=== PATIENT | male | born 1965 | race Caucasian/White ===

== ENCOUNTER 2019-07-24 04:39 | Inpatient (IN) | payer MEDICAID ==
[~2019-07-24] VITALS: Ht 185.4 cm; Wt 71.7 kg
[2019-07-24 04:50] VITALS: BP 165/90
--- NOTE | 2019-07-24 04:50 | NUR ---
ED Nurse Note: Patient walked in to ER due to epigastric pain w/ nausea and vomiting x5 episode since last night after eating dinner. No stated medical history. Alert and oriented, verbally responsive. No SOB. Breathing even and unlabored. Afebrile. VSS.
--- NOTE | 2019-07-24 04:59 | Emergency Room Report ---
History of Present Illness General Chief Complaint: Abdominal Pain Source: Patient (Anisha Narvaez ) Present Illness HPI Patient presents with complaints of midepigastric abdominal pain Reports that he had eaten dinner he was getting ready for sleep The pain came on fairly sharp in nature Patient had some increased nausea denies any vomiting denies any diarrhea Patient reports that his left arm started to feel tingling as well and he presented to [facility] emergency room The is here and reports that after waiting 2 hours they left and came to this emergency room Pain is still persistent 10 out of 10 Cramping and sharp denies any shortness of breath denies any pleurisy (Anisha Narvaez DO) Allergies: Coded Allergies: No Known Allergies (Unverified , 07/24/19) Patient History Past Medical History: see triage record Reviewed Nursing Documentation: PMH: Agreed; PSxH: Agreed (MichaelAnisha solano DO) Review of Systems All Other Systems: negative except mentioned in HPI (Anisha Narvaez DO) Physical Exam Vital Signs Date Time Temp Pulse Resp B/P (MAP) Pulse Ox O2 Delivery O2 Flow Rate FiO2 07/24/19 04:44 98.8 60 20 165/90 (115) 100 Sp02 EP Interpretation: reviewed, normal General Appearance: mild distress - Appears uncomfortable in acute pain Head: normocephalic, atraumatic Eyes: bilateral eye PERRL, bilateral eye EOMI ENT: hearing grossly normal, normal pharynx, TMs + canals normal, uvula midline Neck: full range of motion, supple, no meningismus, no bony tend Respiratory: lungs clear, normal breath sounds, no rhonchi, no respiratory distress, no retraction, no accessory muscle use Cardiovascular #1: normal peripheral pulses, regular rate, rhythm, no edema, no gallop, no JVD, no murmur Gastrointestinal: normal bowel sounds, non tender - On palpation however subjectively points to the epigastric region, soft, no mass, no organomegaly, non-distended, no guarding, no hernia, no pulsatile mass, no rebound Genitourinary: no CVA tenderness Musculoskeletal: normal inspection Neurologic: oriented x3, responsive, activity therapist III-XII nml as tested, motor strength/ tone normal, sensory intact Psychiatric: mood/affect normal Skin: no rash Lymphatic: normal inspection, no adenopathy (Anisha Narvaez DO) Medical Decision Making Diagnostic Impression: Primary Impression: Chest pain Additional Impression: Cholecystitis ER Course Patient is a fairly complex patient with multiple differential to consideration including but not limited to cardiac cardiopulmonary and vascular emergencies Given the epigastric component consideration such as gastritis, cholecystitis, perforation also entertained Patient has initial blood work and imaging initiated X-ray does not show any obvious acute pathology the right hemidiaphragm is mildly elevated nonspecific patient's white blood cell count is elevated at 19, 000 CT imaging is being obtained Patient does feel better after acute intervention Labs Test 07/24/19 04:49 White Blood Count 19.1 K/UL (4.8-10.8) Red Blood Count 5.21 M/UL (4.70-6.10) Hemoglobin 16.7 G/DL (14.2-18.0) Hematocrit 48.0 % (42.0-52.0) Mean Corpuscular Volume 92 FL (80-99) Mean Corpuscular Hemoglobin 32.1 PG (27.0-31.0) Mean Corpuscular Hemoglobin Concent 34.8 G/DL (32.0-36.0) Red Cell Distribution Width 10.9 % (11.6-14.8) Platelet Count 325 K/UL (150-450) Mean Platelet Volume 6.1 FL (6.5-10.1) Neutrophils (%) (Auto) % (45.0-75.0) Lymphocytes (%) (Auto) % (20.0-45.0) Monocytes (%) (Auto) % (1.0-10.0) Eosinophils (%) (Auto) % (0.0-3.0) Basophils (%) (Auto) % (0.0-2.0) Sodium Level 137 MMOL/L (136-145) Potassium Level 4.1 MMOL/L (3.5-5.1) Chloride Level 102 MMOL/L (98-107) Carbon Dioxide Level 22 MMOL/L (21-32) Anion Gap 13 mmol/L (5-15) Blood Urea Nitrogen 22 mg/dL (7-18) Creatinine 1.1 MG/DL (0.55-1.30) Estimat Glomerular Filtration Rate > 60 mL/min (>60) Glucose Level 153 MG/DL (74-106) Calcium Level 9.9 MG/DL (8.5-10.1) (Anisha Narvaez DO) ER Course See above note. CT with possible cholecystitis. Zosyn ordered. Admit Dr. Triplett and consult Dr. Farooq. (Gato Doss MD) EKG Diagnostic Results Rate: normal Rhythm: NSR ST Segments: other - Nonspecific ST changes (Anisha Narvaez DO) Rhythm Strip Diag. Results EP Interpretation: yes Rate: 60 Rhythm: NSR, no PVC's, no ectopy (Anisha Narvaez DO) Chest X-Ray Diagnostic Results Chest X-Ray Diagnostic Results : Chest X-Ray Ordered: Yes # of Views/Limited/Complete: 1 View Indication: Chest Pain EP Interpretation: Yes Interpretation: no consolidation, no effusion, no pneumothorax Impression: No acute disease Electronically Signed by: Anisha Narvaez DO (Anisha Narvaez DO) CT/MRI/US Diagnostic Results CT/MRI/US Diagnostic Results : Imaging Test Ordered: CT abd/pelvis Impression Significantly distended gallbladder with wall thickening and pericholecystic fluid, suspicious for cholecystitis. No definite radiopaque gallstones. No intrahepatic or extrahepatic ductal dilatation. Correlate with clinical findings and sonogram. Diverticulosis. There is stranding noted in the left lower quadrant. If there is left lower quadrant pain, early mild acute diverticulitis suspected. Mild segmental wall thickening of colon can be seen in the setting of mild colitis. No small bowel obstruction. No free air or fluid collections. Trace amount of free fluid. Normal appendix. Small left inguinal hernia containing fat and colon. No secondary intra- abdominal colonic obstruction. There is some induration of the herniated contents. Correlate with point tenderness. Small hemangioma in the right liver lobe. No pancreatitis or pyelonephritis. No hydronephrosis. (Gato Doss MD) Last Vital Signs Date Time Temp Pulse Resp B/P (MAP) Pulse Ox O2 Delivery O2 Flow Rate FiO2 07/24/19 04:44 98.8 60 20 165/90 (115) 100 (Anisha Narvaez DO) Status: improved (Gato Doss MD) Disposition: ADMITTED INPATIENT Condition: Serious Referrals: NOT CHOSEN IPA/,REFERRING (PCP) Anisha Narvaez DO Jul 24, 2019 04:59 Gato Doss MD Jul 24, 2019 07:20
[2019-07-24] MEDS ORDERED: Omnipaque-300 100ml vial INJ PRN (05:00)
[2019-07-24 05:16] LABS: HEMOGLOBIN 16.7 G/DL (14.2-18.0); MEAN CORPUSCULAR VOLUME 92 FL (80-99); PLATELET COUNT 325 K/UL (150-450); RED BLOOD COUNT 5.21 M/UL (4.70-6.10); RED CELL DISTRIBUTION WIDTH 10.9 % (11.6-14.8); WHITE BLOOD COUNT 19.1 K/UL (4.8-10.8)
--- NOTE | 2019-07-24 05:26 | NUR ---
ED Nurse Note: Xray done at bedside.
[2019-07-24 05:32] LABS: ANION GAP 13 mmol/L (5-15); BLOOD UREA NITROGEN 22 mg/dL (7-18); CALCIUM 9.9 MG/DL (8.5-10.1); CARBON DIOXIDE 22 MMOL/L (21-32); CHLORIDE 102 MMOL/L (98-107); CREATININE 1.1 MG/DL (0.55-1.30); POTASSIUM 4.1 MMOL/L (3.5-5.1); SODIUM 137 MMOL/L (136-145)
--- NOTE | 2019-07-24 05:48 | NUR ---
ED Nurse Note: Pt taken for CT.
[2019-07-24 05:50] LABS: ALANINE AMINOTRANSFERASE 39 U/L (12-78); ALBUMIN 4.1 G/DL (3.4-5.0); ALKALINE PHOSPHATASE 62 U/L (46-116); BILIRUBIN,TOTAL 0.4 MG/DL (0.2-1.0); CKMB 1.6 NG/ML (0.0-3.6); CREATINE KINASE 141 U/L (26-308)
--- NOTE | 2019-07-24 06:00 | NUR ---
ED Nurse Note: PT came back from CT.
[2019-07-24 06:28] LABS: ASPARTATE AMINO TRANSFERASE 27 U/L (15-37)
[2019-07-24] MEDS ORDERED: Mylanta II UD 30ml ORAL ONE (06:30)
[2019-07-24] MEDS ORDERED: Dicyclomine HCl 10mg/5ml oral soln ORAL ONE (06:30)
[2019-07-24 06:58] VITALS: BP 145/88
[2019-07-24 07:03] LABS: APPEARANCE,URINE SLIGHTLY CLOUDY; BILIRUBIN, URINE NEGATIVE (NEGATIVE); COLOR,URINE PALE YELLOW; GLUCOSE, URINE (UA) NEGATIVE (NEGATIVE); KETONES,URINE 3+ (NEGATIVE); LEUKOCYTE ESTERASE ,URINE NEGATIVE (NEGATIVE); NITRITE,URINE NEGATIVE (NEGATIVE); PH,URINE 7 (4.5-8.0); PROTEIN,URINE 1+ (NEGATIVE); UROBILINOGEN,URINE NORMAL MG/DL (0.0-1.0)
--- NOTE | 2019-07-24 07:04 | Diagnostic Imaging Report ---
Indication: Abdominal pain Technique: CT of the abdomen and pelvis utilizing automated exposure control with intravenous contrast. Venous scanning performed. Axial, sagittal and coronal reformats presented. CT dose: Total DLP 802.3 mGycm; CTDI vol 14.4 mGy Comparison: None Findings: Minimal dependent atelectasis noted in the lung bases. Heart size within normal limits. No pericardial effusion. There is gallbladder distention. Gallbladder wall thickening and some mild pericholecystic inflammatory changes noted concerning for acute cholecystitis. No radiopaque gallstones identified. No biliary ductal dilatation. Hepatic contour is smooth. Hepatic veins and portal veins appear patent. Within the right hepatic lobe there is a 2.5 cm mass with peripheral nodular enhancement suggesting hemangioma. Spleen adrenal glands unremarkable. Some punctate calcifications noted in the region of the pancreatic head/uncinate process. No peripancreatic inflammatory changes or fluid collections. Pancreatic enhancement is uniform. No pancreatic ductal dilatation. Kidneys enhance symmetrically. No urinary tract stone, hydronephrosis or perinephric stranding. Bladder is mildly distended but otherwise unremarkable. Prostate is mildly heterogeneous. A left inguinal hernia is noted containing loops of the sigmoid colon. Some induration is noted within the herniated contents. Correlation with physical exam is recommended to assess for disability. There is colonic diverticulosis. Some mild stranding is noted in the left lower quadrant which may be related to the described hernia. The possibility of early/mild diverticulitis cannot be excluded. There is evidence of small bowel obstruction. Appendix is normal in caliber. A small fat-containing right inguinal hernia is also noted. Abdominal aorta normal in caliber with scattered atherosclerotic calcifications. There is a small fat-containing umbilical hernia. Mild degenerative changes noted in the lumbar spine. No acute osseous abnormality. IMPRESSION: * Distended gallbladder with wall thickening and mild pericholecystic inflammatory changes concerning for acute cholecystitis. Correlate clinically. Consider further imaging of the gallbladder with ultrasound or HIDA. * Left inguinal hernia containing fat and loop of sigmoid colon. No evidence to suggest associated obstruction. There is some induration of the herniated contents however. Correlate with physical exam to assess for reducibility. * Colonic diverticulosis. Mild stranding noted in the left lower quadrant which may related to the above-described hernia. If there is left lower quadrant pain the possibility of mild diverticulitis cannot be excluded. * Small fat-containing right inguinal hernia and fat-containing umbilical hernia. * Small hemangioma in the right hepatic lobe. Additional findings as above. This corresponds with the preliminary report by [facility]. The CT scanner at [facility] is accredited by the [employer] and the scans are performed using protocols designed to limit radiation exposure to as low as reasonably achievable to attain images of sufficient resolution adequate for diagnostic evaluation.
--- NOTE | 2019-07-24 07:11 | NUR ---
HAND-OFF: Report given to Thais LOGAN. No new further order at this time. Endorsed plan of care.
[2019-07-24] MEDS ORDERED: Piperacillin/Tazobactam 3.375 GM in NS 110 ML IVPB ONE (07:15)
--- NOTE | 2019-07-24 08:09 | NUR ---
ED Nurse Note: Report given to DESMOND Richard at telemetry unit.
--- NOTE | 2019-07-24 08:30 | NUR ---
NURSE NOTES: pt admitted in stable condition. fruit canner on. bed locked and in lowest position. Call light within reach. Pt is AOx4. Belonging list reviewed with pt.
[2019-07-24] MEDS ORDERED: Nitroglycerin Subl 0.4mg tab SL PRN (08:45)
[2019-07-24] MEDS ORDERED: Morphine Sulfate 2mg/ml Inj(IV/IM USE ONLY) IVP PRN (08:45)
[2019-07-24] MEDS ORDERED: Albuterol/Ipratropium 3ml neb HHN PRN (08:45)
[2019-07-24] MEDS ORDERED: Miralax 17gm pkt ORAL PRN (08:45)
[2019-07-24] MEDS ORDERED: dilTIAZem HCl 25mg/5ml Inj IV PRN (08:45)
[2019-07-24] MEDS ORDERED: Enalaprilat 2.5mg/2ml Inj IV PRN (08:45)
[2019-07-24] MEDS ORDERED: Aspirin Baby 81mg ORAL SCH (09:00)
--- NOTE | 2019-07-24 10:03 | Diagnostic Imaging Report ---
Indication: Chest pain Technique: Portable AP views of the chest Comparison: None Findings: Heart size and mediastinal contours are within normal limits for AP technique. There is no focal airspace consolidation, pneumothorax or pleural effusion. Osseous structures demonstrate no acute abnormality. Impression: No radiographic evidence of acute cardiopulmonary disease.
--- NOTE | 2019-07-24 10:08 | General Progress Note ---
Assessment/Plan Problem List: (1) Diverticulitis ICD Codes: K57.92 - Diverticulitis of intestine, part unspecified, without perforation or abscess without bleeding SNOMED: 320064927 Assessment/Plan: abx start clears and advance as tolerated zofran PRN fu labs Subjective ROS Limited/Unobtainable: Yes Allergies: Coded Allergies: No Known Allergies (Unverified , 07/24/19) Objective Last 24 Hour Vital Signs Date Time Temp Pulse Resp B/P (MAP) Pulse Ox O2 Delivery O2 Flow Rate FiO2 07/24/19 08:12 87 18 132/72 99 Room Air 07/24/19 06:58 98.7 77 20 145/88 99 Room Air 07/24/19 04:50 98.8 80 20 165/90 100 Room Air 07/24/19 04:50 60 20 07/24/19 04:44 98.8 60 20 165/90 (115) 100 Intake and Output 07/23/19 07/24/19 19:00 07:00 Intake Total 1000 ml Balance 1000 ml Intake IV Total 1000 ml # Voids 1 Laboratory Tests 07/24/19 04:49: White Blood Count 19.1H, Red Blood Count 5.21, Hemoglobin 16.7, Hematocrit 48.0 , Mean Corpuscular Volume 92, Mean Corpuscular Hemoglobin 32.1H, Mean Corpuscular Hemoglobin Concent 34.8, Red Cell Distribution Width 10.9L, Platelet Count 325, Mean Platelet Volume 6.1L, Neutrophils (%) (Auto) , Lymphocytes (%) (Auto) , Monocytes (%) (Auto) , Eosinophils (%) (Auto) , Basophils (%) (Auto) , Differential Total Cells Counted 100, Neutrophils % ( Manual) 80H, Lymphocytes % (Manual) 15L, Monocytes % (Manual) 5, Eosinophils % ( Manual) 0, Basophils % (Manual) 0, Band Neutrophils 0, Platelet Estimate Adequate, Platelet Morphology Normal, Red Blood Cell Morphology Normal, Sodium Level 137, Potassium Level 4.1, Chloride Level 102, Carbon Dioxide Level 22, Anion Gap 13, Blood Urea Nitrogen 22H, Creatinine 1.1, Estimat Glomerular Filtration Rate > 60, Glucose Level 153H, Calcium Level 9.9, Total Bilirubin 0.4 , Aspartate Amino Transf (AST/SGOT) 27, Alanine Aminotransferase (ALT/SGPT) 39, Alkaline Phosphatase 62, Total Creatine Kinase 141, Creatine Kinase MB 1.6, Creatine Kinase MB Relative Index 1.1, Troponin I 0.000, Total Protein 8.4H, Albumin 4.1, Globulin 4.3, Albumin/Globulin Ratio 1.0, Lipase 270 07/24/19 06:50: Urine Color Pale yellow, Urine Appearance Slightly cloudy, Urine pH 7, Urine Specific [place] 1.005, Urine Protein 1+H, Urine Glucose (UA) Negative, Urine Ketones 3+H, Urine Blood 1+H, Urine Nitrite Negative, Urine Bilirubin Negative, Urine Urobilinogen Normal, Urine Leukocyte Esterase Negative, Urine RBC 0-2H, Urine WBC 0-2, Urine Squamous Epithelial Cells Occasional, Urine Amorphous Sediment ManyH, Urine Bacteria Occasional, Urine Opiates Screen Negative, Urine Barbiturates Screen Negative, Phencyclidine (PCP) Screen Negative, Urine Amphetamines Screen Negative, Urine Benzodiazepines Screen Negative, Urine Cocaine Screen Negative, Urine Marijuana (THC) Screen PositiveH Height (Feet): 6 Weight (Pounds): 150 General Appearance: alert EENT: normal ENT inspection Neck: supple Cardiovascular: normal rate Respiratory/Chest: decreased breath sounds Abdomen: normal bowel sounds, non tender, soft Extremities: non-tender Manish Sotelo MD Jul 24, 2019 10:08
[2019-07-24] MEDS: Heparin 5000 units/ml inj SUBQ SCH ×2 (11:01→21:24)
[2019-07-24] MEDS: Sucralfate 1gm tab ORAL SCH ×4 (11:01→21:24)
[2019-07-24] MEDS: Pantoprazole Inj IV SCH ×2 (11:02→21:24)
--- NOTE | 2019-07-24 11:59 | Consultation ---
History of Present Illness General Date patient seen: Jul 24, 2019 Chief Complaint: Abdominal Pain Present Illness HPI 54 year old male without any significant PMHx presented to ER with complaints of midepigastric abdominal pain, which is fairly sharp in nature with nausea and vomiting denies any diarrhea Patient reports that his left arm started to feel tingling as well and he presented to [facility] emergency room The is here and reports that after waiting 2 hours they left and came to this emergency room Pain is still persistent 10 out of 10 Cramping and sharp denies any shortness of breath denies any pleurisy Allergies: Coded Allergies: No Known Allergies (Unverified , 07/24/19) Medication History No Active Prescriptions or Reported Meds Patient History Healthcare decision maker Resuscitation status Advanced Directive on File Family History Family History: (1) No pertinent past medical history Review of Systems All Other Systems: negative except mentioned in HPI Physical Exam General Appearance: WD/WN, no apparent distress Lines, tubes and drains: peripheral HEENT: normocephalic, atraumatic, anicteric Neck: non-tender, normal alignment Respiratory/Chest: chest wall non-tender, lungs clear Breasts: no masses Cardiovascular/Chest: normal peripheral pulses Abdomen: normal bowel sounds Genitourinary/Rectal: normal genital exam Last 24 Hour Vital Signs Date Time Temp Pulse Resp B/P (MAP) Pulse Ox O2 Delivery O2 Flow Rate FiO2 07/24/19 08:12 87 18 132/72 99 Room Air 07/24/19 06:58 98.7 77 20 145/88 99 Room Air 07/24/19 04:50 98.8 80 20 165/90 100 Room Air 07/24/19 04:50 60 20 07/24/19 04:44 98.8 60 20 165/90 (115) 100 Intake and Output 07/23/19 07/24/19 19:00 07:00 Intake Total 1000 ml Balance 1000 ml Intake IV Total 1000 ml # Voids 1 Laboratory Tests Test 07/24/19 04:49 07/24/19 06:50 White Blood Count 19.1 K/UL (4.8-10.8) H Red Blood Count 5.21 M/UL (4.70-6.10) Hemoglobin 16.7 G/DL (14.2-18.0) Hematocrit 48.0 % (42.0-52.0) Mean Corpuscular Volume 92 FL (80-99) Mean Corpuscular Hemoglobin 32.1 PG (27.0-31.0) H Mean Corpuscular Hemoglobin Concent 34.8 G/DL (32.0-36.0) Red Cell Distribution Width 10.9 % (11.6-14.8) L Platelet Count 325 K/UL (150-450) Mean Platelet Volume 6.1 FL (6.5-10.1) L Neutrophils (%) (Auto) % (45.0-75.0) Lymphocytes (%) (Auto) % (20.0-45.0) Monocytes (%) (Auto) % (1.0-10.0) Eosinophils (%) (Auto) % (0.0-3.0) Basophils (%) (Auto) % (0.0-2.0) Differential Total Cells Counted 100 Neutrophils % (Manual) 80 % (45-75) H Lymphocytes % (Manual) 15 % (20-45) L Monocytes % (Manual) 5 % (1-10) Eosinophils % (Manual) 0 % (0-3) Basophils % (Manual) 0 % (0-2) Band Neutrophils 0 % (0-8) Platelet Estimate Adequate Platelet Morphology Normal Red Blood Cell Morphology Normal Sodium Level 137 MMOL/L (136-145) Potassium Level 4.1 MMOL/L (3.5-5.1) Chloride Level 102 MMOL/L (98-107) Carbon Dioxide Level 22 MMOL/L (21-32) Anion Gap 13 mmol/L (5-15) Blood Urea Nitrogen 22 mg/dL (7-18) H Creatinine 1.1 MG/DL (0.55-1.30) Estimat Glomerular Filtration Rate > 60 mL/min (>60) Glucose Level 153 MG/DL (74-106) H Calcium Level 9.9 MG/DL (8.5-10.1) Total Bilirubin 0.4 MG/DL (0.2-1.0) Aspartate Amino Transf (AST/SGOT) 27 U/L (15-37) Alanine Aminotransferase (ALT/SGPT) 39 U/L (12-78) Alkaline Phosphatase 62 U/L (46-116) Total Creatine Kinase 141 U/L (26-308) Creatine Kinase MB 1.6 NG/ML (0.0-3.6) Creatine Kinase MB Relative Index 1.1 Troponin I 0.000 ng/mL (0.000-0.056) Total Protein 8.4 G/DL (6.4-8.2) H Albumin 4.1 G/DL (3.4-5.0) Globulin 4.3 g/dL Albumin/Globulin Ratio 1.0 (1.0-2.7) Lipase 270 U/L (73-393) Urine Color Pale yellow Urine Appearance Slightly cloudy Urine pH 7 (4.5-8.0) Urine Specific Shirley 1.005 (1.005-1.035) Urine Protein 1+ (NEGATIVE) H Urine Glucose (UA) Negative (NEGATIVE) Urine Ketones 3+ (NEGATIVE) H Urine Blood 1+ (NEGATIVE) H Urine Nitrite Negative (NEGATIVE) Urine Bilirubin Negative (NEGATIVE) Urine Urobilinogen Normal MG/DL (0.0-1.0) Urine Leukocyte Esterase Negative (NEGATIVE) Urine RBC 0-2 /HPF (0 - 0) H Urine WBC 0-2 /HPF (0 - 0) Urine Squamous Epithelial Cells Occasional /LPF Urine Amorphous Sediment Many /LPF (NONE) H Urine Bacteria Occasional /HPF (NONE) Urine Opiates Screen Negative (NEGATIVE) Urine Barbiturates Screen Negative (NEGATIVE) Phencyclidine (PCP) Screen Negative (NEGATIVE) Urine Amphetamines Screen Negative (NEGATIVE) Urine Benzodiazepines Screen Negative (NEGATIVE) Urine Cocaine Screen Negative (NEGATIVE) Urine Marijuana (THC) Screen Positive (NEGATIVE) H Height (Feet): 6 Weight (Pounds): 150 Medications Current Medications Medications (Trade) Dose Ordered Sig/Mckenzie Route PRN Reason Start Time Stop Time Status Last Admin Dose Admin Acetaminophen (Tylenol) 650 mg Q4H PRN ORAL T>100.5 07/24/19 08:45 08/23/19 08:44 07/24/19 10:58 Albuterol/ Ipratropium (Albuterol/ Ipratropium) 3 ml Q4H PRN HHN Shortness of Breath 07/24/19 08:45 07/29/19 08:44 Diltiazem HCl (Cardizem) 10 mg EVERY HOUR PRN IV heart rate more than 120BPM 07/24/19 08:45 08/23/19 08:44 Enalaprilat (Vasotec) 2.5 mg Q6H PRN IV sbp more than 160 07/24/19 08:45 08/23/19 08:44 Heparin Sodium (Porcine) (Heparin 5000 units/ml) 5,000 units EVERY 12 HOURS SUBQ 07/24/19 09:00 08/23/19 08:59 07/24/19 11:01 Iohexol (OMNIPAQUE-300 100ml) 100 ml NOW PRN INJ Radiology Procedure 07/24/19 05:00 07/26/19 04:54 Morphine Sulfate (Morphine Sulfate) 2 mg Q4H PRN IVP Severe Pain (Pain Scale 7-10) 07/24/19 08:45 07/31/19 08:44 Nitroglycerin (Ntg) 0.4 mg Q5MIN X 3 DOSES PRN SL Prn Chest Pain 07/24/19 08:45 08/23/19 08:44 Ondansetron HCl (Zofran) 4 mg Q6H PRN IVP Nausea & Vomiting 07/24/19 08:45 08/23/19 08:44 Pantoprazole (Protonix) 40 mg Q12HR IV 07/24/19 09:00 08/23/19 08:59 07/24/19 11:02 Polyethylene Glycol (Miralax) 17 gm DAILYPRN PRN ORAL Constipation 07/24/19 08:45 08/23/19 08:44 Sodium Chloride 1,000 ml @ 75 mls/hr [id number] IV 07/25/19 07:30 08/23/19 07:29 UNV Sucralfate (Carafate) 1 gm FOUR TIMES A DAY ORAL 07/24/19 09:00 08/23/19 08:59 07/24/19 11:01 Temazepam (Restoril) 15 mg HSPRN PRN ORAL Insomnia 07/24/19 21:00 07/31/19 20:59 Assessment/Plan Problem List: (1) Diverticulitis ICD Codes: K57.92 - Diverticulitis of intestine, part unspecified, without perforation or abscess without bleeding SNOMED: 639370455 (2) Cholecystitis ICD Codes: K81.9 - Cholecystitis, unspecified SNOMED: 22081965 (3) No pertinent past medical history ICD Codes: Z78.9 - Other specified health status SNOMED: 265487233 Assessment/Plan: NPO IV abx US of abdomen GI evaluation ID evaluation. Braxton Johnson MD Jul 24, 2019 11:59
[2019-07-24] MEDS ORDERED: Piperacillin/Tazobactam 3.375 GM in NS 110 ML IVPB SCH (14:00)
--- NOTE | 2019-07-24 16:35 | Consultation ---
History of Present Illness General Date patient seen: Jul 24, 2019 Chief Complaint: Abdominal Pain Present Illness HPI 54 y/o M with no pertinent medical history presented to ED on 07/24 with mid epigastric abdominal pain, sharp in nature, nausea, vomiting. Also endorsed L arm tingling. Denied diarrhea, SOB Allergies: Coded Allergies: No Known Allergies (Unverified , 07/24/19) Medication History No Active Prescriptions or Reported Meds Patient History Healthcare decision maker Resuscitation status Advanced Directive on File Patient History Narrative Pmhx: as above Shx: reviewed Fhx: non contributory Physical Exam Physical Exam Narrative General Appearance: WD/WN, no apparent distress Lines, tubes and drains: peripheral HEENT: normocephalic, atraumatic, anicteric Neck: non-tender, normal alignment Respiratory/Chest: chest wall non-tender, lungs clear Cardiovascular/Chest: normal peripheral pulses Abdomen: normal bowel sounds Last 24 Hour Vital Signs Date Time Temp Pulse Resp B/P (MAP) Pulse Ox O2 Delivery O2 Flow Rate FiO2 07/24/19 08:12 87 18 132/72 99 Room Air 07/24/19 06:58 98.7 77 20 145/88 99 Room Air 07/24/19 04:50 98.8 80 20 165/90 100 Room Air 07/24/19 04:50 60 20 07/24/19 04:44 98.8 60 20 165/90 (115) 100 Intake and Output 07/23/19 07/24/19 18:59 06:59 Intake Total 1000 ml Balance 1000 ml Intake IV Total 1000 ml # Voids 1 Laboratory Tests Test 07/24/19 04:49 07/24/19 06:50 07/24/19 13:15 White Blood Count 19.1 K/UL (4.8-10.8) H Red Blood Count 5.21 M/UL (4.70-6.10) Hemoglobin 16.7 G/DL (14.2-18.0) Hematocrit 48.0 % (42.0-52.0) Mean Corpuscular Volume 92 FL (80-99) Mean Corpuscular Hemoglobin 32.1 PG (27.0-31.0) H Mean Corpuscular Hemoglobin Concent 34.8 G/DL (32.0-36.0) Red Cell Distribution Width 10.9 % (11.6-14.8) L Platelet Count 325 K/UL (150-450) Mean Platelet Volume 6.1 FL (6.5-10.1) L Neutrophils (%) (Auto) % (45.0-75.0) Lymphocytes (%) (Auto) % (20.0-45.0) Monocytes (%) (Auto) % (1.0-10.0) Eosinophils (%) (Auto) % (0.0-3.0) Basophils (%) (Auto) % (0.0-2.0) Differential Total Cells Counted 100 Neutrophils % (Manual) 80 % (45-75) H Lymphocytes % (Manual) 15 % (20-45) L Monocytes % (Manual) 5 % (1-10) Eosinophils % (Manual) 0 % (0-3) Basophils % (Manual) 0 % (0-2) Band Neutrophils 0 % (0-8) Platelet Estimate Adequate Platelet Morphology Normal Red Blood Cell Morphology Normal Sodium Level 137 MMOL/L (136-145) Potassium Level 4.1 MMOL/L (3.5-5.1) Chloride Level 102 MMOL/L (98-107) Carbon Dioxide Level 22 MMOL/L (21-32) Anion Gap 13 mmol/L (5-15) Blood Urea Nitrogen 22 mg/dL (7-18) H Creatinine 1.1 MG/DL (0.55-1.30) Estimat Glomerular Filtration Rate > 60 mL/min (>60) Glucose Level 153 MG/DL (74-106) H Calcium Level 9.9 MG/DL (8.5-10.1) Total Bilirubin 0.4 MG/DL (0.2-1.0) Aspartate Amino Transf (AST/SGOT) 27 U/L (15-37) Alanine Aminotransferase (ALT/SGPT) 39 U/L (12-78) Alkaline Phosphatase 62 U/L (46-116) Total Creatine Kinase 141 U/L (26-308) Creatine Kinase MB 1.6 NG/ML (0.0-3.6) Creatine Kinase MB Relative Index 1.1 Troponin I 0.000 ng/mL (0.000-0.056) 0.000 ng/mL (0.000-0.056) Total Protein 8.4 G/DL (6.4-8.2) H Albumin 4.1 G/DL (3.4-5.0) Globulin 4.3 g/dL Albumin/Globulin Ratio 1.0 (1.0-2.7) Lipase 270 U/L (73-393) Urine Color Pale yellow Urine Appearance Slightly cloudy Urine pH 7 (4.5-8.0) Urine Specific [place] 1.005 (1.005-1.035) Urine Protein 1+ (NEGATIVE) H Urine Glucose (UA) Negative (NEGATIVE) Urine Ketones 3+ (NEGATIVE) H Urine Blood 1+ (NEGATIVE) H Urine Nitrite Negative (NEGATIVE) Urine Bilirubin Negative (NEGATIVE) Urine Urobilinogen Normal MG/DL (0.0-1.0) Urine Leukocyte Esterase Negative (NEGATIVE) Urine RBC 0-2 /HPF (0 - 0) H Urine WBC 0-2 /HPF (0 - 0) Urine Squamous Epithelial Cells Occasional /LPF Urine Amorphous Sediment Many /LPF (NONE) H Urine Bacteria Occasional /HPF (NONE) Urine Opiates Screen Negative (NEGATIVE) Urine Barbiturates Screen Negative (NEGATIVE) Phencyclidine (PCP) Screen Negative (NEGATIVE) Urine Amphetamines Screen Negative (NEGATIVE) Urine Benzodiazepines Screen Negative (NEGATIVE) Urine Cocaine Screen Negative (NEGATIVE) Urine Marijuana (THC) Screen Positive (NEGATIVE) H Height (Feet): 6 Weight (Pounds): 150 Medications Current Medications Medications (Trade) Dose Ordered Sig/Mckenzie Route PRN Reason Start Time Stop Time Status Last Admin Dose Admin Acetaminophen (Tylenol) 650 mg Q4H PRN ORAL T>100.5 07/24/19 08:45 08/23/19 08:44 07/24/19 10:58 Albuterol/ Ipratropium (Albuterol/ Ipratropium) 3 ml Q4H PRN HHN Shortness of Breath 07/24/19 08:45 07/29/19 08:44 Diltiazem HCl (Cardizem) 10 mg EVERY HOUR PRN IV heart rate more than 120BPM 07/24/19 08:45 08/23/19 08:44 Enalaprilat (Vasotec) 2.5 mg Q6H PRN IV sbp more than 160 07/24/19 08:45 08/23/19 08:44 Heparin Sodium (Porcine) (Heparin 5000 units/ml) 5,000 units EVERY 12 HOURS SUBQ 07/24/19 09:00 08/23/19 08:59 10/18/19 11:01 Iohexol (OMNIPAQUE-300 100ml) 100 ml NOW PRN INJ Radiology Procedure 07/24/19 05:00 07/26/19 04:54 Morphine Sulfate (Morphine Sulfate) 2 mg Q4H PRN IVP Severe Pain (Pain Scale 7-10) 07/24/19 08:45 07/31/19 08:44 Nitroglycerin (Ntg) 0.4 mg Q5MIN X 3 DOSES PRN SL Prn Chest Pain 07/24/19 08:45 08/23/19 08:44 Ondansetron HCl (Zofran) 4 mg Q6H PRN IVP Nausea & Vomiting 07/24/19 08:45 08/23/19 08:44 Pantoprazole (Protonix) 40 mg Q12HR IV 07/24/19 09:00 08/23/19 08:59 07/24/19 11:02 Piperacillin Sod/ Tazobactam Sod 3.375 gm/Sodium Chloride 110 ml @ 27.5 mls/hr EVERY 8 HOURS IVPB 07/24/19 14:00 07/29/19 13:59 07/24/19 13:50 Polyethylene Glycol (Miralax) 17 gm DAILYPRN PRN ORAL Constipation 07/24/19 08:45 08/23/19 08:44 Sodium Chloride 1,000 ml @ 75 mls/hr [id number] IV 07/24/19 12:00 08/23/19 11:59 07/24/19 12:00 Sucralfate (Carafate) 1 gm FOUR TIMES A DAY ORAL 07/24/19 09:00 08/23/19 08:59 07/24/19 13:50 Temazepam (Restoril) 15 mg HSPRN PRN ORAL Insomnia 07/24/19 21:00 07/31/19 20:59 Assessment/Plan Assessment/Plan: Abx: Zosyn 07/24- Assessment: Abdominal pain- 2ry to Acute cholecystitis -CT abd/p: Distended gallbladder with wall thickening and mild pericholecystic inflammatory changes concerning for acute cholecystitis. Correlate clinically. Consider further imaging of the gallbladder with ultrasound or HIDA. Left inguinal hernia containing fat and loop of sigmoid colon. No evidence to suggest associated obstruction. There is some induration of the herniated contents however. Correlate with physical exam to assess for reducibility.Colonic diverticulosis. Mild stranding noted in the left lower quadrant which may related to the above-described hernia. If there is left lower quadrant pain the possibility of mild diverticulitis cannot be excluded. Small fat-containing right inguinal hernia and fat-containing umbilical hernia. Small hemangioma in the right hepatic lobe. Afebrile Leukocytosis -CXR: no acute disease -u/a neg Plan: -Switch Zosyn #1 to IV Ceftriaxone and Flagyl for acute cholecystitis -f/u cx -Monitor CBC/CMP, temperatures -Sx, GI f/u -f/u Abd US Thank you for this consultation. Will continue to follow along with you. Discussed with Georgina Izaguirre M.D. Jul 24, 2019 16:35
--- NOTE | 2019-07-24 17:05 | Consultation ---
History of Present Illness General Date patient seen: Jul 24, 2019 Reason for Hospitalization: Abdominal Pain Present Illness HPI 54-year-old male presents with abdominal pain nausea and discomfort. States it happened for about a day prior to admission. Pain epigastric 8 out of 10 without radiation. No similar symptoms prior. States decreased appetite. In emergency department noted to have a leukocytosis of 19,000. CT scan as below. Surgery called to evaluate and assist with care. Patient seen, patient evaluated, chart reviewed Allergies: Coded Allergies: No Known Allergies (Unverified , 07/24/19) Medication History No Active Prescriptions or Reported Meds Patient History History Provided By: Patient, Medical Record, PMD Healthcare decision maker Resuscitation status Advanced Directive on File Past Medical/Surgical History Past Medical/Surgical History: (1) Chest pain (2) Diverticulitis (3) No pertinent past medical history (4) Cholecystitis Review of Systems Review of Symptoms General ROS: no weight loss or fever Psychological ROS: no depression or mood changes, no memory loss Ophthalmic ROS: no visual changes or eye irritation ENT ROS: no nasal congestion, hearing loss, dizziness Allergy and Immunology ROS: no allergic symptoms or urticaria Hematological and Lymphatic ROS: no swollen glands, unusual bleeding or bruising Endocrine ROS: no polyuria, polydipsia, weight changes, temperature intolerance Respiratory ROS: no cough, shortness of breath, or wheezing Cardiovascular ROS: no chest pain or dyspnea on exertion Gastrointestinal ROS: abdominal pain, bright red blood in stool. Musculoskeletal ROS: no myalgias or arthralgias Neurological ROS: no TIA or stroke symptoms Dermatological ROS: no new or changing skin lesions, rashes or pruritis Physical Exam Physical Exam General appearance: alert, cooperative, no distress, appears stated age Head: Normocephalic, without obvious abnormality, atraumatic Eyes: conjunctivae/corneas clear. PERRL, EOM's intact. Fundi benign Throat: Lips, mucosa, and tongue normal. Teeth and gums normal Neck: supple, symmetrical, trachea midline, no adenopathy, thyroid: not enlarged, symmetric, no tenderness/mass/nodules, no carotid bruit and no JVD Lungs: clear to auscultation bilaterally Heart: regular rate and rhythm, S1, S2 normal, no murmur, click, rub or gallop Abdomen: soft,mild RUQ discomfort . Bowel sounds normal. No masses, no organomegaly Extremities: extremities normal, atraumatic, no cyanosis or edema Pulses: 2+ and symmetric Skin: Skin color, texture, turgor normal. No rashes or lesions Neurologic: Grossly normal Last 24 Hour Vital Signs Date Time Temp Pulse Resp B/P (MAP) Pulse Ox O2 Delivery O2 Flow Rate FiO2 07/24/19 08:12 87 18 132/72 99 Room Air 07/24/19 06:58 98.7 77 20 145/88 99 Room Air 07/24/19 04:50 98.8 80 20 165/90 100 Room Air 07/24/19 04:50 60 20 07/24/19 04:44 98.8 60 20 165/90 (115) 100 Intake and Output 07/23/19 07/24/19 18:59 06:59 Intake Total 1000 ml Balance 1000 ml Intake IV Total 1000 ml # Voids 1 Laboratory Tests Test 07/24/19 04:49 07/24/19 06:50 07/24/19 13:15 White Blood Count 19.1 K/UL (4.8-10.8) H Red Blood Count 5.21 M/UL (4.70-6.10) Hemoglobin 16.7 G/DL (14.2-18.0) Hematocrit 48.0 % (42.0-52.0) Mean Corpuscular Volume 92 FL (80-99) Mean Corpuscular Hemoglobin 32.1 PG (27.0-31.0) H Mean Corpuscular Hemoglobin Concent 34.8 G/DL (32.0-36.0) Red Cell Distribution Width 10.9 % (11.6-14.8) L Platelet Count 325 K/UL (150-450) Mean Platelet Volume 6.1 FL (6.5-10.1) L Neutrophils (%) (Auto) % (45.0-75.0) Lymphocytes (%) (Auto) % (20.0-45.0) Monocytes (%) (Auto) % (1.0-10.0) Eosinophils (%) (Auto) % (0.0-3.0) Basophils (%) (Auto) % (0.0-2.0) Differential Total Cells Counted 100 Neutrophils % (Manual) 80 % (45-75) H Lymphocytes % (Manual) 15 % (20-45) L Monocytes % (Manual) 5 % (1-10) Eosinophils % (Manual) 0 % (0-3) Basophils % (Manual) 0 % (0-2) Band Neutrophils 0 % (0-8) Platelet Estimate Adequate Platelet Morphology Normal Red Blood Cell Morphology Normal Sodium Level 137 MMOL/L (136-145) Potassium Level 4.1 MMOL/L (3.5-5.1) Chloride Level 102 MMOL/L (98-107) Carbon Dioxide Level 22 MMOL/L (21-32) Anion Gap 13 mmol/L (5-15) Blood Urea Nitrogen 22 mg/dL (7-18) H Creatinine 1.1 MG/DL (0.55-1.30) Estimat Glomerular Filtration Rate > 60 mL/min (>60) Glucose Level 153 MG/DL (74-106) H Calcium Level 9.9 MG/DL (8.5-10.1) Total Bilirubin 0.4 MG/DL (0.2-1.0) Aspartate Amino Transf (AST/SGOT) 27 U/L (15-37) Alanine Aminotransferase (ALT/SGPT) 39 U/L (12-78) Alkaline Phosphatase 62 U/L (46-116) Total Creatine Kinase 141 U/L (26-308) Creatine Kinase MB 1.6 NG/ML (0.0-3.6) Creatine Kinase MB Relative Index 1.1 Troponin I 0.000 ng/mL (0.000-0.056) 0.000 ng/mL (0.000-0.056) Total Protein 8.4 G/DL (6.4-8.2) H Albumin 4.1 G/DL (3.4-5.0) Globulin 4.3 g/dL Albumin/Globulin Ratio 1.0 (1.0-2.7) Lipase 270 U/L (73-393) Urine Color Pale yellow Urine Appearance Slightly cloudy Urine pH 7 (4.5-8.0) Urine Specific [place] 1.005 (1.005-1.035) Urine Protein 1+ (NEGATIVE) H Urine Glucose (UA) Negative (NEGATIVE) Urine Ketones 3+ (NEGATIVE) H Urine Blood 1+ (NEGATIVE) H Urine Nitrite Negative (NEGATIVE) Urine Bilirubin Negative (NEGATIVE) Urine Urobilinogen Normal MG/DL (0.0-1.0) Urine Leukocyte Esterase Negative (NEGATIVE) Urine RBC 0-2 /HPF (0 - 0) H Urine WBC 0-2 /HPF (0 - 0) Urine Squamous Epithelial Cells Occasional /LPF Urine Amorphous Sediment Many /LPF (NONE) H Urine Bacteria Occasional /HPF (NONE) Urine Opiates Screen Negative (NEGATIVE) Urine Barbiturates Screen Negative (NEGATIVE) Phencyclidine (PCP) Screen Negative (NEGATIVE) Urine Amphetamines Screen Negative (NEGATIVE) Urine Benzodiazepines Screen Negative (NEGATIVE) Urine Cocaine Screen Negative (NEGATIVE) Urine Marijuana (THC) Screen Positive (NEGATIVE) H Height (Feet): 6 Weight (Pounds): 150 Medications Current Medications Medications (Trade) Dose Ordered Sig/Mckenzie Route PRN Reason Start Time Stop Time Status Last Admin Dose Admin Acetaminophen (Tylenol) 650 mg Q4H PRN ORAL T>100.5 07/24/19 08:45 08/23/19 08:44 07/24/19 16:51 Albuterol/ Ipratropium (Albuterol/ Ipratropium) 3 ml Q4H PRN HHN Shortness of Breath 07/24/19 08:45 07/29/19 08:44 Diltiazem HCl (Cardizem) 10 mg EVERY HOUR PRN IV heart rate more than 120BPM 07/24/19 08:45 08/23/19 08:44 Enalaprilat (Vasotec) 2.5 mg Q6H PRN IV sbp more than 160 07/24/19 08:45 08/23/19 08:44 Heparin Sodium (Porcine) (Heparin 5000 units/ml) 5,000 units EVERY 12 HOURS SUBQ 07/24/19 09:00 08/23/19 08:59 07/24/19 11:01 Iohexol (OMNIPAQUE-300 100ml) 100 ml NOW PRN INJ Radiology Procedure 07/24/19 05:00 07/26/19 04:54 Morphine Sulfate (Morphine Sulfate) 2 mg Q4H PRN IVP Severe Pain (Pain Scale 7-10) 07/24/19 08:45 07/31/19 08:44 Nitroglycerin (Ntg) 0.4 mg Q5MIN X 3 DOSES PRN SL Prn Chest Pain 07/24/19 08:45 08/23/19 08:44 Ondansetron HCl (Zofran) 4 mg Q6H PRN IVP Nausea & Vomiting 07/24/19 08:45 11/17/19 08:44 07/24/19 16:51 Pantoprazole (Protonix) 40 mg Q12HR IV 07/24/19 09:00 08/23/19 08:59 07/24/19 11:02 Piperacillin Sod/ Tazobactam Sod 3.375 gm/Sodium Chloride 110 ml @ 27.5 mls/hr EVERY 8 HOURS IVPB 07/24/19 14:00 07/29/19 13:59 07/24/19 13:50 Polyethylene Glycol (Miralax) 17 gm DAILYPRN PRN ORAL Constipation 07/24/19 08:45 08/23/19 08:44 Sodium Chloride 1,000 ml @ 75 mls/hr [id number] IV 07/24/19 12:00 08/23/19 11:59 07/24/19 12:00 Sucralfate (Carafate) 1 gm FOUR TIMES A DAY ORAL 07/24/19 09:00 08/23/19 08:59 07/24/19 13:50 Temazepam (Restoril) 15 mg HSPRN PRN ORAL Insomnia 07/24/19 21:00 07/31/19 20:59 Assessment/Plan Problem List: (1) Abdominal pain Assessment & Plan: 54-year-old male with abdominal pain. Leukocytosis. CT scan with distended gallbladder, inguinal hernia, umbilical hernia, Diverticula Afebrile hemodynamic stable labs as above CT as below States the pain is improved since admission Currently tolerating clear liquids Abdominal ultrasound pending No acute surgical intervention at this time We will monitor for improvement. If no improvement will proceed with further imaging and potentially surgery if necessary Antibiotics as per infectious disease We will follow with recommendations thank you for allowing participate patient' s care ICD Codes: R10.9 - Unspecified abdominal pain SNOMED: 16143281 (2) Cholecystitis Assessment & Plan: * Distended gallbladder with wall thickening and mild pericholecystic inflammatory changes concerning for acute cholecystitis. Correlate clinically. Consider further imaging of the gallbladder with ultrasound or HIDA. * Left inguinal hernia containing fat and loop of sigmoid colon. No evidence to suggest associated obstruction. There is some induration of the herniated contents however. Correlate with physical exam to assess for reducibility. * Colonic diverticulosis. Mild stranding noted in the left lower quadrant which may related to the above-described hernia. If there is left lower quadrant pain the possibility of mild diverticulitis cannot be excluded. * Small fat-containing right inguinal hernia and fat-containing umbilical hernia. * Small hemangioma in the right hepatic lobe. Additional findings as above. This corresponds with the preliminary report by [facility]. ICD Codes: K81.9 - Cholecystitis, unspecified SNOMED: [id number] Shelton Farooq Jul 24, 2019 17:05
--- NOTE | 2019-07-24 17:33 | Diagnostic Imaging Report ---
Indication: Abdominal pain Technique: Multiplanar duplex and color Doppler imaging of the abdomen Comparison: CT abdomen pelvis from earlier the same day Findings: Imaged portions of the abdominal aorta normal in caliber. Pancreas is poorly evaluated due to overlying bowel gas. Imaged portions appear grossly unremarkable. Liver is normal in size. Hepatic contour appears smooth. A echogenic mass is noted in the right hepatic lobe consistent with the hemangioma noted in this region on CT. Imaged hepatic veins and portal veins appear patent. Gallbladder is distended. There is cholelithiasis. There is mild gallbladder wall thickening. Sonographic Mendenhall sign was reported as positive. There is no intrahepatic biliary ductal dilatation. Common bile duct is normal in caliber measuring 2.7 mm. There is no hydronephrosis bilaterally. Renal echogenicity appears within normal limits. Subcentimeter echogenic focus in the left kidney which may represent a small angiomyolipomas. Spleen is normal in size. No free pelvic fluid identified. IMPRESSION: Cholelithiasis and positive sonographic Mendenhall's sign suggesting acute cholecystitis. Small hemangioma in the right hepatic lobe. 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
--- NOTE | 2019-07-24 18:48 | History & Physical ---
History and Physical History & Physicial job: [id number] Wan Triplett MD Jul 24, 2019 18:48
--- NOTE | 2019-07-24 19:30 | History and Physical Report ---
DATE OF ADMISSION: 07/24/2019 CHIEF COMPLAINT: Abdominal pain. HISTORY OF PRESENT ILLNESS: This is a 54-year-old gentleman, denies any past medical history and past surgical history, who presented to the emergency room complaining about abdominal pain mostly epigastric area, sharp in nature, associated with nausea vomiting. Denies any diarrhea. The patient reported that left arm started to feel tingling as well and presented to the emergency room at [facility]. His reported that waiting for two hours than left and came to the emergency room at [facility]. The pain is 10/10 in intensity, crampy, sharp pain. Denies any shortness of breath. Denies any pleurisy. Shortly after initial evaluation in the emergency, the patient was admitted to the hospital with abdominal pain most likely secondary to acute cholecystitis. PAST MEDICAL/PAST SURGICAL HISTORY: None. MEDICATIONS AT HOME: None. ALLERGIES: No known drug allergies. SOCIAL HISTORY: The patient smokes 4 to 5 cigarettes a day. Denies any substance abuse history. Drinks alcohol socially. He works in [employer]. FAMILY HISTORY: Father is healthy at 82 with diabetes history. Mother with pancreatic cancer. Brother history of coronary artery disease. REVIEW OF SYSTEMS: Mostly as above. Denies any dysuria, frequency, hematuria. Complaining of abdominal pain. Complaining of nausea and vomiting. Denies any hemoptysis or hematochezia. Denies any bright red blood per rectum. PHYSICAL EXAMINATION: VITAL SIGNS: On admission, temperature 98.8, pulse of 60, respirations 20, and blood pressure 165/90, repeat one is 132/72. GENERAL: The patient is awake, responsive, no acute distress. HEENT: Head and neck examination, pupils are reactive to light. Extraocular movements intact. NECK: Supple. No JVD. LUNGS: Good air entry. No wheezing or rales. HEART: S1 and S2. Regular rhythm. No murmur or gallops. ABDOMEN: Soft. Tenderness in the epigastric area. No rebound tenderness. No fluid shift. The patient has a hernia on the left side, left groin inguinal area and umbilical hernia was noted. EXTREMITIES: No cyanosis, clubbing, edema NEUROLOGIC: Cranial nerves II through XII grossly normal. Motor is 5/5 in all extremities. Gait is intact. RECTAL: Refused and deferred. GENITOURINARY: Refused and deferred. PSYCHIATRIC: Mood and affect is intact LABORATORY AND DIAGNOSTIC DATA: On admission from the ER WBC of 19, hemoglobin 16, hematocrit 48, platelets is 325. Sodium 137, potassium 4.1, chloride 102, bicarbonate 22, BUN 22, creatinine 1.1, glucose is 153. First and second troponin is all negative. Lipase is 270. UA is +1 protein, +3 ketone, +1 blood, many amorphous. Urine drug screen positive for marijuana. 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 CT scan of the abdomen confirmed that the patient have distended gallbladder with wall thickening with mild pericolonic inflammation changes concern about acute cholecystitis, left inguinal hernia containing fat and loops of the sigmoid colon, no evidence to suggest associated obstruction. There is some induration of the hernia, colonic diverticulosis, mild stranding noted in the left lower quadrant, which may be related to the above described hernia, small fat containing right inguinal hernia and a fat containing umbilical hernia, small hemangioma in the right hepatic lobe. ASSESSMENT: 1. Abdominal pain, leukocytosis most likely secondary to the acute cholecystitis. 2. Left inguinal hernia. 3. Umbilical hernia. PLAN: Admit the patient to monitored floor. We will follow up laboratory. Aggressive IV hydration. Keep the patient NPO, start the patient on broad-spectrum antibiotics with Rocephin and Flagyl. We will follow up with laboratory in the morning. Code status is Full Code. DVT prophylaxis. Heparin subcutaneous. We will follow up with the surgical consultation with Dr. Farooq as well as GI consultation with Dr. Sotelo and Infectious Disease consultation with Dr. Fields Wan Triplett M.D. DR: Paulette JOB#: [id number] CC:
[2019-07-24 20:00] VITALS: BP 120/73
--- NOTE | 2019-07-24 20:00 | NUR ---
NURSE NOTES: Received pt and report from DESMOND Richard. Observed pt resting in bed with both eyes open and watching television. Pt is A/Ox4. air sampling and monitoring is in placed, IV site intact, asymptomatic, and patent. Bed is in the lowest position and locked. Call light within reach. No signs/ symptoms of acute distress noted at this time. Will continue plan of care.
--- NOTE | 2019-07-24 20:30 | NUR ---
HAND-OFF: Report given to Milka/RN.
[2019-07-24] MEDS: metroNIDAZOLE 500mg tab ORAL SCH (21:22)
[2019-07-24] MEDS ORDERED: cefTRIAXone 1 GM in D5W 55 ML IVPB SCH (22:00)
[2019-07-25] VITALS: BP 125/76
[2019-07-25 04:00] VITALS: BP 123/74
[2019-07-25] MEDS: metroNIDAZOLE 500mg tab ORAL SCH ×3 (05:41→21:09)
--- NOTE | 2019-07-25 07:26 | NUR ---
HAND-OFF: Report given to DESMOND Richard. Pt is in stable condition. Plan of care endorsed.
--- NOTE | 2019-07-25 07:49 | Pulmonology Progress Note ---
Assessment/Plan Problems: (1) Diverticulitis (2) Cholecystitis (3) No pertinent past medical history Assessment/Plan ID evaluation appreciated continue abx check electrolytes analgesics med/surg Subjective ROS Limited/Unobtainable: No Constitutional: Reports: no symptoms HEENT: Repors: no symptoms Respiratory: Reports: no symptoms Allergies: Coded Allergies: No Known Allergies (Unverified , 07/24/19) Objective Last 24 Hour Vital Signs Date Time Temp Pulse Resp B/P (MAP) Pulse Ox O2 Delivery O2 Flow Rate FiO2 07/25/19 05:47 78 18 100 Room Air 21 77 18 97 07/25/19 04:00 78 07/25/19 04:00 98.4 78 17 123/74 (90) 94 07/25/19 00:00 98.9 106 19 125/76 (92) 95 07/25/19 00:00 106 07/24/19 21:00 Room Air 07/24/19 20:00 98.7 91 18 120/73 (89) 93 07/24/19 20:00 72 07/24/19 19:30 87 18 97 Room Air 21 07/24/19 16:56 Room Air 07/24/19 10:00 Room Air 07/24/19 08:12 87 18 132/72 99 Room Air Intake and Output 07/24/19 07/25/19 19:00 07:00 Intake Total 120 ml 140 ml Balance 120 ml 140 ml Intake Oral 120 ml 140 ml # Voids 2 General Appearance: WD/WN HEENT: normocephalic Respiratory/Chest: chest wall non-tender, lungs clear Cardiovascular: normal peripheral pulses, normal rate Abdomen: soft, non tender Genitourinary: normal external genitalia Skin: no rash Neurologic/Psychiatric: couples therapist II-XII grossly normal Laboratory Tests 07/24/19 13:15: Troponin I 0.000 Current Medications Medications (Trade) Dose Ordered Sig/Mckenzie Route PRN Reason Start Time Stop Time Status Last Admin Dose Admin Acetaminophen (Tylenol) 650 mg Q4H PRN ORAL T>100.5 07/24/19 08:45 08/23/19 08:44 07/25/19 01:48 Albuterol/ Ipratropium (Albuterol/ Ipratropium) 3 ml Q4H PRN HHN Shortness of Breath 07/24/19 08:45 07/29/19 08:44 07/25/19 05:46 Ceftriaxone Sodium 1 gm/ Dextrose 55 ml @ 110 mls/hr Q24H IVPB 07/24/19 22:00 07/31/19 21:59 07/24/19 21:24 Diltiazem HCl (Cardizem) 10 mg EVERY HOUR PRN IV heart rate more than 120BPM 07/24/19 08:45 08/23/19 08:44 Enalaprilat (Vasotec) 2.5 mg Q6H PRN IV sbp more than 160 07/24/19 08:45 08/23/19 08:44 Heparin Sodium (Porcine) (Heparin 5000 units/ml) 5,000 units EVERY 12 HOURS SUBQ 07/24/19 09:00 08/23/19 08:59 07/24/19 21:24 Iohexol (OMNIPAQUE-300 100ml) 100 ml NOW PRN INJ Radiology Procedure 07/24/19 05:00 07/26/19 04:54 Metronidazole (Flagyl) 500 mg Q8HR ORAL 07/24/19 22:00 07/31/19 21:59 07/25/19 05:41 Morphine Sulfate (Morphine Sulfate) 2 mg Q4H PRN IVP Severe Pain (Pain Scale 7-10) 07/24/19 08:45 07/31/19 08:44 Nitroglycerin (Ntg) 0.4 mg Q5MIN X 3 DOSES PRN SL Prn Chest Pain 07/24/19 08:45 08/23/19 08:44 Ondansetron HCl (Zofran) 4 mg Q6H PRN IVP Nausea & Vomiting 07/24/19 08:45 08/23/19 08:44 07/24/19 16:51 Pantoprazole (Protonix) 40 mg Q12HR IV 07/24/19 09:00 08/23/19 08:59 07/24/19 21:24 Polyethylene Glycol (Miralax) 17 gm DAILYPRN PRN ORAL Constipation 07/24/19 08:45 08/23/19 08:44 Sodium Chloride 1,000 ml @ 75 mls/hr [id number] IV 07/24/19 12:00 08/23/19 11:59 07/25/19 01:23 Sucralfate (Carafate) 1 gm FOUR TIMES A DAY ORAL 07/24/19 09:00 08/23/19 08:59 07/24/19 21:24 Temazepam (Restoril) 15 mg HSPRN PRN ORAL Insomnia 07/24/19 21:00 07/31/19 20:59 Braxton Johnson MD Jul 25, 2019 07:49
--- NOTE | 2019-07-25 07:50 | NUR ---
NURSE NOTES: pt is awake and talking. Pt food tray is at bedside. pt on phototypesetting equipment monitor no signs of cardiac or respiratory distress. Call light is within reach. Bed is locked and in lowest position. IV is patent and running. Will continue to monitor pt.
[2019-07-25 08:00] VITALS: BP 130/77
[2019-07-25 08:38] LABS: INR 1.1 (0.9-1.1)
[2019-07-25 08:42] LABS: HEMATOCRIT 42.4 % (42.0-52.0); MEAN CORPUSCULAR VOLUME 92 FL (80-99); PLATELET COUNT 233 K/UL (150-450); RED CELL DISTRIBUTION WIDTH 11.2 % (11.6-14.8); WHITE BLOOD COUNT 19.7 K/UL (4.8-10.8)
[2019-07-25 08:56] LABS: ALANINE AMINOTRANSFERASE 31 U/L (12-78); ALBUMIN 2.9 G/DL (3.4-5.0); ALBUMIN/GLOBULIN RATIO 0.7 (1.0-2.7); ALKALINE PHOSPHATASE 39 U/L (46-116); ANION GAP 9 mmol/L (5-15); ASPARTATE AMINO TRANSFERASE 19 U/L (15-37); BILIRUBIN,TOTAL 0.7 MG/DL (0.2-1.0); BLOOD UREA NITROGEN 11 mg/dL (7-18); CALCIUM 8.5 MG/DL (8.5-10.1); CARBON DIOXIDE 24 MMOL/L (21-32); CHLORIDE 105 MMOL/L (98-107); CHOLESTEROL 183 MG/DL (< 200); HDL CHOLESTEROL 59 MG/DL (40-60); POTASSIUM 3.8 MMOL/L (3.5-5.1); SODIUM 138 MMOL/L (136-145); TRIGLYCERIDES 132 MG/DL (30-150)
[2019-07-25 08:58] LABS: AMYLASE 97 U/L (25-115)
[2019-07-25] MEDS: Pantoprazole Inj IV SCH ×2 (10:26→21:08)
[2019-07-25] MEDS: Sucralfate 1gm tab ORAL SCH ×4 (10:26→21:09)
[2019-07-25] MEDS: Heparin 5000 units/ml inj SUBQ SCH ×2 (10:29→21:12)
--- NOTE | 2019-07-25 11:24 | Surgery Progress Note ---
Surgery Progress Note Subjective Additional Comments States he feels mildly better today. No nausea vomiting fever chills. Leukocytosis. Lipase elevated. Otherwise stable. Objective Last 24 Hour Vital Signs Date Time Temp Pulse Resp B/P (MAP) Pulse Ox O2 Delivery O2 Flow Rate FiO2 07/25/19 05:47 78 18 100 Room Air 21 77 18 97 07/25/19 04:00 78 07/25/19 04:00 98.4 78 17 123/74 (90) 94 07/25/19 00:00 98.9 106 19 125/76 (92) 95 07/25/19 00:00 106 07/24/19 21:00 Room Air 07/24/19 20:00 98.7 91 18 120/73 (89) 93 07/24/19 20:00 72 07/24/19 19:30 87 18 97 Room Air 21 07/24/19 16:56 Room Air I&O Intake and Output 07/24/19 07/25/19 19:00 07:00 Intake Total 120 ml 140 ml Balance 120 ml 140 ml Intake Oral 120 ml 140 ml # Voids 2 Cardiovascular: RSR Respiratory: clear Abdomen: soft, flat, tenderness, present bowel sounds, non-distended Extremities: no edema, no tenderness, no cyanosis Laboratory Tests Test 07/24/19 13:15 07/25/19 07:30 07/25/19 07:45 Troponin I 0.000 ng/mL (0.000-0.056) 0.000 ng/mL (0.000-0.056) White Blood Count 19.7 K/UL (4.8-10.8) H Red Blood Count 4.60 M/UL (4.70-6.10) L Hemoglobin 15.0 G/DL (14.2-18.0) Hematocrit 42.4 % (42.0-52.0) Mean Corpuscular Volume 92 FL (80-99) Mean Corpuscular Hemoglobin 32.7 PG (27.0-31.0) H Mean Corpuscular Hemoglobin Concent 35.4 G/DL (32.0-36.0) Red Cell Distribution Width 11.2 % (11.6-14.8) L Platelet Count 233 K/UL (150-450) Mean Platelet Volume 6.4 FL (6.5-10.1) L Neutrophils (%) (Auto) % (45.0-75.0) Lymphocytes (%) (Auto) % (20.0-45.0) Monocytes (%) (Auto) % (1.0-10.0) Eosinophils (%) (Auto) % (0.0-3.0) Basophils (%) (Auto) % (0.0-2.0) Differential Total Cells Counted 100 Neutrophils % (Manual) 87 % (45-75) H Lymphocytes % (Manual) 8 % (20-45) L Monocytes % (Manual) 5 % (1-10) Eosinophils % (Manual) 0 % (0-3) Basophils % (Manual) 0 % (0-2) Band Neutrophils 0 % (0-8) Platelet Estimate Adequate Platelet Morphology Normal Red Blood Cell Morphology Normal Prothrombin Time 11.5 SEC (9.30-11.50) Prothromb Time International Ratio 1.1 (0.9-1.1) Activated Partial Thromboplast Time 35 SEC (23-33) H Sodium Level 138 MMOL/L (136-145) Potassium Level 3.8 MMOL/L (3.5-5.1) Chloride Level 105 MMOL/L (98-107) Carbon Dioxide Level 24 MMOL/L (21-32) Anion Gap 9 mmol/L (5-15) Blood Urea Nitrogen 11 mg/dL (7-18) Creatinine 1.0 MG/DL (0.55-1.30) Estimat Glomerular Filtration Rate > 60 mL/min (>60) Glucose Level 130 MG/DL (74-106) H Calcium Level 8.5 MG/DL (8.5-10.1) Total Bilirubin 0.7 MG/DL (0.2-1.0) Aspartate Amino Transf (AST/SGOT) 19 U/L (15-37) Alanine Aminotransferase (ALT/SGPT) 31 U/L (12-78) Alkaline Phosphatase 39 U/L (46-116) L C-Reactive Protein, Quantitative 24.8 mg/dL (0.00-0.90) H Total Protein 6.9 G/DL (6.4-8.2) Albumin 2.9 G/DL (3.4-5.0) L Globulin 4.0 g/dL Albumin/Globulin Ratio 0.7 (1.0-2.7) L Triglycerides Level 132 MG/DL (30-150) Cholesterol Level 183 MG/DL (< 200) LDL Cholesterol 99 mg/dL (<100) HDL Cholesterol 59 MG/DL (40-60) Cholesterol/HDL Ratio 3.1 (3.3-4.4) L Amylase Level 97 U/L (25-115) Lipase 525 U/L (73-393) H Thyroid Stimulating Hormone (TSH) 0.324 uiU/mL (0.358-3.740) Plan Problems: (1) Abdominal pain Assessment & Plan: 54-year-old male with abdominal pain. Leukocytosis. CT scan with distended gallbladder, inguinal hernia, umbilical hernia, Diverticula Afebrile hemodynamic stable labs as above CT as below States the pain is improved since admission Currently tolerating clear liquids Abdominal ultrasound noted CT noted No acute surgical intervention at this time We will monitor for improvement. If no improvement will proceed with further imaging and potentially surgery if necessary HIDA scan ordered Antibiotics as per infectious disease We will follow with recommendations thank you for allowing participate patient' s care (2) Cholecystitis Assessment & Plan: * Distended gallbladder with wall thickening and mild pericholecystic inflammatory changes concerning for acute cholecystitis. Correlate clinically. Consider further imaging of the gallbladder with ultrasound or HIDA. * Left inguinal hernia containing fat and loop of sigmoid colon. No evidence to suggest associated obstruction. There is some induration of the herniated contents however. Correlate with physical exam to assess for reducibility. * Colonic diverticulosis. Mild stranding noted in the left lower quadrant which may related to the above-described hernia. If there is left lower quadrant pain the possibility of mild diverticulitis cannot be excluded. * Small fat-containing right inguinal hernia and fat-containing umbilical hernia. * Small hemangioma in the right hepatic lobe. Additional findings as above. This corresponds with the preliminary report by [facility]. Shelton Farooq Jul 25, 2019 11:24
[2019-07-25 12:00] VITALS: BP 128/80
--- NOTE | 2019-07-25 13:15 | Cardiology Report ---
APPROVED REPORT EXAM: Two-dimensional and M-mode echocardiogram with Doppler and color Doppler. INDICATION LV function M-Mode DIMENSIONS IVSd1.1 (0.7-1.1cm)Left Atrium (MM)3.3 (1.6-4.0cm) LVDd3.8 (3.5-5.6cm)Aortic Root3.5 (2.0-3.7cm) PWd1.3 (0.7-1.1cm)Aortic Cusp Exc.2.0 (1.5-2.0cm) LVDs2.4 (2.5-4.0cm) PWs1.6 cm Normal left ventricular chamber size, systolic function and wall motion. Left ventricular ejection fraction estimated to be 60-65 %. Borderline left ventricular hypertrophy. No evidence of pericardial effusion. All other cardiac chamber sizes are within normal limits. Mild focal aortic valve sclerosis with adequate cusp excursion. Mildly thickened mitral valve leaflets with normal excursion. Mild mitral annulus and aortic root calcification. Pulmonic valve not well visualized. Normal tricuspid valve structure. IVC at normal size with physiologic collapse. A color flow and spectral Doppler study was performed and revealed: Mild aortic regurgitation. Mild mitral regurgitation. Mitral diastolic velocities suggest mild LV diastolic dysfunction (Grade I ). Trace tricuspid regurgitation. Tricuspid systolic velocities suggests peak right ventricular systolic pressure of 22 mmHg. Pulmonic regurgitation present.
--- NOTE | 2019-07-25 13:59 | Internal Med Progress Note ---
Subjective Date of Service: Jul 25, 2019 Physician Name Issa Singh Attending Physician Wan Triplett MD Current Medications Medications (Trade) Dose Ordered Sig/Mckenzie Route PRN Reason Start Time Stop Time Status Last Admin Dose Admin Acetaminophen (Tylenol) 650 mg Q4H PRN ORAL T>100.5 07/24/19 08:45 08/23/19 08:44 07/25/19 01:48 Albuterol/ Ipratropium (Albuterol/ Ipratropium) 3 ml Q4H PRN HHN Shortness of Breath 07/24/19 08:45 07/29/19 08:44 07/25/19 05:46 Ceftriaxone Sodium 1 gm/ Dextrose 55 ml @ 110 mls/hr Q24H IVPB 07/24/19 22:00 07/31/19 21:59 07/24/19 21:24 Diltiazem HCl (Cardizem) 10 mg EVERY HOUR PRN IV heart rate more than 120BPM 07/24/19 08:45 08/23/19 08:44 Enalaprilat (Vasotec) 2.5 mg Q6H PRN IV sbp more than 160 07/24/19 08:45 08/23/19 08:44 Heparin Sodium (Porcine) (Heparin 5000 units/ml) 5,000 units EVERY 12 HOURS SUBQ 07/24/19 09:00 08/23/19 08:59 07/25/19 10:29 Iohexol (OMNIPAQUE-300 100ml) 100 ml NOW PRN INJ Radiology Procedure 07/24/19 05:00 07/26/19 04:54 Metronidazole (Flagyl) 500 mg Q8HR ORAL 07/24/19 22:00 07/31/19 21:59 07/25/19 05:41 Morphine Sulfate (Morphine Sulfate) 2 mg Q4H PRN IVP Severe Pain (Pain Scale 7-10) 07/24/19 08:45 07/31/19 08:44 Nitroglycerin (Ntg) 0.4 mg Q5MIN X 3 DOSES PRN SL Prn Chest Pain 07/24/19 08:45 08/23/19 08:44 Ondansetron HCl (Zofran) 4 mg Q6H PRN IVP Nausea & Vomiting 07/24/19 08:45 08/23/19 08:44 07/24/19 16:51 Pantoprazole (Protonix) 40 mg Q12HR IV 07/24/19 09:00 08/23/19 08:59 07/25/19 10:26 Polyethylene Glycol (Miralax) 17 gm DAILYPRN PRN ORAL Constipation 07/24/19 08:45 08/23/19 08:44 Sodium Chloride 1,000 ml @ 75 mls/hr [id number] IV 07/24/19 12:00 08/23/19 11:59 07/25/19 01:23 Sucralfate (Carafate) 1 gm FOUR TIMES A DAY ORAL 07/24/19 09:00 08/23/19 08:59 07/25/19 10:26 Temazepam (Restoril) 15 mg HSPRN PRN ORAL Insomnia 07/24/19 21:00 07/31/19 20:59 Allergies: Coded Allergies: No Known Allergies (Unverified , 07/24/19) ROS Limited/Unobtainable: No Constitutional: Reports: no symptoms HEENT: Reports: no symptoms Cardiovascular: Reports: no symptoms Respiratory: Reports: no symptoms Gastrointestinal/Abdominal: Reports: abdominal pain, nausea Genitourinary: Reports: no symptoms Neurologic/Psychiatric: Reports: no symptoms Subjective 54 YO M admitted with epigastric pain. Now acute cholecystitis and cholelithiasis. Cover for Int Steven-Dr Triplett Objective Last Vital Signs Date Time Temp Pulse Resp B/P (MAP) Pulse Ox O2 Delivery O2 Flow Rate FiO2 07/25/19 08:10 85 20 96 Room Air 21 07/25/19 04:00 98.4 123/74 (90) Laboratory Tests Test 07/25/19 07:30 07/25/19 07:45 White Blood Count 19.7 K/UL (4.8-10.8) H Red Blood Count 4.60 M/UL (4.70-6.10) L Hemoglobin 15.0 G/DL (14.2-18.0) Hematocrit 42.4 % (42.0-52.0) Mean Corpuscular Volume 92 FL (80-99) Mean Corpuscular Hemoglobin 32.7 PG (27.0-31.0) H Mean Corpuscular Hemoglobin Concent 35.4 G/DL (32.0-36.0) Red Cell Distribution Width 11.2 % (11.6-14.8) L Platelet Count 233 K/UL (150-450) Mean Platelet Volume 6.4 FL (6.5-10.1) L Neutrophils (%) (Auto) % (45.0-75.0) Lymphocytes (%) (Auto) % (20.0-45.0) Monocytes (%) (Auto) % (1.0-10.0) Eosinophils (%) (Auto) % (0.0-3.0) Basophils (%) (Auto) % (0.0-2.0) Differential Total Cells Counted 100 Neutrophils % (Manual) 87 % (45-75) H Lymphocytes % (Manual) 8 % (20-45) L Monocytes % (Manual) 5 % (1-10) Eosinophils % (Manual) 0 % (0-3) Basophils % (Manual) 0 % (0-2) Band Neutrophils 0 % (0-8) Platelet Estimate Adequate Platelet Morphology Normal Red Blood Cell Morphology Normal Prothrombin Time 11.5 SEC (9.30-11.50) Prothromb Time International Ratio 1.1 (0.9-1.1) Activated Partial Thromboplast Time 35 SEC (23-33) H Sodium Level 138 MMOL/L (136-145) Potassium Level 3.8 MMOL/L (3.5-5.1) Chloride Level 105 MMOL/L (98-107) Carbon Dioxide Level 24 MMOL/L (21-32) Anion Gap 9 mmol/L (5-15) Blood Urea Nitrogen 11 mg/dL (7-18) Creatinine 1.0 MG/DL (0.55-1.30) Estimat Glomerular Filtration Rate > 60 mL/min (>60) Glucose Level 130 MG/DL (74-106) H Calcium Level 8.5 MG/DL (8.5-10.1) Total Bilirubin 0.7 MG/DL (0.2-1.0) Aspartate Amino Transf (AST/SGOT) 19 U/L (15-37) Alanine Aminotransferase (ALT/SGPT) 31 U/L (12-78) Alkaline Phosphatase 39 U/L (46-116) L Troponin I 0.000 ng/mL (0.000-0.056) C-Reactive Protein, Quantitative 24.8 mg/dL (0.00-0.90) H Total Protein 6.9 G/DL (6.4-8.2) Albumin 2.9 G/DL (3.4-5.0) L Globulin 4.0 g/dL Albumin/Globulin Ratio 0.7 (1.0-2.7) L Triglycerides Level 132 MG/DL (30-150) Cholesterol Level 183 MG/DL (< 200) LDL Cholesterol 99 mg/dL (<100) HDL Cholesterol 59 MG/DL (40-60) Cholesterol/HDL Ratio 3.1 (3.3-4.4) L Amylase Level 97 U/L (25-115) Lipase 525 U/L (73-393) H Thyroid Stimulating Hormone (TSH) 0.324 uiU/mL (0.358-3.740) Intake and Output 07/24/19 07/25/19 18:59 06:59 Intake Total 120 ml 140 ml Balance 120 ml 140 ml Intake Oral 120 ml 140 ml # Voids 2 Objective PHYSICAL EXAMINATION: GENERAL: The patient is awake, responsive, no acute distress. HEENT: Head and neck examination, pupils are reactive to light. Extraocular movements intact. NECK: Supple. No JVD. LUNGS: Good air entry. No wheezing or rales. HEART: S1 and S2. Regular rhythm. No murmur or gallops. ABDOMEN: Soft. Tenderness in the epigastric area. No rebound tenderness. No fluid shift. The patient has a hernia on the left side, left groin inguinal area and umbilical hernia was noted. EXTREMITIES: No cyanosis, clubbing, edema NEUROLOGIC: Cranial nerves II through XII grossly normal. Motor is 5/5 in all extremities. Gait is intact. RECTAL: Refused and deferred. GENITOURINARY: Refused and deferred. PSYCHIATRIC: Mood and affect is intact Assessment/Plan Assessment/Plan ASSESSMENT: 1. Abdominal pain, 2. leukocytosis most likely secondary to the 3. acute cholecystitis and cholelithiasis. 4. Left inguinal hernia. 5. Umbilical hernia. PLAN: 1. Admit the patient to monitored floor. 2. tolerating clear liquid diet 3. antibiotics = Rocephin and Flagyl. 4. Code status is Full Code. 5. DVT prophylaxis=Heparin subcutaneous. 6. surgicalconsultation with Dr. Farooq 7. GI consultation with 8. Infectious Disease consultation with Issa Kaminski MD Jul 25, 2019 13:59
--- NOTE | 2019-07-25 15:30 | NUR ---
NURSE NOTES: Patient came to unit by bed in stable condition. Alert and oriented x4. Complain of pain 6/10 on abdomen area. Offered pain medication but want pain medication later. Will continue to monitor. Skin intact and dry. IV dressing intact and dry. Belonging checked. Bed lowest position. Call light within reach. Will continue to monitor.
--- NOTE | 2019-07-25 15:32 | NUR ---
NURSE NOTES: pt transfered to med surg. Aox4,. all belongings were brought to med surge with pt. reviewed belonging sheet with pt. everything is accounted for. building performance specialist taken off from pt. Bed locked and in lowest position, call light within reach.
[2019-07-25 16:00] VITALS: BP 132/83
[2019-07-25] MEDS ORDERED: Enalaprilat 1.25mg/ml Inj IV PRN (16:26)
[2019-07-25] MEDS ORDERED: Miralax 17gm pkt ORAL PRN (16:27)
[2019-07-25] MEDS ORDERED: Nitroglycerin Subl 0.4mg tab SL PRN (16:30)
[2019-07-25] MEDS ORDERED: dilTIAZem HCl 25mg/5ml Inj IV PRN (17:00)
[2019-07-25] MEDS: Albuterol/Ipratropium 3ml neb HHN PRN (17:33)
[2019-07-25] MEDS: Morphine Sulfate 2mg/ml Inj(IV/IM USE ONLY) IVP PRN (18:24)
--- NOTE | 2019-07-25 19:30 | NUR ---
HAND-OFF: Report given to Doreen LOGAN and Dona LOGAN. Patient in stable condition.
--- NOTE | 2019-07-25 19:45 | NUR ---
NURSE NOTES: Received pt in bed A&Ox4. Verbally able to needs known. Breathing on room air. No signs/ symptoms of acute distress noted at this time. IV site on right arm is patent and running NS 75cc/hr. Bed is in the lowest position and locked. Call light within reach. Will continue to monitor the pt.
[2019-07-25 20:00] VITALS: BP 137/91
--- NOTE | 2019-07-25 20:06 | General Progress Note ---
Assessment/Plan Assessment/Plan: Assessment - RUQ pain - abnormal GB imaging, possible cholecystitis - diverticulosis, possible diverticulitis Recommendations - follow exam - antibiotics - surgical f/u Subjective Allergies: Coded Allergies: No Known Allergies (Unverified , 07/24/19) Subjective above note better still with some RUQ pain on clear liquid diet Objective Last 24 Hour Vital Signs Date Time Temp Pulse Resp B/P (MAP) Pulse Ox O2 Delivery O2 Flow Rate FiO2 07/25/19 17:26 70 20 99 Room Air 21 69 20 96 07/25/19 16:00 97.6 75 18 132/83 (99) 96 07/25/19 12:00 97 07/25/19 12:00 99.4 91 18 128/80 (96) 94 07/25/19 09:00 Room Air 07/25/19 08:10 85 20 96 Room Air 21 07/25/19 08:00 98.4 90 19 130/77 (94) 94 07/25/19 08:00 87 07/25/19 05:47 78 18 100 Room Air 21 77 18 97 07/25/19 04:00 78 07/25/19 04:00 98.4 78 17 123/74 (90) 94 07/25/19 00:00 98.9 106 19 125/76 (92) 95 07/25/19 00:00 106 07/24/19 21:00 Room Air Intake and Output 07/24/19 07/25/19 18:59 06:59 Intake Total 120 ml 140 ml Balance 120 ml 140 ml Intake Oral 120 ml 140 ml # Voids 2 Laboratory Tests 07/25/19 07:30: White Blood Count 19.7H, Red Blood Count 4.60L, Hemoglobin 15.0, Hematocrit 42.4 , Mean Corpuscular Volume 92, Mean Corpuscular Hemoglobin 32.7H, Mean Corpuscular Hemoglobin Concent 35.4, Red Cell Distribution Width 11.2L, Platelet Count 233, Mean Platelet Volume 6.4L, Neutrophils (%) (Auto) , Lymphocytes (%) (Auto) , Monocytes (%) (Auto) , Eosinophils (%) (Auto) , Basophils (%) (Auto) , Differential Total Cells Counted 100, Neutrophils % ( Manual) 87H, Lymphocytes % (Manual) 8L, Monocytes % (Manual) 5, Eosinophils % ( Manual) 0, Basophils % (Manual) 0, Band Neutrophils 0, Platelet Estimate Adequate, Platelet Morphology Normal, Red Blood Cell Morphology Normal 07/25/19 07:45: Prothrombin Time 11.5, Prothromb Time International Ratio 1.1, Activated Partial Thromboplast Time 35H, Sodium Level 138, Potassium Level 3.8, Chloride Level 105, Carbon Dioxide Level 24, Anion Gap 9, Blood Urea Nitrogen 11, Creatinine 1.0, Estimat Glomerular Filtration Rate > 60, Glucose Level 130H, Calcium Level 8.5, Total Bilirubin 0.7, Aspartate Amino Transf (AST/SGOT) 19, Alanine Aminotransferase (ALT/SGPT) 31, Alkaline Phosphatase 39L, Troponin I 0.000, C-Reactive Protein, Quantitative 24.8H, Total Protein 6.9, Albumin 2.9L, Globulin 4.0, Albumin/Globulin Ratio 0.7L, Triglycerides Level 132, Cholesterol Level 183, LDL Cholesterol 99, HDL Cholesterol 59, Cholesterol/HDL Ratio 3.1L, Amylase Level 97, Lipase 525H, Thyroid Stimulating Hormone (TSH) 0.324L Height (Feet): 6 Height (Inches): 1.00 Weight (Pounds): 155 Objective WDWN WM NCAT supple CTA RRR abd soft flat, (+) RUQ TTP no edema Madie Ramos MD Jul 25, 2019 20:06
[2019-07-25] MEDS ORDERED: cefTRIAXone 1 GM in D5W 55 ML IVPB SCH (22:00)
[2019-07-26] VITALS (7 sets, daily range): BP systolic 134–150; BP diastolic 82–95
[2019-07-26] MEDS: Morphine Sulfate 2mg/ml Inj(IV/IM USE ONLY) IVP PRN ×6 (00:36→22:18)
[2019-07-26] MEDS ORDERED: Omnipaque-300 100ml vial INJ PRN (05:00)
[2019-07-26] MEDS: metroNIDAZOLE 500mg tab ORAL SCH (05:05)
[2019-07-26 05:48] LABS: HEMATOCRIT 41.7 % (42.0-52.0); HEMOGLOBIN 14.4 G/DL (14.2-18.0); MEAN CORPUSCULAR VOLUME 94 FL (80-99); PLATELET COUNT 240 K/UL (150-450); RED BLOOD COUNT 4.46 M/UL (4.70-6.10); RED CELL DISTRIBUTION WIDTH 11.2 % (11.6-14.8)
[2019-07-26 05:58] LABS: ALANINE AMINOTRANSFERASE 29 U/L (12-78); ALBUMIN 2.8 G/DL (3.4-5.0); ALBUMIN/GLOBULIN RATIO 0.6 (1.0-2.7); ALKALINE PHOSPHATASE 44 U/L (46-116); ANION GAP 10 mmol/L (5-15); ASPARTATE AMINO TRANSFERASE 16 U/L (15-37); BILIRUBIN,TOTAL 0.6 MG/DL (0.2-1.0); BLOOD UREA NITROGEN 10 mg/dL (7-18); CALCIUM 8.3 MG/DL (8.5-10.1); CARBON DIOXIDE 25 MMOL/L (21-32); CHLORIDE 102 MMOL/L (98-107); PHOSPHORUS 2.1 MG/DL (2.5-4.9); POTASSIUM 4.3 MMOL/L (3.5-5.1); SODIUM 137 MMOL/L (136-145)
--- NOTE | 2019-07-26 06:11 | NUR ---
NURSE NOTES: Parisa called from lab at 06:01am regarding WBC,24.0. Called dr carreon and left a message about critical lab. Awaiting for call back.
--- NOTE | 2019-07-26 07:00 | NUR ---
NURSE'S NOTES: CALL BACK RECEIVED FROM DR DAVIES; RELAYED CRITICAL VALUE FOR WBC OF 24.0; PER [facility] RELAY CRITICAL VALUE TO DR. BURRELL AND THAT PATIENT MIGHT NEED SURGERY. NEW ORDERS TO DC IV VASOTEC AND START PATIENT ON CLONIDINE PRN ALSO RECEIVED. DESMOND YUAN AWAITING CALL BACK OF DR. BURRELL
--- NOTE | 2019-07-26 07:06 | NUR ---
NURSE NOTES: Received call back from Dr Triplett regarding WBC 24.0. Dr triplett instructed RN jessica to call Dr Farooq. Left voicemail for dr Farooq. Awaiting for call back.
[2019-07-26 07:14] LABS: AMYLASE 145 U/L (25-115)
--- NOTE | 2019-07-26 07:15 | NUR ---
NURSE NOTES: Noelle Rhoades called and informed that she called for Dr Farooq and she will let Cap[facility] about Pt's information.
--- NOTE | 2019-07-26 07:20 | NUR ---
HAND-OFF: Report given to DESMOND Zhou.
--- NOTE | 2019-07-26 07:50 | NUR ---
NURSE NOTES: AWAKE/ALERT. C/O HEADACHE AND ADOMINAL PAIN. AND NECK PAIN. GIVEN TYLENOL 650MG PO WITH SMALL SIPS OF WATER. O/W ADVICE NPO FOR HIDA SCAN.
[2019-07-26] MEDS: Sucralfate 1gm tab ORAL SCH ×4 (08:44→20:06)
[2019-07-26] MEDS: Pantoprazole Inj IV SCH ×2 (08:44→20:05)
[2019-07-26] MEDS: Heparin 5000 units/ml inj SUBQ SCH ×2 (08:50→20:08)
--- NOTE | 2019-07-26 12:30 | Infectious Diseases Prog Note ---
Assessment/Plan Assessment/Plan Assessment: Abdominal pain- 2ry to Acute cholecystitis -Abd US: Cholelithiasis and positive sonographic Mendenhall's sign suggesting acute cholecystitis. 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 -CT abd/p: Distended gallbladder with wall thickening and mild pericholecystic inflammatory changes concerning for acute cholecystitis. Correlate clinically. Consider further imaging of the gallbladder with ultrasound or HIDA. Left inguinal hernia containing fat and loop of sigmoid colon. No evidence to suggest associated obstruction. There is some induration of the herniated contents however. Correlate with physical exam to assess for reducibility.Colonic diverticulosis. Mild stranding noted in the left lower quadrant which may related to the above-described hernia. If there is left lower quadrant pain the possibility of mild diverticulitis cannot be excluded. Small fat-containing right inguinal hernia and fat-containing umbilical hernia. Small hemangioma in the right hepatic lobe. Low grade fever x1 Leukocytosis; increased -CXR: no acute disease -u/a neg Plan: -Switch IV Ceftriaxone and Flagyl #3 back to Zosyn given increased leukocytosis -07/24 SP ZOsyn #1 -f/u cx -Monitor CBC/CMP, temperatures -Sx, GI f/u Thank you for this consultation. Will continue to follow along with you. Discussed with RN Subjective Allergies: Coded Allergies: No Known Allergies (Unverified , 07/24/19) Subjective Tm 100.9 wbc increased Objective Vital Signs Last 24 Hour Vital Signs Date Time Temp Pulse Resp B/P (MAP) Pulse Ox O2 Delivery O2 Flow Rate FiO2 07/26/19 12:00 99.2 77 20 134/86 (102) 96 07/26/19 09:27 98.1 07/26/19 09:00 Room Air 07/26/19 08:18 98.1 07/26/19 08:00 98.9 81 20 136/95 (109) 93 07/26/19 07:24 82 20 97 Room Air 21 07/26/19 04:00 98.1 84 18 150/88 (108) 97 07/26/19 00:00 98.3 88 18 141/82 (101) 98 07/25/19 21:00 Room Air 07/25/19 20:10 80 18 98 Room Air 21 07/25/19 20:00 100.8 81 20 137/91 (106) 98 07/25/19 17:26 70 20 99 Room Air 21 69 20 96 07/25/19 16:00 97.6 75 18 132/83 (99) 96 Height (Feet): 6 Height (Inches): 1.00 Weight (Pounds): 155 Objective General Appearance: WD/WN, no apparent distress Lines, tubes and drains: peripheral HEENT: normocephalic, atraumatic, anicteric Neck: non-tender, normal alignment Respiratory/Chest: chest wall non-tender, lungs clear Cardiovascular/Chest: normal peripheral pulses Abdomen: normal bowel sounds Laboratory Tests Test 07/26/19 04:20 White Blood Count 24.0 K/UL (4.8-10.8) *H Red Blood Count 4.46 M/UL (4.70-6.10) L Hemoglobin 14.4 G/DL (14.2-18.0) Hematocrit 41.7 % (42.0-52.0) L Mean Corpuscular Volume 94 FL (80-99) Mean Corpuscular Hemoglobin 32.2 PG (27.0-31.0) H Mean Corpuscular Hemoglobin Concent 34.4 G/DL (32.0-36.0) Red Cell Distribution Width 11.2 % (11.6-14.8) L Platelet Count 240 K/UL (150-450) Mean Platelet Volume 6.2 FL (6.5-10.1) L Neutrophils (%) (Auto) % (45.0-75.0) Lymphocytes (%) (Auto) % (20.0-45.0) Monocytes (%) (Auto) % (1.0-10.0) Eosinophils (%) (Auto) % (0.0-3.0) Basophils (%) (Auto) % (0.0-2.0) Differential Total Cells Counted 100 Neutrophils % (Manual) 89 % (45-75) H Lymphocytes % (Manual) 5 % (20-45) L Monocytes % (Manual) 6 % (1-10) Eosinophils % (Manual) 0 % (0-3) Basophils % (Manual) 0 % (0-2) Band Neutrophils 0 % (0-8) Platelet Estimate Adequate Platelet Morphology Normal Red Blood Cell Morphology Normal Erythrocyte Sedimentation Rate 85 MM/HR (0-20) H Sodium Level 137 MMOL/L (136-145) Potassium Level 4.3 MMOL/L (3.5-5.1) Chloride Level 102 MMOL/L (98-107) Carbon Dioxide Level 25 MMOL/L (21-32) Anion Gap 10 mmol/L (5-15) Blood Urea Nitrogen 10 mg/dL (7-18) Creatinine 1.0 MG/DL (0.55-1.30) Estimat Glomerular Filtration Rate > 60 mL/min (>60) Glucose Level 127 MG/DL (74-106) H Calcium Level 8.3 MG/DL (8.5-10.1) L Phosphorus Level 2.1 MG/DL (2.5-4.9) L Magnesium Level 1.9 MG/DL (1.8-2.4) Total Bilirubin 0.6 MG/DL (0.2-1.0) Aspartate Amino Transf (AST/SGOT) 16 U/L (15-37) Alanine Aminotransferase (ALT/SGPT) 29 U/L (12-78) Alkaline Phosphatase 44 U/L (46-116) L Troponin I 0.000 ng/mL (0.000-0.056) C-Reactive Protein, Quantitative 32.8 mg/dL (0.00-0.90) H Total Protein 7.2 G/DL (6.4-8.2) Albumin 2.8 G/DL (3.4-5.0) L Globulin 4.4 g/dL Albumin/Globulin Ratio 0.6 (1.0-2.7) L Amylase Level 145 U/L (25-115) H Lipase 675 U/L (73-393) H Current Medications Medications (Trade) Dose Ordered Sig/Mckenzie Route PRN Reason Start Time Stop Time Status Last Admin Dose Admin Acetaminophen (Tylenol) 650 mg Q4H PRN ORAL T>100.5 07/25/19 16:26 08/24/19 16:25 07/26/19 12:06 Albuterol/ Ipratropium (Albuterol/ Ipratropium) 3 ml Q4H PRN HHN Shortness of Breath 07/25/19 16:26 07/30/19 16:25 07/25/19 17:33 Ceftriaxone Sodium 1 gm/ Dextrose 55 ml @ 110 mls/hr Q24H IVPB 07/25/19 22:00 07/31/19 21:59 07/25/19 21:11 Clonidine HCl (Catapres Tab) 0.1 mg Q4H PRN ORAL SBP > 160 07/26/19 07:00 08/25/19 06:59 Heparin Sodium (Porcine) (Heparin 5000 units/ml) 5,000 units EVERY 12 HOURS SUBQ 07/25/19 21:00 08/23/19 08:59 07/26/19 08:50 Metronidazole (Flagyl) 500 mg Q8HR ORAL 07/25/19 22:00 07/31/19 21:59 07/26/19 05:05 Morphine Sulfate (Morphine Sulfate) 2 mg Q4H PRN IVP Severe Pain (Pain Scale 7-10) 07/25/19 16:45 07/31/19 08:44 07/26/19 08:57 Nitroglycerin (Ntg) 0.4 mg Q5MIN X 3 DOSES PRN SL Prn Chest Pain 07/25/19 16:30 08/23/19 08:44 Ondansetron HCl (Zofran) 4 mg Q6H PRN IVP Nausea & Vomiting 07/25/19 16:27 08/24/19 16:26 07/25/19 21:28 Pantoprazole (Protonix) 40 mg Q12HR IV 07/25/19 21:00 08/23/19 08:59 07/26/19 08:44 Polyethylene Glycol (Miralax) 17 gm DAILYPRN PRN ORAL Constipation 07/25/19 16:27 08/24/19 16:26 Sodium Chloride 1,000 ml @ 75 mls/hr [id number] IV 07/25/19 16:26 08/24/19 16:25 07/26/19 05:07 Sucralfate (Carafate) 1 gm FOUR TIMES A DAY ORAL 07/25/19 18:00 08/23/19 08:59 07/26/19 08:44 Temazepam (Restoril) 15 mg HSPRN PRN ORAL Insomnia 07/25/19 21:00 07/31/19 20:59 Georgina Fields M.D. Jul 26, 2019 12:30
[2019-07-26] MEDS: Piperacillin/Tazobactam 3.375 GM in NS 110 ML IVPB SCH ×2 (13:57→22:18)
--- NOTE | 2019-07-26 14:47 | Internal Med Progress Note ---
Subjective Date of Service: Jul 26, 2019 Physician Name Issa Singh Attending Physician Wan Triplett MD Current Medications Medications (Trade) Dose Ordered Sig/Mckenzie Route PRN Reason Start Time Stop Time Status Last Admin Dose Admin Acetaminophen (Tylenol) 650 mg Q4H PRN ORAL T>100.5 07/25/19 16:26 08/24/19 16:25 07/26/19 12:06 Albuterol/ Ipratropium (Albuterol/ Ipratropium) 3 ml Q4H PRN HHN Shortness of Breath 07/25/19 16:26 07/30/19 16:25 07/25/19 17:33 Clonidine HCl (Catapres Tab) 0.1 mg Q4H PRN ORAL SBP > 160 07/26/19 07:00 08/25/19 06:59 Heparin Sodium (Porcine) (Heparin 5000 units/ml) 5,000 units EVERY 12 HOURS SUBQ 07/25/19 21:00 08/23/19 08:59 07/26/19 08:50 Morphine Sulfate (Morphine Sulfate) 2 mg Q4H PRN IVP Severe Pain (Pain Scale 7-10) 07/25/19 16:45 07/31/19 08:44 07/26/19 14:03 Nitroglycerin (Ntg) 0.4 mg Q5MIN X 3 DOSES PRN SL Prn Chest Pain 07/25/19 16:30 08/23/19 08:44 Ondansetron HCl (Zofran) 4 mg Q6H PRN IVP Nausea & Vomiting 07/25/19 16:27 08/24/19 16:26 07/25/19 21:28 Pantoprazole (Protonix) 40 mg Q12HR IV 07/25/19 21:00 08/23/19 08:59 07/26/19 08:44 Piperacillin Sod/ Tazobactam Sod 3.375 gm/Sodium Chloride 110 ml @ 27.5 mls/hr EVERY 8 HOURS IVPB 07/26/19 14:00 07/31/19 13:59 07/26/19 13:57 Polyethylene Glycol (Miralax) 17 gm DAILYPRN PRN ORAL Constipation 07/25/19 16:27 08/24/19 16:26 Sodium Chloride 1,000 ml @ 75 mls/hr [id number] IV 07/25/19 16:26 11/18/19 16:25 07/26/19 05:07 Sucralfate (Carafate) 1 gm FOUR TIMES A DAY ORAL 07/25/19 18:00 08/23/19 08:59 07/26/19 13:09 Temazepam (Restoril) 15 mg HSPRN PRN ORAL Insomnia 07/25/19 21:00 07/31/19 20:59 Allergies: Coded Allergies: No Known Allergies (Unverified , 07/24/19) ROS Limited/Unobtainable: No Constitutional: Reports: no symptoms HEENT: Reports: no symptoms Cardiovascular: Reports: no symptoms Respiratory: Reports: no symptoms Gastrointestinal/Abdominal: Reports: abdominal pain, nausea Genitourinary: Reports: no symptoms Subjective 54 YO M admitted with epigastric pain. Now acute cholecystitis and cholelithiasis. Cover for Int Med-Dr Triplett Objective Last Vital Signs Date Time Temp Pulse Resp B/P (MAP) Pulse Ox O2 Delivery O2 Flow Rate FiO2 07/26/19 14:34 98.1 07/26/19 12:00 77 20 134/86 (102) 96 07/26/19 09:00 Room Air 07/26/19 07:24 21 Laboratory Tests Test 07/26/19 04:20 White Blood Count 24.0 K/UL (4.8-10.8) *H Red Blood Count 4.46 M/UL (4.70-6.10) L Hemoglobin 14.4 G/DL (14.2-18.0) Hematocrit 41.7 % (42.0-52.0) L Mean Corpuscular Volume 94 FL (80-99) Mean Corpuscular Hemoglobin 32.2 PG (27.0-31.0) H Mean Corpuscular Hemoglobin Concent 34.4 G/DL (32.0-36.0) Red Cell Distribution Width 11.2 % (11.6-14.8) L Platelet Count 240 K/UL (150-450) Mean Platelet Volume 6.2 FL (6.5-10.1) L Neutrophils (%) (Auto) % (45.0-75.0) Lymphocytes (%) (Auto) % (20.0-45.0) Monocytes (%) (Auto) % (1.0-10.0) Eosinophils (%) (Auto) % (0.0-3.0) Basophils (%) (Auto) % (0.0-2.0) Differential Total Cells Counted 100 Neutrophils % (Manual) 89 % (45-75) H Lymphocytes % (Manual) 5 % (20-45) L Monocytes % (Manual) 6 % (1-10) Eosinophils % (Manual) 0 % (0-3) Basophils % (Manual) 0 % (0-2) Band Neutrophils 0 % (0-8) Platelet Estimate Adequate Platelet Morphology Normal Red Blood Cell Morphology Normal Erythrocyte Sedimentation Rate 85 MM/HR (0-20) H Sodium Level 137 MMOL/L (136-145) Potassium Level 4.3 MMOL/L (3.5-5.1) Chloride Level 102 MMOL/L (98-107) Carbon Dioxide Level 25 MMOL/L (21-32) Anion Gap 10 mmol/L (5-15) Blood Urea Nitrogen 10 mg/dL (7-18) Creatinine 1.0 MG/DL (0.55-1.30) Estimat Glomerular Filtration Rate > 60 mL/min (>60) Glucose Level 127 MG/DL (74-106) H Calcium Level 8.3 MG/DL (8.5-10.1) L Phosphorus Level 2.1 MG/DL (2.5-4.9) L Magnesium Level 1.9 MG/DL (1.8-2.4) Total Bilirubin 0.6 MG/DL (0.2-1.0) Aspartate Amino Transf (AST/SGOT) 16 U/L (15-37) Alanine Aminotransferase (ALT/SGPT) 29 U/L (12-78) Alkaline Phosphatase 44 U/L (46-116) L Troponin I 0.000 ng/mL (0.000-0.056) C-Reactive Protein, Quantitative 32.8 mg/dL (0.00-0.90) H Total Protein 7.2 G/DL (6.4-8.2) Albumin 2.8 G/DL (3.4-5.0) L Globulin 4.4 g/dL Albumin/Globulin Ratio 0.6 (1.0-2.7) L Amylase Level 145 U/L (25-115) H Lipase 675 U/L (73-393) H Intake and Output 07/25/19 07/26/19 19:00 07:00 Intake Total 300 ml 1272.50 ml Balance 300 ml 1272.50 ml Intake Oral 300 ml 300 ml IV Total 972.50 ml # Voids 2 2 Objective PHYSICAL EXAMINATION: GENERAL: The patient is awake, responsive, no acute distress. HEENT: Head and neck examination, pupils are reactive to light. Extraocular movements intact. NECK: Supple. No JVD. LUNGS: Good air entry. No wheezing or rales. HEART: S1 and S2. Regular rhythm. No murmur or gallops. ABDOMEN: Soft. Tenderness in the epigastric area. No rebound tenderness. No fluid shift. The patient has a hernia on the left side, left groin inguinal area and umbilical hernia was noted. EXTREMITIES: No cyanosis, clubbing, edema NEUROLOGIC: Cranial nerves II through XII grossly normal. Motor is 5/5 in all extremities. Gait is intact. RECTAL: Refused and deferred. GENITOURINARY: Refused and deferred. PSYCHIATRIC: Mood and affect is intact Assessment/Plan Assessment/Plan ASSESSMENT: 1. Abdominal pain, 2. leukocytosis 3. acute cholecystitis and cholelithiasis. 4. Left inguinal hernia. 5. Umbilical hernia. PLAN: 1. Admit the patient to monitored floor. 2. tolerating clear liquid diet 3. antibiotics = zosyn; D/C Rocephin and Flagyl. 4. Code status is Full Code. 5. DVT prophylaxis=Heparin subcutaneous. 6. surgicalconsultation with Dr. Farooq; may require surgery-see note 7. GI consultation with 8. Infectious Disease consultation with Issa Kaminski MD Jul 26, 2019 14:47
[2019-07-26] MEDS ORDERED: Tubing IV Secondary IV ONE (15:44)
[2019-07-26] MEDS ORDERED: NS 275ml ONE (15:44)
--- NOTE | 2019-07-26 15:59 | Pre-Procedure Note/Attestation ---
Pre-Procedure Note/Attestation Complete Prior to Procedure Planned Procedure: not applicable Procedure Narrative: laparoscopic cholecystectomy possible open Indications for Procedure Pre-Operative Diagnosis: acute cholecystitis; gallstone pancreatitis Attestation I attest that I discussed the nature of the procedure; its benefits; risks and complications; and alternatives (and the risks and benefits of such alternatives ), prior to the procedure, with the patient (or the patient's legal welding equipment sales representative). I attest that, if there was a reasonable possibility of needing a blood transfusion, the patient (or the patient's legal welding equipment sales representative) was given the [facility] standardized written summary, pursuant to the [place] Blood Safety Act ([place] Health and Safety Code # 1645, as amended). I attest that I re-evaluated the patient just prior to the surgery and that there has been no change in the patient's H&P, except as documented below: Shelton Farooq Jul 26, 2019 15:59
--- NOTE | 2019-07-26 16:01 | Surgery Progress Note ---
Surgery Progress Note Subjective Symptoms: pain same, tolerating diet, voiding well, passing flatus Additional Comments worsening leukocytosis lip/saulo elevated still with RUQ pain Objective Last 24 Hour Vital Signs Date Time Temp Pulse Resp B/P (MAP) Pulse Ox O2 Delivery O2 Flow Rate FiO2 07/26/19 14:34 98.1 07/26/19 12:36 98.1 07/26/19 12:00 99.2 77 20 134/86 (102) 96 07/26/19 09:00 Room Air 07/26/19 08:00 98.9 81 20 136/95 (109) 93 07/26/19 07:24 82 20 97 Room Air 21 07/26/19 04:00 98.1 84 18 150/88 (108) 97 07/26/19 00:00 98.3 88 18 141/82 (101) 98 07/25/19 21:00 Room Air 07/25/19 20:10 80 18 98 Room Air 21 07/25/19 20:00 100.8 81 20 137/91 (106) 98 07/25/19 17:26 70 20 99 Room Air 21 69 20 96 I&O Intake and Output 07/25/19 07/26/19 19:00 07:00 Intake Total 300 ml 1272.50 ml Balance 300 ml 1272.50 ml Intake Oral 300 ml 300 ml IV Total 972.50 ml # Voids 2 2 Cardiovascular: RSR Respiratory: clear Abdomen: soft, tenderness, present bowel sounds, non-distended Extremities: no tenderness, no cyanosis Laboratory Tests Test 07/26/19 04:20 White Blood Count 24.0 K/UL (4.8-10.8) *H Red Blood Count 4.46 M/UL (4.70-6.10) L Hemoglobin 14.4 G/DL (14.2-18.0) Hematocrit 41.7 % (42.0-52.0) L Mean Corpuscular Volume 94 FL (80-99) Mean Corpuscular Hemoglobin 32.2 PG (27.0-31.0) H Mean Corpuscular Hemoglobin Concent 34.4 G/DL (32.0-36.0) Red Cell Distribution Width 11.2 % (11.6-14.8) L Platelet Count 240 K/UL (150-450) Mean Platelet Volume 6.2 FL (6.5-10.1) L Neutrophils (%) (Auto) % (45.0-75.0) Lymphocytes (%) (Auto) % (20.0-45.0) Monocytes (%) (Auto) % (1.0-10.0) Eosinophils (%) (Auto) % (0.0-3.0) Basophils (%) (Auto) % (0.0-2.0) Differential Total Cells Counted 100 Neutrophils % (Manual) 89 % (45-75) H Lymphocytes % (Manual) 5 % (20-45) L Monocytes % (Manual) 6 % (1-10) Eosinophils % (Manual) 0 % (0-3) Basophils % (Manual) 0 % (0-2) Band Neutrophils 0 % (0-8) Platelet Estimate Adequate Platelet Morphology Normal Red Blood Cell Morphology Normal Erythrocyte Sedimentation Rate 85 MM/HR (0-20) H Sodium Level 137 MMOL/L (136-145) Potassium Level 4.3 MMOL/L (3.5-5.1) Chloride Level 102 MMOL/L (98-107) Carbon Dioxide Level 25 MMOL/L (21-32) Anion Gap 10 mmol/L (5-15) Blood Urea Nitrogen 10 mg/dL (7-18) Creatinine 1.0 MG/DL (0.55-1.30) Estimat Glomerular Filtration Rate > 60 mL/min (>60) Glucose Level 127 MG/DL (74-106) H Calcium Level 8.3 MG/DL (8.5-10.1) L Phosphorus Level 2.1 MG/DL (2.5-4.9) L Magnesium Level 1.9 MG/DL (1.8-2.4) Total Bilirubin 0.6 MG/DL (0.2-1.0) Aspartate Amino Transf (AST/SGOT) 16 U/L (15-37) Alanine Aminotransferase (ALT/SGPT) 29 U/L (12-78) Alkaline Phosphatase 44 U/L (46-116) L Troponin I 0.000 ng/mL (0.000-0.056) C-Reactive Protein, Quantitative 32.8 mg/dL (0.00-0.90) H Total Protein 7.2 G/DL (6.4-8.2) Albumin 2.8 G/DL (3.4-5.0) L Globulin 4.4 g/dL Albumin/Globulin Ratio 0.6 (1.0-2.7) L Amylase Level 145 U/L (25-115) H Lipase 675 U/L (73-393) H Plan Problems: (1) Abdominal pain Assessment & Plan: 54-year-old male with abdominal pain. Leukocytosis. CT scan with distended gallbladder, inguinal hernia, umbilical hernia, Diverticula Afebrile hemodynamic stable labs as above CT as below States the pain is improved since admission Currently tolerating clear liquids Abdominal ultrasound noted CT noted No acute surgical intervention at this time We will monitor for improvement. If no improvement will proceed with further imaging and potentially surgery if necessary HIDA scan ordered Antibiotics as per infectious disease We will follow with recommendations thank you for allowing participate patient' s care (2) Cholecystitis Assessment & Plan: * Distended gallbladder with wall thickening and mild pericholecystic inflammatory changes concerning for acute cholecystitis. Correlate clinically. Consider further imaging of the gallbladder with ultrasound or HIDA. * Left inguinal hernia containing fat and loop of sigmoid colon. No evidence to suggest associated obstruction. There is some induration of the herniated contents however. Correlate with physical exam to assess for reducibility. * Colonic diverticulosis. Mild stranding noted in the left lower quadrant which may related to the above-described hernia. If there is left lower quadrant pain the possibility of mild diverticulitis cannot be excluded. * Small fat-containing right inguinal hernia and fat-containing umbilical hernia. * Small hemangioma in the right hepatic lobe. Additional findings as above. This corresponds with the preliminary report by [facility]. Additional Comments gallstone pancreatitis acute [place] [place] worsening wbc npo p mn iv fluids iv abx plan for OR if not improved soon Shelton Farooq Jul 26, 2019 16:01
--- NOTE | 2019-07-26 18:30 | General Progress Note ---
Assessment/Plan Assessment/Plan: Assessment - RUQ pain - abnormal GB imaging, possible cholecystitis - diverticulosis, possible diverticulitis Recommendations - follow exam - antibiotics - surgical f/u Subjective Allergies: Coded Allergies: No Known Allergies (Unverified , 07/24/19) Subjective above note still with RUQ pain on clear liquid diet Objective Last 24 Hour Vital Signs Date Time Temp Pulse Resp B/P (MAP) Pulse Ox O2 Delivery O2 Flow Rate FiO2 07/26/19 16:00 97.7 83 20 136/82 (100) 95 07/26/19 14:34 98.1 07/26/19 12:36 98.1 07/26/19 12:00 99.2 77 20 134/86 (102) 96 07/26/19 09:00 Room Air 07/26/19 08:00 98.9 81 20 136/95 (109) 93 07/26/19 07:24 82 20 97 Room Air 21 07/26/19 04:00 98.1 84 18 150/88 (108) 97 07/26/19 00:00 98.3 88 18 141/82 (101) 98 07/25/19 21:00 Room Air 07/25/19 20:10 80 18 98 Room Air 21 07/25/19 20:00 100.8 81 20 137/91 (106) 98 Intake and Output 07/25/19 07/26/19 18:59 06:59 Intake Total 300 ml 1197.50 ml Balance 300 ml 1197.50 ml Intake Oral 300 ml 300 ml IV Total 897.50 ml # Voids 2 2 Laboratory Tests 07/26/19 04:20: White Blood Count 24.0*H, Red Blood Count 4.46L, Hemoglobin 14.4, Hematocrit 41.7L, Mean Corpuscular Volume 94, Mean Corpuscular Hemoglobin 32.2H, Mean Corpuscular Hemoglobin Concent 34.4, Red Cell Distribution Width 11.2L, Platelet Count 240, Mean Platelet Volume 6.2L, Neutrophils (%) (Auto) , Lymphocytes (%) (Auto) , Monocytes (%) (Auto) , Eosinophils (%) (Auto) , Basophils (%) (Auto) , Differential Total Cells Counted 100, Neutrophils % ( Manual) 89H, Lymphocytes % (Manual) 5L, Monocytes % (Manual) 6, Eosinophils % ( Manual) 0, Basophils % (Manual) 0, Band Neutrophils 0, Platelet Estimate Adequate, Platelet Morphology Normal, Red Blood Cell Morphology Normal, Erythrocyte Sedimentation Rate 85H, Sodium Level 137, Potassium Level 4.3, Chloride Level 102, Carbon Dioxide Level 25, Anion Gap 10, Blood Urea Nitrogen 10, Creatinine 1.0, Estimat Glomerular Filtration Rate > 60, Glucose Level 127H , Calcium Level 8.3L, Phosphorus Level 2.1L, Magnesium Level 1.9, Total Bilirubin 0.6, Aspartate Amino Transf (AST/SGOT) 16, Alanine Aminotransferase ( ALT/SGPT) 29, Alkaline Phosphatase 44L, Troponin I 0.000, C-Reactive Protein, Quantitative 32.8H, Total Protein 7.2, Albumin 2.8L, Globulin 4.4, Albumin/ Globulin Ratio 0.6L, Amylase Level 145H, Lipase 675H Height (Feet): 6 Height (Inches): 1.00 Weight (Pounds): 155 Objective WDWN WM NCAT supple CTA RRR abd soft flat, (+) RUQ TTP no edema Madie Ramos MD Jul 26, 2019 18:30
--- NOTE | 2019-07-26 18:56 | NUR ---
NURSE NOTES: RESTING IN NO ACUTE DISTRESS.
--- NOTE | 2019-07-26 19:32 | NUR ---
HAND-OFF: Report given to Marciano MARTIN RN.
--- NOTE | 2019-07-26 19:45 | NUR ---
NURSE NOTES: Received report from DESMOND Zhou. Patient is resting in bed. Fluids running to right forearm IV 75ml/hr. No c/o pain or SOB on room air at this present time. Bed in low and locked position, call light within reach.
[2019-07-27] VITALS: BP 121/73
[2019-07-27] MEDS: Morphine Sulfate 2mg/ml Inj(IV/IM USE ONLY) IVP PRN ×4 (02:52→21:32)
[2019-07-27 04:00] VITALS: BP 123/75
[2019-07-27] MEDS: Piperacillin/Tazobactam 3.375 GM in NS 110 ML IVPB SCH ×3 (05:01→22:01)
--- NOTE | 2019-07-27 07:14 | NUR ---
HAND-OFF: Report given to DESMOND Alvarez. Patient in stable condition.
--- NOTE | 2019-07-27 07:28 | NUR ---
NURSE NOTES: Pt in bed complaining of neck pain , warm pack offered. Pt states that he feels the pain is related to not eating. Has possible surgery today. Pt is NPO AO x 4 . N0 verbalizations of abdominal pain at this time.
[2019-07-27 07:56] LABS: HEMATOCRIT 40.3 % (42.0-52.0); HEMOGLOBIN 14.2 G/DL (14.2-18.0); MEAN CORPUSCULAR VOLUME 93 FL (80-99); PLATELET COUNT 239 K/UL (150-450); RED BLOOD COUNT 4.36 M/UL (4.70-6.10); RED CELL DISTRIBUTION WIDTH 10.3 % (11.6-14.8); WHITE BLOOD COUNT 19.1 K/UL (4.8-10.8)
[2019-07-27 08:00] LABS: INR 0.9 (0.9-1.1)
[2019-07-27 08:14] LABS: ALANINE AMINOTRANSFERASE 24 U/L (12-78); ALBUMIN 2.5 G/DL (3.4-5.0); ALBUMIN/GLOBULIN RATIO 0.5 (1.0-2.7); ALKALINE PHOSPHATASE 49 U/L (46-116); ANION GAP 10 mmol/L (5-15); ASPARTATE AMINO TRANSFERASE 14 U/L (15-37); BILIRUBIN,TOTAL 0.8 MG/DL (0.2-1.0); BLOOD UREA NITROGEN 12 mg/dL (7-18); CALCIUM 8.3 MG/DL (8.5-10.1); CARBON DIOXIDE 26 MMOL/L (21-32); CHLORIDE 101 MMOL/L (98-107); SODIUM 137 MMOL/L (136-145)
[2019-07-27] MEDS: Sucralfate 1gm tab ORAL SCH ×4 (09:00→21:02)
[2019-07-27] MEDS: Heparin 5000 units/ml inj SUBQ SCH ×2 (09:00→21:02)
[2019-07-27] MEDS: Pantoprazole Inj IV SCH ×2 (09:00→21:02)
--- NOTE | 2019-07-27 11:52 | Cardiology Report ---
APPROVED REPORT EKG Measurement Heart [id number] Sinus bradycardia with sinus arrhythmia Nonspecific ST abnormality Abnormal ECG
--- NOTE | 2019-07-27 11:53 | Cardiology Report ---
APPROVED REPORT EKG Measurement Heart [id number] CT [id number] Normal sinus rhythm with sinus arrhythmia Abnormal ECG
[2019-07-27 12:00] VITALS: BP 131/70
--- NOTE | 2019-07-27 12:00 | NUR ---
NM Hepatobiliary (HIDA) scan complete.
--- NOTE | 2019-07-27 12:12 | Infectious Diseases Prog Note ---
Assessment/Plan Assessment/Plan Assessment: Abdominal pain- 2ry to Acute cholecystitis Gallstone pancreatitis -Abd US: Cholelithiasis and positive sonographic Mendenhall's sign suggesting acute cholecystitis. 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 -CT abd/p: Distended gallbladder with wall thickening and mild pericholecystic inflammatory changes concerning for acute cholecystitis. Correlate clinically. Consider further imaging of the gallbladder with ultrasound or HIDA. Left inguinal hernia containing fat and loop of sigmoid colon. No evidence to suggest associated obstruction. There is some induration of the herniated contents however. Correlate with physical exam to assess for reducibility.Colonic diverticulosis. Mild stranding noted in the left lower quadrant which may related to the above-described hernia. If there is left lower quadrant pain the possibility of mild diverticulitis cannot be excluded. Small fat-containing right inguinal hernia and fat-containing umbilical hernia. Small hemangioma in the right hepatic lobe. Low grade fever Leukocytosis; increased -CXR: no acute disease -u/a neg Plan: -Continue Zosyn #2 given increased leukocytosis -07/26 SP Ceftriaxone, Flagyl #3 -07/24 SP ZOsyn #1 -f/u cx -Monitor CBC/CMP, temperatures -Sx, GI f/u Thank you for this consultation. Will continue to follow along with you. Discussed with RN Subjective Allergies: Coded Allergies: No Known Allergies (Unverified , 07/24/19) Subjective Tm 100.8 wbc improved Objective Vital Signs Last 24 Hour Vital Signs Date Time Temp Pulse Resp B/P (MAP) Pulse Ox O2 Delivery O2 Flow Rate FiO2 07/27/19 04:00 99.3 86 16 123/75 (91) 97 07/27/19 00:00 98.9 89 18 121/73 (89) 95 07/26/19 21:00 Room Air 07/26/19 20:13 100.8 86 19 142/88 (106) 07/26/19 20:00 84 18 95 Room Air 21 07/26/19 20:00 100.8 86 19 142/88 (106) 95 07/26/19 18:36 97.7 07/26/19 16:00 97.7 83 20 136/82 (100) 95 07/26/19 12:36 98.1 Height (Feet): 6 Height (Inches): 1.00 Weight (Pounds): 155 Objective General Appearance: WD/WN, no apparent distress Lines, tubes and drains: peripheral HEENT: normocephalic, atraumatic, anicteric Neck: non-tender, normal alignment Respiratory/Chest: chest wall non-tender, lungs clear Cardiovascular/Chest: normal peripheral pulses Abdomen: normal bowel sounds Laboratory Tests Test 07/27/19 07:21 White Blood Count 19.1 K/UL (4.8-10.8) H Red Blood Count 4.36 M/UL (4.70-6.10) L Hemoglobin 14.2 G/DL (14.2-18.0) Hematocrit 40.3 % (42.0-52.0) L Mean Corpuscular Volume 93 FL (80-99) Mean Corpuscular Hemoglobin 32.5 PG (27.0-31.0) H Mean Corpuscular Hemoglobin Concent 35.1 G/DL (32.0-36.0) Red Cell Distribution Width 10.3 % (11.6-14.8) L Platelet Count 239 K/UL (150-450) Mean Platelet Volume 6.2 FL (6.5-10.1) L Neutrophils (%) (Auto) % (45.0-75.0) Lymphocytes (%) (Auto) % (20.0-45.0) Monocytes (%) (Auto) % (1.0-10.0) Eosinophils (%) (Auto) % (0.0-3.0) Basophils (%) (Auto) % (0.0-2.0) Differential Total Cells Counted 100 Neutrophils % (Manual) 89 % (45-75) H Lymphocytes % (Manual) 5 % (20-45) L Monocytes % (Manual) 6 % (1-10) Eosinophils % (Manual) 0 % (0-3) Basophils % (Manual) 0 % (0-2) Band Neutrophils 0 % (0-8) Platelet Estimate Adequate Platelet Morphology Normal Red Blood Cell Morphology Normal Prothrombin Time 10.0 SEC (9.30-11.50) Prothromb Time International Ratio 0.9 (0.9-1.1) Activated Partial Thromboplast Time 34 SEC (23-33) H Sodium Level 137 MMOL/L (136-145) Potassium Level 4.0 MMOL/L (3.5-5.1) Chloride Level 101 MMOL/L (98-107) Carbon Dioxide Level 26 MMOL/L (21-32) Anion Gap 10 mmol/L (5-15) Blood Urea Nitrogen 12 mg/dL (7-18) Creatinine 1.0 MG/DL (0.55-1.30) Estimat Glomerular Filtration Rate > 60 mL/min (>60) Glucose Level 108 MG/DL (74-106) H Calcium Level 8.3 MG/DL (8.5-10.1) L Total Bilirubin 0.8 MG/DL (0.2-1.0) Aspartate Amino Transf (AST/SGOT) 14 U/L (15-37) L Alanine Aminotransferase (ALT/SGPT) 24 U/L (12-78) Alkaline Phosphatase 49 U/L (46-116) Total Protein 7.1 G/DL (6.4-8.2) Albumin 2.5 G/DL (3.4-5.0) L Globulin 4.6 g/dL Albumin/Globulin Ratio 0.5 (1.0-2.7) L Lipase 617 U/L (73-393) H Current Medications Medications (Trade) Dose Ordered Sig/Mckenzie Route PRN Reason Start Time Stop Time Status Last Admin Dose Admin Acetaminophen (Tylenol) 650 mg Q4H PRN ORAL T>100.5 07/25/19 16:26 08/24/19 16:25 07/26/19 20:04 Albuterol/ Ipratropium (Albuterol/ Ipratropium) 3 ml Q4H PRN HHN Shortness of Breath 07/25/19 16:26 07/30/19 16:25 07/25/19 17:33 Clonidine HCl (Catapres Tab) 0.1 mg Q4H PRN ORAL SBP > 160 07/26/19 07:00 08/25/19 06:59 Heparin Sodium (Porcine) (Heparin 5000 units/ml) 5,000 units EVERY 12 HOURS SUBQ 07/25/19 21:00 08/23/19 08:59 07/26/19 20:08 Morphine Sulfate (Morphine Sulfate) 2 mg Q4H PRN IVP Severe Pain (Pain Scale 7-10) 07/25/19 16:45 07/31/19 08:44 07/27/19 11:09 Nitroglycerin (Ntg) 0.4 mg Q5MIN X 3 DOSES PRN SL Prn Chest Pain 07/25/19 16:30 08/23/19 08:44 Ondansetron HCl (Zofran) 4 mg Q6H PRN IVP Nausea & Vomiting 07/25/19 16:27 08/24/19 16:26 07/25/19 21:28 Pantoprazole (Protonix) 40 mg Q12HR IV 07/25/19 21:00 08/23/19 08:59 07/26/19 20:05 Piperacillin Sod/ Tazobactam Sod 3.375 gm/Sodium Chloride 110 ml @ 27.5 mls/hr EVERY 8 HOURS IVPB 07/26/19 14:00 07/31/19 13:59 07/27/19 05:01 Polyethylene Glycol (Miralax) 17 gm DAILYPRN PRN ORAL Constipation 07/25/19 16:27 08/24/19 16:26 Sodium Chloride 1,000 ml @ 75 mls/hr [id number] IV 07/25/19 16:26 08/24/19 16:25 07/26/19 18:12 Sucralfate (Carafate) 1 gm FOUR TIMES A DAY ORAL 07/25/19 18:00 08/23/19 08:59 07/26/19 20:06 Temazepam (Restoril) 15 mg HSPRN PRN ORAL Insomnia 07/25/19 21:00 07/31/19 20:59 Georgina Fields M.D. Jul 27, 2019 12:12
--- NOTE | 2019-07-27 12:26 | Diagnostic Imaging Report ---
Indications: Reason For Exam: ABD PAIN Technique: IV administration 6 mCi 99m technetium Choletec. Serial images obtained over the abdomen for 90 minutes. 2 mg of morphine administered IV at 60 minutes Comparison: Reference made to abdominal sonogram dated 07/24/2019, abdominal pelvic CT dated 07/24/2019 Findings: Prompt tracer uptake within the liver. Extrahepatic bile ducts are seen at 10 minutes. Excretion into the duodenum demonstrated at 13 minutes. The gallbladder is never visualized Impression: Nonvisualization of the gallbladder. This is suspicious for acute cholecystitis Patent common bile duct Patient's nurse notified of the findings at the time of interpretation
--- NOTE | 2019-07-27 12:48 | NUR ---
NURSE NOTES: Dr Gray is here spoke to pt in regards to surgery pending, pt has had previous EKGs . Pt will receive a dose another dose antibiotics prior to surgery .
--- NOTE | 2019-07-27 13:04 | NUR ---
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 98.8 HR 60 RR 20 B/P 165/90 WBC 19.1 BUN 22 URINE TOX + THC CXR= NEGATIVE ABD/PEL+ ACUTE CHOLECYSTITIS HIDA SCAN + ACUTE CHOLECYSTITIS IS: IV BOLUS NS X 1 LITER BENTYL PO DICYCLOMINE MYLANTA PO ADMITTED TO MED/SURG MED/SURG STATUS DCP PENDING HOSPITAL STAY
--- NOTE | 2019-07-27 13:16 | GI Progress Note ---
Assessment/Plan Problems: (1) Abdominal pain ICD Codes: R10.9 - Unspecified abdominal pain SNOMED: 15180792 (2) Cholecystitis ICD Codes: K81.9 - Cholecystitis, unspecified SNOMED: 88149607 Status: unchanged Status Narrative Discussed with Dr. Sotelo Assessment/Plan Assessment - RUQ pain - abnormal GB imaging, possible cholecystitis - diverticulosis, possible diverticulitis Recommendations - follow exam - antibiotics - surgical f/u, possible plan for OR tomorrow -We will monitor for postoperative nausea and vomiting The patient was seen and examined at bedside and all new and available data was reviewed in the patients chart. I agree with the above findings, impression and plan. (Patient seen earlier today. Signature stamp does not reflect patient encounter time.). - Manish Sotelo MD Subjective Gastrointestinal/Abdominal: Reports: abdominal pain Objective Last 24 Hour Vital Signs Date Time Temp Pulse Resp B/P (MAP) Pulse Ox O2 Delivery O2 Flow Rate FiO2 07/27/19 09:00 Room Air 07/27/19 04:00 99.3 86 16 123/75 (91) 97 07/27/19 00:00 98.9 89 18 121/73 (89) 95 07/26/19 21:00 Room Air 07/26/19 20:13 100.8 86 19 142/88 (106) 07/26/19 20:00 84 18 95 Room Air 21 07/26/19 20:00 100.8 86 19 142/88 (106) 95 07/26/19 18:36 97.7 07/26/19 16:00 97.7 83 20 136/82 (100) 95 Intake and Output 07/26/19 07/27/19 19:00 07:00 Intake Total 1310 ml 750 ml Balance 1310 ml 750 ml Intake Oral 300 ml 0 ml IV Total 1010 ml 750 ml # Voids 2 1 Laboratory Tests Test 07/27/19 07:21 White Blood Count 19.1 K/UL (4.8-10.8) H Red Blood Count 4.36 M/UL (4.70-6.10) L Hemoglobin 14.2 G/DL (14.2-18.0) Hematocrit 40.3 % (42.0-52.0) L Mean Corpuscular Volume 93 FL (80-99) Mean Corpuscular Hemoglobin 32.5 PG (27.0-31.0) H Mean Corpuscular Hemoglobin Concent 35.1 G/DL (32.0-36.0) Red Cell Distribution Width 10.3 % (11.6-14.8) L Platelet Count 239 K/UL (150-450) Mean Platelet Volume 6.2 FL (6.5-10.1) L Neutrophils (%) (Auto) % (45.0-75.0) Lymphocytes (%) (Auto) % (20.0-45.0) Monocytes (%) (Auto) % (1.0-10.0) Eosinophils (%) (Auto) % (0.0-3.0) Basophils (%) (Auto) % (0.0-2.0) Differential Total Cells Counted 100 Neutrophils % (Manual) 89 % (45-75) H Lymphocytes % (Manual) 5 % (20-45) L Monocytes % (Manual) 6 % (1-10) Eosinophils % (Manual) 0 % (0-3) Basophils % (Manual) 0 % (0-2) Band Neutrophils 0 % (0-8) Platelet Estimate Adequate Platelet Morphology Normal Red Blood Cell Morphology Normal Prothrombin Time 10.0 SEC (9.30-11.50) Prothromb Time International Ratio 0.9 (0.9-1.1) Activated Partial Thromboplast Time 34 SEC (23-33) H Sodium Level 137 MMOL/L (136-145) Potassium Level 4.0 MMOL/L (3.5-5.1) Chloride Level 101 MMOL/L (98-107) Carbon Dioxide Level 26 MMOL/L (21-32) Anion Gap 10 mmol/L (5-15) Blood Urea Nitrogen 12 mg/dL (7-18) Creatinine 1.0 MG/DL (0.55-1.30) Estimat Glomerular Filtration Rate > 60 mL/min (>60) Glucose Level 108 MG/DL (74-106) H Calcium Level 8.3 MG/DL (8.5-10.1) L Total Bilirubin 0.8 MG/DL (0.2-1.0) Aspartate Amino Transf (AST/SGOT) 14 U/L (15-37) L Alanine Aminotransferase (ALT/SGPT) 24 U/L (12-78) Alkaline Phosphatase 49 U/L (46-116) Total Protein 7.1 G/DL (6.4-8.2) Albumin 2.5 G/DL (3.4-5.0) L Globulin 4.6 g/dL Albumin/Globulin Ratio 0.5 (1.0-2.7) L Lipase 617 U/L (73-393) H Height (Feet): 6 Height (Inches): 1.00 Weight (Pounds): 154 General Appearance: WD/WN, no apparent distress, alert Cardiovascular: normal rate Respiratory/Chest: normal breath sounds, no respiratory distress Abdominal Exam: normal bowel sounds, non tender, soft Extremities: normal range of motion, non-tender Lindsey Montesinos NP Jul 27, 2019 13:16
--- NOTE | 2019-07-27 14:28 | Surgery Progress Note ---
Surgery Progress Note Subjective Additional Comments lipase trending down somewhat. less pain today wbc trending down HIDA ordered and noted discussed with patient findings and care plan Objective Last 24 Hour Vital Signs Date Time Temp Pulse Resp B/P (MAP) Pulse Ox O2 Delivery O2 Flow Rate FiO2 07/27/19 09:00 Room Air 07/27/19 04:00 99.3 86 16 123/75 (91) 97 07/27/19 00:00 98.9 89 18 121/73 (89) 95 07/26/19 21:00 Room Air 07/26/19 20:13 100.8 86 19 142/88 (106) 07/26/19 20:00 84 18 95 Room Air 21 07/26/19 20:00 100.8 86 19 142/88 (106) 95 07/26/19 18:36 97.7 07/26/19 16:00 97.7 83 20 136/82 (100) 95 I&O Intake and Output 07/26/19 07/27/19 19:00 07:00 Intake Total 1310 ml 750 ml Balance 1310 ml 750 ml Intake Oral 300 ml 0 ml IV Total 1010 ml 750 ml # Voids 2 1 Cardiovascular: RSR Respiratory: clear Abdomen: soft, flat, non-tender, present bowel sounds Extremities: no edema, no tenderness, no cyanosis Laboratory Tests Test 07/27/19 07:21 White Blood Count 19.1 K/UL (4.8-10.8) H Red Blood Count 4.36 M/UL (4.70-6.10) L Hemoglobin 14.2 G/DL (14.2-18.0) Hematocrit 40.3 % (42.0-52.0) L Mean Corpuscular Volume 93 FL (80-99) Mean Corpuscular Hemoglobin 32.5 PG (27.0-31.0) H Mean Corpuscular Hemoglobin Concent 35.1 G/DL (32.0-36.0) Red Cell Distribution Width 10.3 % (11.6-14.8) L Platelet Count 239 K/UL (150-450) Mean Platelet Volume 6.2 FL (6.5-10.1) L Neutrophils (%) (Auto) % (45.0-75.0) Lymphocytes (%) (Auto) % (20.0-45.0) Monocytes (%) (Auto) % (1.0-10.0) Eosinophils (%) (Auto) % (0.0-3.0) Basophils (%) (Auto) % (0.0-2.0) Differential Total Cells Counted 100 Neutrophils % (Manual) 89 % (45-75) H Lymphocytes % (Manual) 5 % (20-45) L Monocytes % (Manual) 6 % (1-10) Eosinophils % (Manual) 0 % (0-3) Basophils % (Manual) 0 % (0-2) Band Neutrophils 0 % (0-8) Platelet Estimate Adequate Platelet Morphology Normal Red Blood Cell Morphology Normal Prothrombin Time 10.0 SEC (9.30-11.50) Prothromb Time International Ratio 0.9 (0.9-1.1) Activated Partial Thromboplast Time 34 SEC (23-33) H Sodium Level 137 MMOL/L (136-145) Potassium Level 4.0 MMOL/L (3.5-5.1) Chloride Level 101 MMOL/L (98-107) Carbon Dioxide Level 26 MMOL/L (21-32) Anion Gap 10 mmol/L (5-15) Blood Urea Nitrogen 12 mg/dL (7-18) Creatinine 1.0 MG/DL (0.55-1.30) Estimat Glomerular Filtration Rate > 60 mL/min (>60) Glucose Level 108 MG/DL (74-106) H Calcium Level 8.3 MG/DL (8.5-10.1) L Total Bilirubin 0.8 MG/DL (0.2-1.0) Aspartate Amino Transf (AST/SGOT) 14 U/L (15-37) L Alanine Aminotransferase (ALT/SGPT) 24 U/L (12-78) Alkaline Phosphatase 49 U/L (46-116) Total Protein 7.1 G/DL (6.4-8.2) Albumin 2.5 G/DL (3.4-5.0) L Globulin 4.6 g/dL Albumin/Globulin Ratio 0.5 (1.0-2.7) L Lipase 617 U/L (73-393) H Plan Problems: (1) Abdominal pain Assessment & Plan: 54-year-old male with abdominal pain. Leukocytosis. CT scan with distended gallbladder, inguinal hernia, umbilical hernia, Diverticula Afebrile hemodynamic stable labs as above CT as below States the pain is improved since admission Currently tolerating clear liquids Abdominal ultrasound noted CT noted No acute surgical intervention at this time We will monitor for improvement. If no improvement will proceed with further imaging and potentially surgery if necessary HIDA scan noted + Antibiotics as per infectious disease We will follow with recommendations thank you for allowing participate patient' s care discussed with patient in depth findings. recommend lap vs open [place] scheduled for 07/28. AM labs (2) Cholecystitis Assessment & Plan: * Distended gallbladder with wall thickening and mild pericholecystic inflammatory changes concerning for acute cholecystitis. Correlate clinically. Consider further imaging of the gallbladder with ultrasound or HIDA. * Left inguinal hernia containing fat and loop of sigmoid colon. No evidence to suggest associated obstruction. There is some induration of the herniated contents however. Correlate with physical exam to assess for reducibility. * Colonic diverticulosis. Mild stranding noted in the left lower quadrant which may related to the above-described hernia. If there is left lower quadrant pain the possibility of mild diverticulitis cannot be excluded. * Small fat-containing right inguinal hernia and fat-containing umbilical hernia. * Small hemangioma in the right hepatic lobe. Additional findings as above. This corresponds with the preliminary report by [facility]. Shelton Farooq Jul 27, 2019 14:28
--- NOTE | 2019-07-27 15:27 | NUR ---
NURSE NOTES: Dr Hoang here seen pt gave instructions to allow pt to have clear liquid diet until midnight NPO there after. Zosyn remains running IV site patent , due to location of line there is some resistance on the pump, but the line flushes well. Pt has personal juice at bedside is tolerating fluids well. Has had a large formed bowel movement per pt. Current plan of care will be followed
[2019-07-27 16:00] VITALS: BP 134/81
--- NOTE | 2019-07-27 18:46 | Internal Med Progress Note ---
Subjective Date of Service: Jul 27, 2019 Physician Name Issa Singh Attending Physician Wan Triplett MD Current Medications Medications (Trade) Dose Ordered Sig/Mckenzie Route PRN Reason Start Time Stop Time Status Last Admin Dose Admin Acetaminophen (Tylenol) 650 mg Q4H PRN ORAL T>100.5 07/25/19 16:26 08/24/19 16:25 07/27/19 13:45 Albuterol/ Ipratropium (Albuterol/ Ipratropium) 3 ml Q4H PRN HHN Shortness of Breath 07/25/19 16:26 07/30/19 16:25 07/25/19 17:33 Clonidine HCl (Catapres Tab) 0.1 mg Q4H PRN ORAL SBP > 160 07/26/19 07:00 08/25/19 06:59 Heparin Sodium (Porcine) (Heparin 5000 units/ml) 5,000 units EVERY 12 HOURS SUBQ 07/25/19 21:00 08/23/19 08:59 07/26/19 20:08 Morphine Sulfate (Morphine Sulfate) 2 mg Q4H PRN IVP Severe Pain (Pain Scale 7-10) 07/25/19 16:45 07/31/19 08:44 07/27/19 16:52 Nitroglycerin (Ntg) 0.4 mg Q5MIN X 3 DOSES PRN SL Prn Chest Pain 07/25/19 16:30 08/23/19 08:44 Ondansetron HCl (Zofran) 4 mg Q6H PRN IVP Nausea & Vomiting 07/25/19 16:27 08/24/19 16:26 07/25/19 21:28 Pantoprazole (Protonix) 40 mg Q12HR IV 07/25/19 21:00 08/23/19 08:59 07/26/19 20:05 Piperacillin Sod/ Tazobactam Sod 3.375 gm/Sodium Chloride 110 ml @ 27.5 mls/hr EVERY 8 HOURS IVPB 07/26/19 14:00 07/31/19 13:59 07/27/19 13:46 Polyethylene Glycol (Miralax) 17 gm DAILYPRN PRN ORAL Constipation 07/25/19 16:27 08/24/19 16:26 Sodium Chloride 1,000 ml @ 75 mls/hr [id number] IV 07/25/19 16:26 11/18/19 16:25 07/26/19 18:12 Sucralfate (Carafate) 1 gm FOUR TIMES A DAY ORAL 07/25/19 18:00 08/23/19 08:59 07/27/19 16:52 Temazepam (Restoril) 15 mg HSPRN PRN ORAL Insomnia 07/25/19 21:00 07/31/19 20:59 Allergies: Coded Allergies: No Known Allergies (Unverified , 07/24/19) ROS Limited/Unobtainable: No Constitutional: Reports: no symptoms HEENT: Reports: no symptoms Cardiovascular: Reports: no symptoms Respiratory: Reports: no symptoms Gastrointestinal/Abdominal: Reports: no symptoms Genitourinary: Reports: no symptoms Neurologic/Psychiatric: Reports: no symptoms Subjective 54 YO M admitted with epigastric pain. Now acute cholecystitis and cholelithiasis. Cover for Int Steven-Dr Triplett Objective Last Vital Signs Date Time Temp Pulse Resp B/P (MAP) Pulse Ox O2 Delivery O2 Flow Rate FiO2 07/27/19 16:00 97.8 82 18 134/81 (98) 07/27/19 12:00 98 07/27/19 09:00 Room Air 07/27/19 08:54 21 Laboratory Tests Test 07/27/19 07:21 White Blood Count 19.1 K/UL (4.8-10.8) H Red Blood Count 4.36 M/UL (4.70-6.10) L Hemoglobin 14.2 G/DL (14.2-18.0) Hematocrit 40.3 % (42.0-52.0) L Mean Corpuscular Volume 93 FL (80-99) Mean Corpuscular Hemoglobin 32.5 PG (27.0-31.0) H Mean Corpuscular Hemoglobin Concent 35.1 G/DL (32.0-36.0) Red Cell Distribution Width 10.3 % (11.6-14.8) L Platelet Count 239 K/UL (150-450) Mean Platelet Volume 6.2 FL (6.5-10.1) L Neutrophils (%) (Auto) % (45.0-75.0) Lymphocytes (%) (Auto) % (20.0-45.0) Monocytes (%) (Auto) % (1.0-10.0) Eosinophils (%) (Auto) % (0.0-3.0) Basophils (%) (Auto) % (0.0-2.0) Differential Total Cells Counted 100 Neutrophils % (Manual) 89 % (45-75) H Lymphocytes % (Manual) 5 % (20-45) L Monocytes % (Manual) 6 % (1-10) Eosinophils % (Manual) 0 % (0-3) Basophils % (Manual) 0 % (0-2) Band Neutrophils 0 % (0-8) Platelet Estimate Adequate Platelet Morphology Normal Red Blood Cell Morphology Normal Prothrombin Time 10.0 SEC (9.30-11.50) Prothromb Time International Ratio 0.9 (0.9-1.1) Activated Partial Thromboplast Time 34 SEC (23-33) H Sodium Level 137 MMOL/L (136-145) Potassium Level 4.0 MMOL/L (3.5-5.1) Chloride Level 101 MMOL/L (98-107) Carbon Dioxide Level 26 MMOL/L (21-32) Anion Gap 10 mmol/L (5-15) Blood Urea Nitrogen 12 mg/dL (7-18) Creatinine 1.0 MG/DL (0.55-1.30) Estimat Glomerular Filtration Rate > 60 mL/min (>60) Glucose Level 108 MG/DL (74-106) H Calcium Level 8.3 MG/DL (8.5-10.1) L Total Bilirubin 0.8 MG/DL (0.2-1.0) Aspartate Amino Transf (AST/SGOT) 14 U/L (15-37) L Alanine Aminotransferase (ALT/SGPT) 24 U/L (12-78) Alkaline Phosphatase 49 U/L (46-116) Total Protein 7.1 G/DL (6.4-8.2) Albumin 2.5 G/DL (3.4-5.0) L Globulin 4.6 g/dL Albumin/Globulin Ratio 0.5 (1.0-2.7) L Lipase 617 U/L (73-393) H Intake and Output 07/26/19 07/27/19 19:00 07:00 Intake Total 1310 ml 750 ml Balance 1310 ml 750 ml Intake Oral 300 ml 0 ml IV Total 1010 ml 750 ml # Voids 2 1 Objective PHYSICAL EXAMINATION: GENERAL: The patient is awake, responsive, no acute distress. HEENT: Head and neck examination, pupils are reactive to light. Extraocular movements intact. NECK: Supple. No JVD. LUNGS: Good air entry. No wheezing or rales. HEART: S1 and S2. Regular rhythm. No murmur or gallops. ABDOMEN: Soft. Tenderness in the epigastric area. No rebound tenderness. No fluid shift. The patient has a hernia on the left side, left groin inguinal area and umbilical hernia was noted. EXTREMITIES: No cyanosis, clubbing, edema NEUROLOGIC: Cranial nerves II through XII grossly normal. Motor is 5/5 in all extremities. Gait is intact. RECTAL: Refused and deferred. GENITOURINARY: Refused and deferred. PSYCHIATRIC: Mood and affect is intact Assessment/Plan Assessment/Plan ASSESSMENT: 1. Abdominal pain, 2. leukocytosis 3. acute cholecystitis and cholelithiasis. HIDA=C/W cholecystitis 4. Left inguinal hernia. 5. Umbilical hernia. PLAN: 1. Admit the patient to monitored floor. 2. tolerating clear liquid diet 3. antibiotics = zosyn 4. Code status is Full Code. 5. DVT prophylaxis=Heparin subcutaneous. 6. surgicalconsultation with Dr. Farooq; laparoscopic vs open cholecystectomy 07/28/19 7. GI consultation with 8. Infectious Disease consultation with Issa Kaminski MD Jul 27, 2019 18:46
--- NOTE | 2019-07-27 18:52 | NUR ---
NURSE NOTES: Pt overall in better status hydrated via IV fluids in addition to oral fluids. Pt will be NPO at Midnight. Has not had another episode of vomitus
--- NOTE | 2019-07-27 19:37 | NUR ---
HAND-OFF: Report given to Cira informed to have pt NPO at midnight for possible surgery tomorrow.
[2019-07-27 20:00] VITALS: BP 127/78
[2019-07-27] MEDS: Albuterol/Ipratropium 3ml neb HHN PRN (20:41)
[2019-07-28] VITALS (15 sets, daily range): BP systolic 111–141; BP diastolic 72–99
--- NOTE | 2019-07-28 02:57 | NUR ---
NURSES NOTE: Met patient in bed, AXO X4, patient is communicative and able to express needs. Patient shows no outward s/s of distress. VS are within normal limits. All 2100 due meds given according to eMAR. Patient states he has (R) side abdominal pain. Morphine sulfate 2mg/1ml given. Effective- patients pain went from 9/10 to 3/10. Patient also given tylenol 650mg given for a headache. Dr Triplett contacted and new order for tylenol for minor pain processed. Patient is NPO as of 0000. All liquids removed from bedside for possible procedure in the AM. Call light within reach, bed at lowest level. Patient will continue to be monitored.
[2019-07-28] MEDS: Morphine Sulfate 2mg/ml Inj(IV/IM USE ONLY) IVP PRN ×3 (03:52→23:19)
[2019-07-28 05:44] LABS: BASOPHILS % (AUTO) 0.5 % (0.0-2.0); EOSINOPHILS % (AUTO) 0.7 % (0.0-3.0); HEMATOCRIT 37.6 % (42.0-52.0); LYMPHOCYTES % (AUTO) 14.2 % (20.0-45.0); MEAN CORPUSCULAR VOLUME 94 FL (80-99); MONOCYTES % (AUTO) 8.4 % (1.0-10.0); NEUTROPHILS % (AUTO) 76.2 % (45.0-75.0); PLATELET COUNT 274 K/UL (150-450); RED BLOOD COUNT 4.02 M/UL (4.70-6.10); WHITE BLOOD COUNT 12.8 K/UL (4.8-10.8)
[2019-07-28 05:57] LABS: ANION GAP 10 mmol/L (5-15); BLOOD UREA NITROGEN 13 mg/dL (7-18); CALCIUM 8.7 MG/DL (8.5-10.1); CARBON DIOXIDE 27 MMOL/L (21-32); CHLORIDE 102 MMOL/L (98-107); POTASSIUM 3.9 MMOL/L (3.5-5.1); SODIUM 139 MMOL/L (136-145)
[2019-07-28] MEDS: Piperacillin/Tazobactam 3.375 GM in NS 110 ML IVPB SCH ×3 (06:08→21:07)
[2019-07-28 06:27] LABS: AMYLASE 159 U/L (25-115)
[2019-07-28] MEDS ORDERED: Bupivacaine w/Epi 0.5% 30ml Vial INJ ONE (07:28)
[2019-07-28] MEDS ORDERED: Iothalamate Meglumine 60% 30ML INJ ONE (07:28)
--- NOTE | 2019-07-28 07:40 | NUR ---
NURSE NOTES: WALKING ROUNDS DONE WITH OUTGOING RN. PATIENT AOX4. QUESTIONS ANSWERED, NEEDS MET. DISCUSSED PLAN OF CARE FOR THE DAY. VERBALIZED UNDERSTANDING. NPO FOR SURGERY THIS AM. DENIES PAIN AT THIS TIME. BED IN LOW AND LOCKED POSITION. CALL LIGHT WITHIN REACH.
--- NOTE | 2019-07-28 08:01 | NUR ---
HAND OFF: Report given to DESMOND Krishnan. Patient in stable condition.
[2019-07-28] MEDS: Heparin 5000 units/ml inj SUBQ SCH ×2 (08:49→21:09)
[2019-07-28] MEDS ORDERED: fentaNYL 100 mcg/2 mL IV ONE (09:03)
[2019-07-28] MEDS ORDERED: Midazolam 2mg/2ml Inj ONE (09:03)
[2019-07-28] MEDS ORDERED: Lidocaine 1% MPF 10mg/ml 5ml ONE (09:04)
[2019-07-28] MEDS ORDERED: Propofol 200mg/20ml IV ONE (09:04)
[2019-07-28] MEDS ORDERED: Rocuronium Bromide 50mg/5ml Inj IV ONE (09:15)
[2019-07-28] MEDS ORDERED: Succinylcholine 20mg/ml 10ml vial ONE (09:15)
--- NOTE | 2019-07-28 09:25 | NUR ---
NURSE NOTES: PATIENT SENT TO SURGERY VIA BED. PATIENT IDENTIFIED AT BEDSIDE WITH TRANSPORTER. SEEN BY DR. BURRELL AT BEDSIDE. QUESTIONS ANSWERED NEEDS MET.
[2019-07-28] MEDS ORDERED: NS Irrig 1000ml ONE (09:30)
[2019-07-28] MEDS ORDERED: Sterile Water Irrig 1000ml IRRIG ONE (09:30)
[2019-07-28] MEDS ORDERED: LR 1000ml ONE (09:30)
[2019-07-28] MEDS ORDERED: NS Irrig 1000ml IRRIG ONE (09:50)
[2019-07-28] MEDS ORDERED: Morphine Sulfate 10mg/ml Inj ONE (10:15)
[2019-07-28] MEDS ORDERED: Glycopyrrolate 0.2mg/ml 1ml Vial ONE (10:16)
[2019-07-28] MEDS ORDERED: Ketorolac 30mg Inj ONE (10:16)
[2019-07-28] MEDS ORDERED: Sodium Chloride 10ml vial INJ ONE (10:16)
--- NOTE | 2019-07-28 10:28 | Anethesia Preoperative Eval ---
Anesthesia Pre-op PMH/ROS General Date of Evaluation: Jul 28, 2019 Time of Evaluation: 09:10 Anesthesiologist: Bang ASA Score: ASA 2 Mallampati Score Class I : Soft palate, uvula, fauces, pillars visible Class II: Soft palate, uvula, fauces visible Class III: Soft palate, base of uvula visible Class IV: Only hard plate visible Mallampati Classification: Class II Surgeon: Jane Diagnosis: Symptomatic cholelithiasis Surgical Procedure: Cholecystectomy Anesthesia History: none Social History: current smoker Family History: no anesthesia problems Allergies: Coded Allergies: No Known Allergies (Unverified , 07/24/19) Medications: see eMAR Patient NPO?: Yes NPO Date: Jul 26, 2019 NPO Time: 2300 Past Medical History Cardiovascular: Denies: HTN, CAD, [place], valve dz, arrhythmia, other Pulmonary: Reports: COPD - mild; Denies: asthma, TUCKER, other Gastrointestinal/Genitourinary: Reports: GERD - mild; Denies: CRI, ESRD, other Neurologic/Psychiatric: Denies: dementia, CVA, depression/anxiety, TIA, other Endocrine: Denies: DM, hypothyroidism, steroids, other HEENT: Denies: cataract (L), cataract (R), glaucoma, [place] (L), [place] (R), other Hematology/Immune: Denies: anemia, DVT, bleeding disorder, other Musculoskeletal/Integumentary: Denies: OA, RA, DJD, DDD, edema, other PMH Narrative: as above PSxH Narrative: admitted for persistent abdominal pain no previous surgical history Anesthesia Pre-op Phys. Exam Physician Exam Last Vital Signs Date Time Temp Pulse Resp B/P (MAP) Pulse Ox O2 Delivery O2 Flow Rate FiO2 07/28/19 08:00 97.4 76 20 121/82 (95) 96 07/27/19 21:00 Room Air 07/27/19 20:41 21 Constitutional: NAD Neurologic: CN 2-12 intact Cardiovascular: RRR, no M/R/G Respiratory: CTA, other - some wheezing bilaterally Gastrointestinal: other - some tenderness Airway Exam Mallampati Score: Class II MO: full Neck: flexible ROM: full Teeth: missing Dentures: no upper, no lower Anesthesia Pre-op A/P Labs Hematology Test 07/28/19 05:10 White Blood Count 12.8 K/UL (4.8-10.8) H Red Blood Count 4.02 M/UL (4.70-6.10) L Hemoglobin 13.0 G/DL (14.2-18.0) L Hematocrit 37.6 % (42.0-52.0) L Mean Corpuscular Volume 94 FL (80-99) Mean Corpuscular Hemoglobin 32.4 PG (27.0-31.0) H Mean Corpuscular Hemoglobin Concent 34.7 G/DL (32.0-36.0) Red Cell Distribution Width 11.0 % (11.6-14.8) L Platelet Count 274 K/UL (150-450) Mean Platelet Volume 6.0 FL (6.5-10.1) L Neutrophils (%) (Auto) 76.2 % (45.0-75.0) H Lymphocytes (%) (Auto) 14.2 % (20.0-45.0) L Monocytes (%) (Auto) 8.4 % (1.0-10.0) Eosinophils (%) (Auto) 0.7 % (0.0-3.0) Basophils (%) (Auto) 0.5 % (0.0-2.0) Coagulation Test 07/28/19 05:10 Prothrombin Time 10.5 SEC (9.30-11.50) Prothromb Time International Ratio 1.0 (0.9-1.1) Activated Partial Thromboplast Time 34 SEC (23-33) H Chemistry Test 07/28/19 05:10 Sodium Level 139 MMOL/L (136-145) Potassium Level 3.9 MMOL/L (3.5-5.1) Chloride Level 102 MMOL/L (98-107) Carbon Dioxide Level 27 MMOL/L (21-32) Anion Gap 10 mmol/L (5-15) Blood Urea Nitrogen 13 mg/dL (7-18) Creatinine 1.0 MG/DL (0.55-1.30) Estimat Glomerular Filtration Rate > 60 mL/min (>60) Glucose Level 101 MG/DL (74-106) Calcium Level 8.7 MG/DL (8.5-10.1) Amylase Level 159 U/L (25-115) H Lipase 931 U/L (73-393) H Risk Assessment & Plan Assessment: ASA 2 Plan: GA with ETT Status Change Before Surgery: No Pre-Antibiotics Drug: Ancef 1gr. Given Within 1 Hr of Incision: Yes Time Given: 10:12 Pawel Cuenca MD Jul 28, 2019 10:28
[2019-07-28] MEDS ORDERED: LR 1000ml 1,000 ML IVLG SCH (10:40)
[2019-07-28] MEDS ORDERED: Hydromorphone 0.5mg/0.5ml inj IVP PRN (10:45)
[2019-07-28] MEDS ORDERED: DiphenhydrAMINE 50mg/ml Inj IVP PRN (10:45)
[2019-07-28] MEDS ORDERED: Meperidine 50mg/ml Inj(FOR RIGORS ONLY) IV PRN (10:45)
[2019-07-28] MEDS ORDERED: Ketorolac 30mg Inj IV PRN (10:45)
--- NOTE | 2019-07-28 11:14 | Immediate Post-Op Evaluation ---
Immediate Post-Op Evalulation Immediate Post-Op Evalulation Procedure: Laparoscopic cholecystectomy Date of Evaluation: Jul 28, 2019 Time of Evaluation: 11:13 IV Fluids: 1000 Blood Products: none Estimated Blood Loss: 50 Urinary Output: none Blood Pressure Systolic: 122 Blood Pressure Diastolic: 84 Pulse Rate: 88 Respiratory Rate: 22 O2 Sat by Pulse Oximetry: 99 Temperature (Fahrenheit): 97.6 Pain Score (1-10): 2 Nausea: No Vomiting: No Complications none Patient Status: awake, patent, extubated, none Hydration Status: adequate Pawel Cuenca MD Jul 28, 2019 11:14
--- NOTE | 2019-07-28 11:27 | General Progress Note ---
Assessment/Plan Status: unchanged Assessment/Plan: Assessment/Plan Problems: (1) Abdominal pain ICD Codes: R10.9 - Unspecified abdominal pain SNOMED: [id number] (2) Cholecystitis Assessment/Plan Assessment - RUQ pain - abnormal GB imaging, possible cholecystitis - diverticulosis, possible diverticulitis Recommendations POD #1 fu surg recs pain control abx fu labs Subjective ROS Limited/Unobtainable: Yes Allergies: Coded Allergies: No Known Allergies (Unverified , 07/24/19) Objective Last 24 Hour Vital Signs Date Time Temp Pulse Resp B/P (MAP) Pulse Ox O2 Delivery O2 Flow Rate FiO2 07/28/19 11:21 88 17 127/87 97 Nasal Cannula 3 07/28/19 11:17 96 21 134/81 97 Nasal Cannula 3 07/28/19 11:14 88 22 99 07/28/19 11:12 98.1 98 22 133/77 99 Simple Mask 6 07/28/19 09:00 Room Air 07/28/19 08:00 97.4 76 20 121/82 (95) 96 07/28/19 04:50 97.5 71 15 121/75 (90) 71 07/28/19 00:00 97.9 81 16 111/82 (92) 96 07/27/19 21:00 Room Air 07/27/19 20:41 82 18 98 Room Air 21 87 18 94 07/27/19 20:41 87 18 94 Room Air 21 07/27/19 20:00 98.3 93 17 127/78 (94) 93 07/27/19 16:00 97.8 82 18 134/81 (98) 07/27/19 12:00 97.8 76 18 131/70 (90) 98 Intake and Output 07/27/19 07/28/19 19:00 07:00 Intake Total 1335.0 ml 1265.0 ml Balance 1335.0 ml 1265.0 ml Intake Oral 1000 ml 480 ml IV Total 335.0 ml 785.0 ml # Voids 1 Laboratory Tests 07/28/19 05:10: White Blood Count 12.8H, Red Blood Count 4.02L, Hemoglobin 13.0L, Hematocrit 37.6L, Mean Corpuscular Volume 94, Mean Corpuscular Hemoglobin 32.4H, Mean Corpuscular Hemoglobin Concent 34.7, Red Cell Distribution Width 11.0L, Platelet Count 274, Mean Platelet Volume 6.0L, Neutrophils (%) (Auto) 76.2H, Lymphocytes (%) (Auto) 14.2L, Monocytes (%) (Auto) 8.4, Eosinophils (%) (Auto) 0.7, Basophils (%) (Auto) 0.5, Prothrombin Time 10.5, Prothromb Time International Ratio 1.0, Activated Partial Thromboplast Time 34H, Sodium Level 139, Potassium Level 3.9, Chloride Level 102, Carbon Dioxide Level 27, Anion Gap 10, Blood Urea Nitrogen 13, Creatinine 1.0, Estimat Glomerular Filtration Rate > 60, Glucose Level 101, Calcium Level 8.7, Amylase Level 159H, Lipase 931H Height (Feet): 6 Height (Inches): 1.00 Weight (Pounds): 154 General Appearance: alert EENT: normal ENT inspection Neck: supple Cardiovascular: normal rate Respiratory/Chest: decreased breath sounds Abdomen: normal bowel sounds, non tender, soft Extremities: non-tender Manish Sotelo MD Jul 28, 2019 11:27
--- NOTE | 2019-07-28 11:34 | Brief Operative Note ---
Immediate Post Operative Note Operative Note Pre-op Diagnosis: acute cholecystitis; gallstone pancreatitis Procedure: lap maria del carmen Post-op Diagnosis: same as pre-op Surgeon: abilio dinh Anesthesiologist: Richard Cuenca Anesthesia: general, local Specimen: yes Complications: none Condition: stable Fluids: see records Estimated Blood Loss: minimal Drains: none Implant(s) used?: Abilio Chino Jul 28, 2019 11:34
[2019-07-28] MEDS ORDERED: HYDROcodone/Acetamin 5/325 tab ORAL PRN (11:45)
[2019-07-28] MEDS ORDERED: Milk of Magnesia 30ml Ud ORAL PRN (11:45)
--- NOTE | 2019-07-28 12:18 | Infectious Diseases Prog Note ---
Assessment/Plan Assessment/Plan Assessment: Abdominal pain- 2ry to Acute cholecystitis Gallstone pancreatitis -07/28 SP Laparoscopic cholecystectomy -HIDA scan: Nonvisualization of the gallbladder. This is suspicious for acute cholecystitis. Patent common bile duct -Abd US: Cholelithiasis and positive sonographic Mendenhall's sign suggesting acute cholecystitis. 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 -CT abd/p: Distended gallbladder with wall thickening and mild pericholecystic inflammatory changes concerning for acute cholecystitis. Correlate clinically. Consider further imaging of the gallbladder with ultrasound or HIDA. Left inguinal hernia containing fat and loop of sigmoid colon. No evidence to suggest associated obstruction. There is some induration of the herniated contents however. Correlate with physical exam to assess for reducibility.Colonic diverticulosis. Mild stranding noted in the left lower quadrant which may related to the above-described hernia. If there is left lower quadrant pain the possibility of mild diverticulitis cannot be excluded. Small fat-containing right inguinal hernia and fat-containing umbilical hernia. Small hemangioma in the right hepatic lobe. Low grade fever; improvnig Leukocytosis; increased, now improving -CXR: no acute disease -u/a neg Plan: -Continue Zosyn #3/5 for acute cholecystitis -07/26 SP Ceftriaxone, Flagyl #3 -07/24 SP ZOsyn #1 -f/u cx -Monitor CBC/CMP, temperatures -Sx, GI f/u Thank you for this consultation. Will continue to follow along with you. Discussed with RN Subjective Allergies: Coded Allergies: No Known Allergies (Unverified , 07/24/19) Subjective afebrile in 36hrs wbc improving Objective Vital Signs Last 24 Hour Vital Signs Date Time Temp Pulse Resp B/P (MAP) Pulse Ox O2 Delivery O2 Flow Rate FiO2 07/28/19 11:40 90 16 116/74 97 Nasal Cannula 3 07/28/19 11:30 75 15 116/76 96 Nasal Cannula 3 07/28/19 11:21 88 17 127/87 97 Nasal Cannula 3 07/28/19 11:17 96 21 134/81 97 Nasal Cannula 3 07/28/19 11:14 88 22 99 07/28/19 11:12 98.1 98 22 133/77 99 Simple Mask 6 07/28/19 09:00 Room Air 07/28/19 08:00 97.4 76 20 121/82 (95) 96 07/28/19 04:50 97.5 71 15 121/75 (90) 71 07/28/19 00:00 97.9 81 16 111/82 (92) 96 07/27/19 21:00 Room Air 07/27/19 20:41 82 18 98 Room Air 21 87 18 94 07/27/19 20:41 87 18 94 Room Air 21 07/27/19 20:00 98.3 93 17 127/78 (94) 93 07/27/19 16:00 97.8 82 18 134/81 (98) Height (Feet): 6 Height (Inches): 1.00 Weight (Pounds): 154 Objective General Appearance: WD/WN, no apparent distress Lines, tubes and drains: peripheral HEENT: normocephalic, atraumatic, anicteric Neck: non-tender, normal alignment Respiratory/Chest: chest wall non-tender, lungs clear Cardiovascular/Chest: normal peripheral pulses Abdomen: normal bowel sounds Microbiology Date/Time Source Procedure Growth Status 07/26/19 14:55 Blood Blood Culture - Preliminary NO GROWTH AFTER 24 HOURS Resulted 07/26/19 14:45 Blood Blood Culture - Preliminary NO GROWTH AFTER 24 HOURS Resulted Laboratory Tests Test 07/28/19 05:10 White Blood Count 12.8 K/UL (4.8-10.8) H Red Blood Count 4.02 M/UL (4.70-6.10) L Hemoglobin 13.0 G/DL (14.2-18.0) L Hematocrit 37.6 % (42.0-52.0) L Mean Corpuscular Volume 94 FL (80-99) Mean Corpuscular Hemoglobin 32.4 PG (27.0-31.0) H Mean Corpuscular Hemoglobin Concent 34.7 G/DL (32.0-36.0) Red Cell Distribution Width 11.0 % (11.6-14.8) L Platelet Count 274 K/UL (150-450) Mean Platelet Volume 6.0 FL (6.5-10.1) L Neutrophils (%) (Auto) 76.2 % (45.0-75.0) H Lymphocytes (%) (Auto) 14.2 % (20.0-45.0) L Monocytes (%) (Auto) 8.4 % (1.0-10.0) Eosinophils (%) (Auto) 0.7 % (0.0-3.0) Basophils (%) (Auto) 0.5 % (0.0-2.0) Prothrombin Time 10.5 SEC (9.30-11.50) Prothromb Time International Ratio 1.0 (0.9-1.1) Activated Partial Thromboplast Time 34 SEC (23-33) H Sodium Level 139 MMOL/L (136-145) Potassium Level 3.9 MMOL/L (3.5-5.1) Chloride Level 102 MMOL/L (98-107) Carbon Dioxide Level 27 MMOL/L (21-32) Anion Gap 10 mmol/L (5-15) Blood Urea Nitrogen 13 mg/dL (7-18) Creatinine 1.0 MG/DL (0.55-1.30) Estimat Glomerular Filtration Rate > 60 mL/min (>60) Glucose Level 101 MG/DL (74-106) Calcium Level 8.7 MG/DL (8.5-10.1) Amylase Level 159 U/L (25-115) H Lipase 931 U/L (73-393) H Current Medications Medications (Trade) Dose Ordered Sig/Mckenzie Route PRN Reason Start Time Stop Time Status Last Admin Dose Admin Acetaminophen (Tylenol) 650 mg Q6H PRN ORAL Mild Pain (Pain Scale 1-3) 07/28/19 11:45 08/27/19 11:44 Acetaminophen/ Hydrocodone Bitart ([place] 10/325) 1 tab Q4H PRN ORAL Severe Pain (Pain Scale 7-10) 07/28/19 11:45 08/04/19 11:44 Acetaminophen/ Hydrocodone Bitart ([place] 5/325) 1 tab Q4H PRN ORAL Moderate Pain (Pain Scale 4-6) 07/28/19 11:45 08/04/19 11:44 Al Hydroxide/Mg Hydroxide (Mylanta) 15 ml Q6H PRN ORAL DYSPEPSIA 07/28/19 11:45 08/27/19 11:44 Albuterol/ Ipratropium (Albuterol/ Ipratropium) 3 ml Q4H PRN HHN Shortness of Breath 07/25/19 16:26 07/30/19 16:25 07/27/19 20:41 Clonidine HCl (Catapres Tab) 0.1 mg Q4H PRN ORAL SBP > 160 07/26/19 07:00 08/25/19 06:59 Diphenhydramine HCl (Benadryl) 25 mg Q15M PRN IVP Itching 07/28/19 10:45 07/28/19 16:00 Diphenhydramine HCl (Benadryl) 25 mg Q8H PRN ORAL Itching/Pruritis 07/28/19 11:45 08/27/19 11:44 Docusate Sodium (Colace) 100 mg TWICE A DAY ORAL 07/28/19 18:00 08/27/19 17:59 Heparin Sodium (Porcine) (Heparin 5000 units/ml) 5,000 units EVERY 12 HOURS SUBQ 07/25/19 21:00 08/23/19 08:59 07/27/19 21:02 Hydromorphone HCl (Dilaudid) 0.5 mg Q5M PRN IVP Severe Pain (Pain Scale 7-10) 07/28/19 10:45 07/28/19 16:00 Ketorolac Tromethamine (Toradol 30mg) 30 mg Q1H PRN IV Severe Breakthru Pain (>7) 07/28/19 10:45 07/28/19 16:00 Lactated Ringer's 1,000 ml @ 10 mls/hr Q24H IVLG 07/28/19 10:40 07/28/19 16:00 Magnesium Hydroxide (Mom) 30 ml BIDPRN PRN ORAL Constipation 07/28/19 11:45 08/27/19 11:44 Meperidine HCl (Demerol) 25 mg Q15M PRN IV chills 07/28/19 10:45 07/28/19 16:00 Morphine Sulfate (Morphine Sulfate) 2 mg Q4H PRN IVP Severe Pain (Pain Scale 7-10) 07/25/19 16:45 07/31/19 08:44 07/28/19 03:52 Nitroglycerin (Ntg) 0.4 mg Q5MIN X 3 DOSES PRN SL Prn Chest Pain 07/25/19 16:30 08/23/19 08:44 Ondansetron HCl (Zofran) 4 mg Q1H PRN IVP Nausea & Vomiting 07/28/19 10:45 07/28/19 16:00 Ondansetron HCl (Zofran) 4 mg Q6H PRN IVP Nausea & Vomiting 07/25/19 16:27 08/24/19 16:26 07/25/19 21:28 Ondansetron HCl (Zofran) 4 mg Q6H PRN IVP Nausea & Vomiting 07/28/19 11:45 08/27/19 11:44 Pantoprazole (Protonix) 40 mg Q12HR IV 07/25/19 21:00 08/23/19 08:59 07/27/19 21:02 Piperacillin Sod/ Tazobactam Sod 3.375 gm/Sodium Chloride 110 ml @ 27.5 mls/hr EVERY 8 HOURS IVPB 07/26/19 14:00 07/31/19 13:59 07/28/19 06:08 Polyethylene Glycol (Miralax) 17 gm DAILYPRN PRN ORAL Constipation 07/25/19 16:27 08/24/19 16:26 Sodium Chloride 1,000 ml @ 75 mls/hr [id number] IV 07/25/19 16:26 08/24/19 16:25 07/27/19 22:00 Sucralfate (Carafate) 1 gm FOUR TIMES A DAY ORAL 07/25/19 18:00 08/23/19 08:59 07/27/19 21:02 Temazepam (Restoril) 15 mg HSPRN PRN ORAL Insomnia 07/25/19 21:00 07/31/19 20:59 Georgina Fields M.D. Jul 28, 2019 12:18
--- NOTE | 2019-07-28 12:20 | NUR ---
NURSE NOTES: PATIENT RETURNED FROM SURGERY ON BED. AOX4. ABDOMINAL SURGICAL ASSESSED; C/D/I. DENIES PAIN. REPORT RECEIVED FROM TERRELL METALWORKER. BED IN LOW AND LOCKED POSITION. CALL LIGHT WITHIN REACH. PATIENT INSTRUCTED TO CALL FOR HELP. VERBALIZED UNDERSTANDING.
[2019-07-28] MEDS: Pantoprazole Inj IV SCH ×2 (12:26→21:07)
[2019-07-28] MEDS: Sucralfate 1gm tab ORAL SCH ×4 (12:26→21:07)
--- NOTE | 2019-07-28 15:22 | NUR ---
NURSE NOTES: PATIENT DOING VERY WELL POST-OPERATIVELY.DENIES PAIN, TOLERATING REGULAR DIET. VSS.AFEBRILE. CALL LIGHT WITHIN REACH.
--- NOTE | 2019-07-28 16:56 | Internal Med Progress Note ---
Subjective Date of Service: Jul 28, 2019 Physician Name SamanthaIssa Attending Physician Wan Triplett MD Current Medications Medications (Trade) Dose Ordered Sig/Mckenzie Route PRN Reason Start Time Stop Time Status Last Admin Dose Admin Acetaminophen (Tylenol) 650 mg Q6H PRN ORAL Mild Pain (Pain Scale 1-3) 07/28/19 11:45 08/27/19 11:44 Acetaminophen/ Hydrocodone Bitart ([place] 10/325) 1 tab Q4H PRN ORAL Severe Pain (Pain Scale 7-10) 07/28/19 11:45 08/04/19 11:44 Acetaminophen/ Hydrocodone Bitart ([place] 5/325) 1 tab Q4H PRN ORAL Moderate Pain (Pain Scale 4-6) 07/28/19 11:45 08/04/19 11:44 Al Hydroxide/Mg Hydroxide (Mylanta) 15 ml Q6H PRN ORAL DYSPEPSIA 07/28/19 11:45 08/27/19 11:44 Albuterol/ Ipratropium (Albuterol/ Ipratropium) 3 ml Q4H PRN HHN Shortness of Breath 07/25/19 16:26 07/30/19 16:25 07/27/19 20:41 Clonidine HCl (Catapres Tab) 0.1 mg Q4H PRN ORAL SBP > 160 07/26/19 07:00 08/25/19 06:59 Diphenhydramine HCl (Benadryl) 25 mg Q8H PRN ORAL Itching/Pruritis 07/28/19 11:45 08/27/19 11:44 Docusate Sodium (Colace) 100 mg TWICE A DAY ORAL 07/28/19 18:00 08/27/19 17:59 Heparin Sodium (Porcine) (Heparin 5000 units/ml) 5,000 units EVERY 12 HOURS SUBQ 07/25/19 21:00 08/23/19 08:59 07/27/19 21:02 Magnesium Hydroxide (Mom) 30 ml BIDPRN PRN ORAL Constipation 07/28/19 11:45 08/27/19 11:44 Morphine Sulfate (Morphine Sulfate) 2 mg Q4H PRN IVP Severe Pain (Pain Scale 7-10) 07/25/19 16:45 07/31/19 08:44 07/28/19 03:52 Nitroglycerin (Ntg) 0.4 mg Q5MIN X 3 DOSES PRN SL Prn Chest Pain 07/25/19 16:30 08/23/19 08:44 Ondansetron HCl (Zofran) 4 mg Q6H PRN IVP Nausea & Vomiting 07/25/19 16:27 08/24/19 16:26 07/25/19 21:28 Ondansetron HCl (Zofran) 4 mg Q6H PRN IVP Nausea & Vomiting 07/28/19 11:45 08/27/19 11:44 Pantoprazole (Protonix) 40 mg Q12HR IV 07/25/19 21:00 08/23/19 08:59 07/28/19 12:26 Piperacillin Sod/ Tazobactam Sod 3.375 gm/Sodium Chloride 110 ml @ 27.5 mls/hr EVERY 8 HOURS IVPB 07/26/19 14:00 07/31/19 13:59 07/28/19 14:07 Polyethylene Glycol (Miralax) 17 gm DAILYPRN PRN ORAL Constipation 07/25/19 16:27 08/24/19 16:26 Sodium Chloride 1,000 ml @ 75 mls/hr [id number] IV 07/25/19 16:26 08/24/19 16:25 07/28/19 12:26 Sucralfate (Carafate) 1 gm FOUR TIMES A DAY ORAL 07/25/19 18:00 08/23/19 08:59 07/28/19 12:26 Temazepam (Restoril) 15 mg HSPRN PRN ORAL Insomnia 07/25/19 21:00 07/31/19 20:59 Allergies: Coded Allergies: No Known Allergies (Unverified , 07/24/19) ROS Limited/Unobtainable: No Constitutional: Reports: no symptoms HEENT: Reports: no symptoms Cardiovascular: Reports: no symptoms Respiratory: Reports: no symptoms Gastrointestinal/Abdominal: Reports: abdominal pain Genitourinary: Reports: no symptoms Neurologic/Psychiatric: Reports: no symptoms Subjective 54 YO M admitted with epigastric pain. Now acute cholecystitis and cholelithiasis. Cover for Int Steven-Dr Triplett. S/P laparoscopic cholecystectomy 07/28/19 Objective Last Vital Signs Date Time Temp Pulse Resp B/P (MAP) Pulse Ox O2 Delivery O2 Flow Rate FiO2 07/28/19 16:00 98.0 85 19 130/85 (100) 95 07/28/19 11:55 Nasal Cannula 3 07/27/19 20:41 21 Laboratory Tests Test 07/28/19 05:10 White Blood Count 12.8 K/UL (4.8-10.8) H Red Blood Count 4.02 M/UL (4.70-6.10) L Hemoglobin 13.0 G/DL (14.2-18.0) L Hematocrit 37.6 % (42.0-52.0) L Mean Corpuscular Volume 94 FL (80-99) Mean Corpuscular Hemoglobin 32.4 PG (27.0-31.0) H Mean Corpuscular Hemoglobin Concent 34.7 G/DL (32.0-36.0) Red Cell Distribution Width 11.0 % (11.6-14.8) L Platelet Count 274 K/UL (150-450) Mean Platelet Volume 6.0 FL (6.5-10.1) L Neutrophils (%) (Auto) 76.2 % (45.0-75.0) H Lymphocytes (%) (Auto) 14.2 % (20.0-45.0) L Monocytes (%) (Auto) 8.4 % (1.0-10.0) Eosinophils (%) (Auto) 0.7 % (0.0-3.0) Basophils (%) (Auto) 0.5 % (0.0-2.0) Prothrombin Time 10.5 SEC (9.30-11.50) Prothromb Time International Ratio 1.0 (0.9-1.1) Activated Partial Thromboplast Time 34 SEC (23-33) H Sodium Level 139 MMOL/L (136-145) Potassium Level 3.9 MMOL/L (3.5-5.1) Chloride Level 102 MMOL/L (98-107) Carbon Dioxide Level 27 MMOL/L (21-32) Anion Gap 10 mmol/L (5-15) Blood Urea Nitrogen 13 mg/dL (7-18) Creatinine 1.0 MG/DL (0.55-1.30) Estimat Glomerular Filtration Rate > 60 mL/min (>60) Glucose Level 101 MG/DL (74-106) Calcium Level 8.7 MG/DL (8.5-10.1) Amylase Level 159 U/L (25-115) H Lipase 931 U/L (73-393) H Microbiology Date/Time Source Procedure Growth Status 07/26/19 14:55 Blood Blood Culture - Preliminary NO GROWTH AFTER 24 HOURS Resulted 07/26/19 14:45 Blood Blood Culture - Preliminary NO GROWTH AFTER 24 HOURS Resulted Intake and Output 07/27/19 07/28/19 19:00 07:00 Intake Total 1335.0 ml 1340.0 ml Balance 1335.0 ml 1340.0 ml Intake Oral 1000 ml 480 ml IV Total 335.0 ml 860.0 ml # Voids 1 Objective PHYSICAL EXAMINATION: GENERAL: The patient is awake, responsive, no acute distress. HEENT: Head and neck examination, pupils are reactive to light. Extraocular movements intact. NECK: Supple. No JVD. LUNGS: Good air entry. No wheezing or rales. HEART: S1 and S2. Regular rhythm. No murmur or gallops. ABDOMEN: Soft. Tenderness in the epigastric area. No rebound tenderness. No fluid shift. The patient has a hernia on the left side, left groin inguinal area and umbilical hernia was noted. EXTREMITIES: No cyanosis, clubbing, edema NEUROLOGIC: Cranial nerves II through XII grossly normal. Motor is 5/5 in all extremities. Gait is intact. RECTAL: Refused and deferred. GENITOURINARY: Refused and deferred. PSYCHIATRIC: Mood and affect is intact Assessment/Plan Assessment/Plan ASSESSMENT: 1. Abdominal pain, 2. leukocytosis 3. acute cholecystitis and cholelithiasis. HIDA=C/W cholecystitis 4. Left inguinal hernia. 5. Umbilical hernia. 6. Gallstone pancreatitis PLAN: 1. Admit the patient to monitored floor. 2. tolerating clear liquid diet 3. antibiotics = zosyn 4. Code status is Full Code. 5. DVT prophylaxis=Heparin subcutaneous. 6. surgical consultation with Dr. Farooq; S/P laparoscopic cholecystectomy 07/28/19 7. GI consultation with 8. Infectious Disease consultation with Issa Kaminski MD Jul 28, 2019 16:56
[2019-07-28] MEDS: Docusate 100mg cap ORAL SCH (17:53)
--- NOTE | 2019-07-28 19:23 | NUR ---
HAND-OFF: Report given to JOSE VLAE RN.
--- NOTE | 2019-07-28 20:00 | Operative Note - Dictated ---
DATE OF OPERATION: 07/28/2019 PREOPERATIVE DIAGNOSES: 1. Acute cholecystitis. 2. Gallstone pancreatitis. POSTOPERATIVE DIAGNOSES: 1. Acute cholecystitis. 2. Gallstone pancreatitis. OPERATION PERFORMED: Laparoscopic cholecystectomy. ATTENDING SURGEON: Shelton Farooq M.D. OPTICAL DESIGNER: None. ANESTHESIOLOGIST: Pawel Cuenca M.D. ANESTHESIA: General GETA plus local. ESTIMATED BLOOD LOSS: Minimal. IV FLUIDS: Please see anesthesia records. COMPLICATIONS: None. DRAINS: None. COUNTS: Sponge and needle count correct x2. SPECIMENS: Gallbladder and stones sent to pathology for review. ANTIBIOTICS: The patient on scheduled IV antibiotics for acute active inflammatory process. INDICATIONS FOR PROCEDURE: This is a 54-year-old male who presented to [facility] Emergency Department complaining of worsening right upper quadrant epigastric abdominal pain. He was identified to have significant leukocytosis, elevated amylase and lipase throughout his hospitalization course. He had a ultrasound which identified cholelithiasis and a positive [place] suggestive of acute cholecystitis. A CT of the abdomen and pelvis demonstrating distended gallbladder wall thickening and pericholecystic inflammatory changes as well as HIDA scan identifying nonvisualization of the gallbladder. The patient was appropriately taken to the operating room for surgical intervention which was indicated and recommended. Risks, benefits, alternatives, laparoscopic cholecystectomy, possible open were discussed with the patient in detail, expressed understanding and consented to the surgery OPERATIVE NOTE: The patient was taken to the operating room and placed on the operating table in supine position with bilateral arms out. All bony prominences were well padded. SCDs were placed. Preoperative time-out taken to identify the patient, procedure, operative staff, and surgical staff. General anesthesia was induced and the patient was intubated. The abdomen was clipped, prepped, draped in sterile fashion. An infraumbilical incision was made using a fresh #11 scalpel and carried down to fascia. The patient had a small infraumbilical ventral hernia which was reduced and utilized to enter the abdomen. A 12 mm Carmela port was inserted into the abdomen and insufflated to 15 mmHg. The patient tolerated the insufflation well. Laparoscope was inserted and the abdomen was inspected. Secondary trocars placed under direct visualization beginning with a 12 mm subxiphoid followed by two 5 mm right subcostal. The gallbladder was identified with omental thickening and attachments. Gentle dissection was carried and gallbladder was from inflamed omentum. The dome of the gallbladder was grasped using most lateral port and retracted over the liver. The gallbladder was clearly identified to be thickened with edema and indicative of chronic and acute cholecystitis. The gallbladder was retracted over the liver and the infundibulum was identified. Gentle dissection around the infundibulum identified both the cystic duct and artery. The cystic artery was doubly clipped and divided. The cystic duct was then doubly clipped and divided. The gallbladder was taken off the liver attachments using electrocautery. The gallbladder and contained stones were placed in the endoscopic retrieval bag and removed from the abdomen, sent to pathology for review. Of note, the fluid in the gallbladder was clearly identified to be hydrops as it was clear and mucousy. The liver bed was evaluated and hemostasis obtained using electrocautery. The clips on the cystic duct stump and cystic artery stump were identified, noted to be intact without leakage of bile or bleeding. The right upper quadrant was irrigated and suctioned until clear. No abnormalities were noted. At this time, we completed the conclusion of our procedure. Secondary trocars removed under direct visualization followed by the umbilical trocar site. The umbilical trocar site fascia and the epigastric port site fascia were reapproximated using 0 Vicryl [id number] sutures. The skin incisions were reapproximated using 4-0 Monocryl subcuticular interrupted sutures. Benzoin, Steri-Strips and dressings were applied. The patient tolerated the procedure well, was extubated, and taken to postanesthetic care in stable condition. Shelton Farooq M.D. DR: Lorelei JOB#: [id number] CC:
--- NOTE | 2019-07-28 22:21 | NUR ---
NURSE NOTES: Received patient awake,alert,verbal,resting in bed without any complaints.
[2019-07-29 00:05] VITALS: BP 137/84
--- NOTE | 2019-07-29 00:10 | NUR ---
NURSE NOTES: Patient still did not urinate,Dr Farooq informed, awaitng call back.
--- NOTE | 2019-07-29 01:30 | NUR ---
NURSE NOTES: Patient urinated already with 220 ml output.
[2019-07-29] MEDS: HYDROcodone/Acetamin 10/325 tab ORAL PRN ×3 (03:10→18:29)
[2019-07-29] MEDS: Albuterol/Ipratropium 3ml neb HHN PRN (03:12)
[2019-07-29 04:00] VITALS: BP 141/83
[2019-07-29] MEDS: Piperacillin/Tazobactam 3.375 GM in NS 110 ML IVPB SCH ×3 (04:33→21:24)
[2019-07-29 05:12] LABS: BASOPHILS % (AUTO) 0.7 % (0.0-2.0); EOSINOPHILS % (AUTO) 0.2 % (0.0-3.0); HEMATOCRIT 33.5 % (42.0-52.0); HEMOGLOBIN 11.7 G/DL (14.2-18.0); LYMPHOCYTES % (AUTO) 10.7 % (20.0-45.0); MEAN CORPUSCULAR VOLUME 93 FL (80-99); MONOCYTES % (AUTO) 8.8 % (1.0-10.0); NEUTROPHILS % (AUTO) 79.6 % (45.0-75.0); PLATELET COUNT 277 K/UL (150-450); RED BLOOD COUNT 3.59 M/UL (4.70-6.10); RED CELL DISTRIBUTION WIDTH 11.3 % (11.6-14.8)
--- NOTE | 2019-07-29 05:23 | NUR ---
NURSE NOTES: Dr Farooq called back and ordered straight catheter if symptomatic, and told him that the patient urinated already and he is asymptomatic. Dr Farooq said chaz.
[2019-07-29 05:34] LABS: ALANINE AMINOTRANSFERASE 37 U/L (12-78); ALBUMIN/GLOBULIN RATIO 0.5 (1.0-2.7); ALKALINE PHOSPHATASE 82 U/L (46-116); AMYLASE 156 U/L (25-115); ANION GAP 12 mmol/L (5-15); ASPARTATE AMINO TRANSFERASE 37 U/L (15-37); BILIRUBIN,TOTAL 0.7 MG/DL (0.2-1.0); BLOOD UREA NITROGEN 12 mg/dL (7-18); CALCIUM 7.9 MG/DL (8.5-10.1); CARBON DIOXIDE 23 MMOL/L (21-32); CHLORIDE 103 MMOL/L (98-107); CREATININE 0.9 MG/DL (0.55-1.30); POTASSIUM 3.6 MMOL/L (3.5-5.1); SODIUM 138 MMOL/L (136-145)
[2019-07-29] MEDS: Morphine Sulfate 2mg/ml Inj(IV/IM USE ONLY) IVP PRN (07:56)
[2019-07-29 08:00] VITALS: BP 138/85
--- NOTE | 2019-07-29 08:00 | NUR ---
NURSE NOTES: Received report from Carole LOGAN. Patient is awake and oriented, reporting abdominal discomfort rated 7/10 at surgical site, medicated per order and will reassess. IVF and antibiotic running per order, IV intact and patent. Patient eating breakfast and tolerating well, reports he is passing gas. Surgical site clean and dry, intact blister noted to left of umbilicus under tegaderm dressing. Patient updated on plan of care for the day. Side rails upx2, bed low and locked, call light in reach. Will continue to monitor.
--- NOTE | 2019-07-29 08:52 | General Progress Note ---
Assessment/Plan Problem List: (1) Diverticulitis ICD Codes: K57.92 - Diverticulitis of intestine, part unspecified, without perforation or abscess without bleeding SNOMED: [id number] Status: unchanged Assessment/Plan: Assessment/Plan Problems: (1) Abdominal pain ICD Codes: R10.9 - Unspecified abdominal pain SNOMED: 47350564 (2) Cholecystitis Assessment/Plan Assessment - RUQ pain - abnormal GB imaging, possible cholecystitis - diverticulosis, possible diverticulitis Recommendations POD #1cholecystectomy fu surg recs pain control abx fu labs Subjective ROS Limited/Unobtainable: Yes Allergies: Coded Allergies: No Known Allergies (Unverified , 07/24/19) Objective Last 24 Hour Vital Signs Date Time Temp Pulse Resp B/P (MAP) Pulse Ox O2 Delivery O2 Flow Rate FiO2 07/29/19 08:00 98.8 85 16 138/85 (102) 97 07/29/19 04:00 98.8 91 18 141/83 (102) 97 07/29/19 03:40 99.0 07/29/19 03:12 98 18 93 Room Air 21 98 18 95 07/29/19 00:05 99.0 96 18 137/84 (101) 97 07/28/19 23:49 99.0 07/28/19 20:48 82 18 96 Room Air 21 07/28/19 20:24 Room Air 07/28/19 20:04 100.0 89 18 137/84 (101) 97 07/28/19 16:00 98.0 85 19 130/85 (100) 95 07/28/19 14:11 94 20 141/99 (113) 96 07/28/19 13:26 98.2 86 18 129/84 (99) 96 07/28/19 12:30 97.6 87 18 132/77 (95) 95 07/28/19 12:00 98.7 82 18 131/72 (91) 95 07/28/19 11:55 98.3 86 15 122/78 98 Nasal Cannula 3 07/28/19 11:40 90 16 116/74 97 Nasal Cannula 3 07/28/19 11:30 75 15 116/76 96 Nasal Cannula 3 07/28/19 11:21 88 17 127/87 97 Nasal Cannula 3 07/28/19 11:17 96 21 134/81 97 Nasal Cannula 3 07/28/19 11:14 88 22 99 07/28/19 11:12 98.1 98 22 133/77 99 Simple Mask 6 07/28/19 09:00 Room Air Intake and Output 07/28/19 07/29/19 19:00 07:00 Intake Total 2485.0 ml 1825.0 ml Output Total 50 ml Balance 2435.0 ml 1825.0 ml Intake Oral 600 ml 800 ml IV Total 1885.0 ml 1025.0 ml Output Estimated Blood Loss 50 ml # Voids 2 2 Laboratory Tests 07/29/19 04:27: White Blood Count 14.0H, Red Blood Count 3.59L, Hemoglobin 11.7L, Hematocrit 33.5L, Mean Corpuscular Volume 93, Mean Corpuscular Hemoglobin 32.6H, Mean Corpuscular Hemoglobin Concent 35.0, Red Cell Distribution Width 11.3L, Platelet Count 277, Mean Platelet Volume 5.1L, Neutrophils (%) (Auto) 79.6H, Lymphocytes (%) (Auto) 10.7L, Monocytes (%) (Auto) 8.8, Eosinophils (%) (Auto) 0.2, Basophils (%) (Auto) 0.7, Sodium Level 138, Potassium Level 3.6, Chloride Level 103, Carbon Dioxide Level 23, Anion Gap 12, Blood Urea Nitrogen 12, Creatinine 0.9, Estimat Glomerular Filtration Rate > 60, Glucose Level 114H, Calcium Level 7.9L, Total Bilirubin 0.7, Aspartate Amino Transf (AST/SGOT) 37, Alanine Aminotransferase (ALT/SGPT) 37, Alkaline Phosphatase 82, Total Protein 6.4, Albumin 2.0L, Globulin 4.4, Albumin/Globulin Ratio 0.5L, Amylase Level 156H , Lipase 934H Height (Feet): 6 Height (Inches): 1.00 Weight (Pounds): 158 General Appearance: alert EENT: normal ENT inspection Neck: supple Cardiovascular: normal rate Respiratory/Chest: decreased breath sounds Abdomen: other - post surgical Extremities: non-tender Manish Sotelo MD Jul 29, 2019 08:52
[2019-07-29] MEDS: Pantoprazole Inj IV SCH ×2 (08:59→21:23)
[2019-07-29] MEDS: Sucralfate 1gm tab ORAL SCH ×4 (08:59→21:23)
[2019-07-29] MEDS: Docusate 100mg cap ORAL SCH ×2 (08:59→18:28)
[2019-07-29] MEDS: Heparin 5000 units/ml inj SUBQ SCH ×2 (09:00→21:25)
--- NOTE | 2019-07-29 10:34 | 48 Hour Post Anesthesia Eval ---
Post Anesthesia Evaluation Procedure: Laparoscopic cholecystectomy Date of Evaluation: Jul 29, 2019 Time of Evaluation: 10:33 Blood Pressure Systolic: 138 0: 82 Pulse Rate: 68 Respiratory Rate: 20 Temperature (Fahrenheit): 97.6 O2 Sat by Pulse Oximetry: 98 Airway: patent Nausea: No Vomiting: No Pain Intensity: 3 Hydration Status: adequate Cardiopulmonary Status: stable Mental Status/LOC: patient returned to baseline Follow-up Care/Observations: n/a Post-Anesthesia Complications: none Follow-up care needed: ready to discharge Pawel Cuenca MD Jul 29, 2019 10:34
--- NOTE | 2019-07-29 11:36 | Internal Med Progress Note ---
Subjective Date of Service: Jul 29, 2019 Physician Name Issa Singh Attending Physician Wan Triplett MD Current Medications Medications (Trade) Dose Ordered Sig/Mckenzie Route PRN Reason Start Time Stop Time Status Last Admin Dose Admin Acetaminophen (Tylenol) 650 mg Q6H PRN ORAL Mild Pain (Pain Scale 1-3) 07/28/19 11:45 08/27/19 11:44 Acetaminophen/ Hydrocodone Bitart ([place] 10/325) 1 tab Q4H PRN ORAL Severe Pain (Pain Scale 7-10) 07/28/19 11:45 08/04/19 11:44 07/29/19 03:10 Acetaminophen/ Hydrocodone Bitart ([place] 5/325) 1 tab Q4H PRN ORAL Moderate Pain (Pain Scale 4-6) 07/28/19 11:45 08/04/19 11:44 Al Hydroxide/Mg Hydroxide (Mylanta) 15 ml Q6H PRN ORAL DYSPEPSIA 07/28/19 11:45 08/27/19 11:44 Albuterol/ Ipratropium (Albuterol/ Ipratropium) 3 ml Q4H PRN HHN Shortness of Breath 07/25/19 16:26 07/30/19 16:25 07/29/19 03:12 Clonidine HCl (Catapres Tab) 0.1 mg Q4H PRN ORAL SBP > 160 07/26/19 07:00 08/25/19 06:59 Diphenhydramine HCl (Benadryl) 25 mg Q8H PRN ORAL Itching/Pruritis 07/28/19 11:45 08/27/19 11:44 Docusate Sodium (Colace) 100 mg TWICE A DAY ORAL 07/28/19 18:00 08/27/19 17:59 07/29/19 08:59 Heparin Sodium (Porcine) (Heparin 5000 units/ml) 5,000 units EVERY 12 HOURS SUBQ 07/25/19 21:00 08/23/19 08:59 07/29/19 09:00 Magnesium Hydroxide (Mom) 30 ml BIDPRN PRN ORAL Constipation 07/28/19 11:45 08/27/19 11:44 Morphine Sulfate (Morphine Sulfate) 2 mg Q4H PRN IVP Severe Pain (Pain Scale 7-10) 07/25/19 16:45 07/31/19 08:44 07/29/19 07:56 Nitroglycerin (Ntg) 0.4 mg Q5MIN X 3 DOSES PRN SL Prn Chest Pain 07/25/19 16:30 08/23/19 08:44 Ondansetron HCl (Zofran) 4 mg Q6H PRN IVP Nausea & Vomiting 07/25/19 16:27 08/24/19 16:26 07/25/19 21:28 Ondansetron HCl (Zofran) 4 mg Q6H PRN IVP Nausea & Vomiting 07/28/19 11:45 08/27/19 11:44 Pantoprazole (Protonix) 40 mg Q12HR IV 07/25/19 21:00 08/23/19 08:59 07/29/19 08:59 Piperacillin Sod/ Tazobactam Sod 3.375 gm/Sodium Chloride 110 ml @ 27.5 mls/hr EVERY 8 HOURS IVPB 07/26/19 14:00 07/31/19 13:59 07/29/19 04:33 Polyethylene Glycol (Miralax) 17 gm DAILYPRN PRN ORAL Constipation 07/25/19 16:27 08/24/19 16:26 Sodium Chloride 1,000 ml @ 75 mls/hr [id number] IV 07/25/19 16:26 08/24/19 16:25 07/28/19 21:08 Sucralfate (Carafate) 1 gm FOUR TIMES A DAY ORAL 07/25/19 18:00 08/23/19 08:59 07/29/19 08:59 Temazepam (Restoril) 15 mg HSPRN PRN ORAL Insomnia 07/25/19 21:00 07/31/19 20:59 Allergies: Coded Allergies: No Known Allergies (Unverified , 07/24/19) ROS Limited/Unobtainable: No Constitutional: Reports: no symptoms HEENT: Reports: no symptoms Cardiovascular: Reports: no symptoms Respiratory: Reports: no symptoms Gastrointestinal/Abdominal: Reports: abdominal pain Genitourinary: Reports: no symptoms Neurologic/Psychiatric: Reports: no symptoms Subjective 54 YO M admitted with epigastric pain. Now acute cholecystitis and cholelithiasis. Cover for Int Med-Dr Triplett. S/P laparoscopic cholecystectomy 07/28/19 Objective Last Vital Signs Date Time Temp Pulse Resp B/P (MAP) Pulse Ox O2 Delivery O2 Flow Rate FiO2 07/29/19 10:34 68 20 98 07/29/19 09:00 Room Air 07/29/19 08:00 98.8 138/85 (102) 07/29/19 03:12 21 07/28/19 11:55 3 Laboratory Tests Test 07/29/19 04:27 White Blood Count 14.0 K/UL (4.8-10.8) H Red Blood Count 3.59 M/UL (4.70-6.10) L Hemoglobin 11.7 G/DL (14.2-18.0) L Hematocrit 33.5 % (42.0-52.0) L Mean Corpuscular Volume 93 FL (80-99) Mean Corpuscular Hemoglobin 32.6 PG (27.0-31.0) H Mean Corpuscular Hemoglobin Concent 35.0 G/DL (32.0-36.0) Red Cell Distribution Width 11.3 % (11.6-14.8) L Platelet Count 277 K/UL (150-450) Mean Platelet Volume 5.1 FL (6.5-10.1) L Neutrophils (%) (Auto) 79.6 % (45.0-75.0) H Lymphocytes (%) (Auto) 10.7 % (20.0-45.0) L Monocytes (%) (Auto) 8.8 % (1.0-10.0) Eosinophils (%) (Auto) 0.2 % (0.0-3.0) Basophils (%) (Auto) 0.7 % (0.0-2.0) Sodium Level 138 MMOL/L (136-145) Potassium Level 3.6 MMOL/L (3.5-5.1) Chloride Level 103 MMOL/L (98-107) Carbon Dioxide Level 23 MMOL/L (21-32) Anion Gap 12 mmol/L (5-15) Blood Urea Nitrogen 12 mg/dL (7-18) Creatinine 0.9 MG/DL (0.55-1.30) Estimat Glomerular Filtration Rate > 60 mL/min (>60) Glucose Level 114 MG/DL (74-106) H Calcium Level 7.9 MG/DL (8.5-10.1) L Total Bilirubin 0.7 MG/DL (0.2-1.0) Aspartate Amino Transf (AST/SGOT) 37 U/L (15-37) Alanine Aminotransferase (ALT/SGPT) 37 U/L (12-78) Alkaline Phosphatase 82 U/L (46-116) Total Protein 6.4 G/DL (6.4-8.2) Albumin 2.0 G/DL (3.4-5.0) L Globulin 4.4 g/dL Albumin/Globulin Ratio 0.5 (1.0-2.7) L Amylase Level 156 U/L (25-115) H Lipase 934 U/L (73-393) H Microbiology Date/Time Source Procedure Growth Status 07/26/19 14:55 Blood Blood Culture - Preliminary NO GROWTH AFTER 48 HOURS Resulted 07/26/19 14:45 Blood Blood Culture - Preliminary NO GROWTH AFTER 48 HOURS Resulted Intake and Output 07/28/19 07/29/19 19:00 07:00 Intake Total 2485.0 ml 1825.0 ml Output Total 50 ml Balance 2435.0 ml 1825.0 ml Intake Oral 600 ml 800 ml IV Total 1885.0 ml 1025.0 ml Output Estimated Blood Loss 50 ml # Voids 2 2 Objective PHYSICAL EXAMINATION: GENERAL: The patient is awake, responsive, no acute distress. HEENT: Head and neck examination, pupils are reactive to light. Extraocular movements intact. NECK: Supple. No JVD. LUNGS: Good air entry. No wheezing or rales. HEART: S1 and S2. Regular rhythm. No murmur or gallops. ABDOMEN: Soft. Tenderness in the epigastric area. No rebound tenderness. No fluid shift. The patient has a hernia on the left side, left groin inguinal area and umbilical hernia was noted. EXTREMITIES: No cyanosis, clubbing, edema NEUROLOGIC: Cranial nerves II through XII grossly normal. Motor is 5/5 in all extremities. Gait is intact. RECTAL: Refused and deferred. GENITOURINARY: Refused and deferred. PSYCHIATRIC: Mood and affect is intact Assessment/Plan Assessment/Plan ASSESSMENT: 1. Abdominal pain, 2. leukocytosis 3. acute cholecystitis and cholelithiasis. HIDA=C/W cholecystitis 4. Left inguinal hernia. 5. Umbilical hernia. 6. Gallstone pancreatitis PLAN: 1. Admit the patient to monitored floor. 2. tolerating clear liquid diet 3. antibiotics = zosyn 4. Code status is Full Code. 5. DVT prophylaxis=Heparin subcutaneous. 6. surgical consultation with Dr. Farooq; S/P laparoscopic cholecystectomy 07/28/19 7. GI consultation with 8. Infectious Disease consultation with Dr. Fields 9. Advance diet to regular Issa Singh MD Jul 29, 2019 11:36
[2019-07-29 12:00] VITALS: BP 139/86
--- NOTE | 2019-07-29 13:03 | NUR ---
INSPECTOR ROUGH CASTINGSDAIRY TECHNICIAN SI; ACUTE CORONARY SYNDROME T. 98.8 HR 85 RR 16 B/P 141/83 WBC 14.0 AMYLASE 156 LIPASE 934 IS: IVF NS @ 75ML/HR ZOSYN IV MED/SURG STATUS
--- NOTE | 2019-07-29 14:54 | Surgery Progress Note ---
Surgery Progress Note Subjective Procedure Performed lap maria del carmen Additional Comments Doing well postop no acute events. Incisional pain. No nausea vomiting fever chills. Tolerating diet. Urinating well ambulatory. Objective Last 24 Hour Vital Signs Date Time Temp Pulse Resp B/P (MAP) Pulse Ox O2 Delivery O2 Flow Rate FiO2 07/29/19 12:00 99.0 83 16 139/86 (103) 97 07/29/19 10:34 68 20 98 07/29/19 09:00 Room Air 07/29/19 08:00 98.8 85 16 138/85 (102) 97 07/29/19 04:00 98.8 91 18 141/83 (102) 97 07/29/19 03:40 99.0 07/29/19 03:12 98 18 93 Room Air 21 98 18 95 07/29/19 00:05 99.0 96 18 137/84 (101) 97 07/28/19 23:49 99.0 07/28/19 20:48 82 18 96 Room Air 21 07/28/19 20:24 Room Air 07/28/19 20:04 100.0 89 18 137/84 (101) 97 07/28/19 16:00 98.0 85 19 130/85 (100) 95 I&O Intake and Output 07/28/19 07/29/19 19:00 07:00 Intake Total 2485.0 ml 1825.0 ml Output Total 50 ml Balance 2435.0 ml 1825.0 ml Intake Oral 600 ml 800 ml IV Total 1885.0 ml 1025.0 ml Output Estimated Blood Loss 50 ml # Voids 2 2 Dressing: dry Wound: clean, other - Small blister around umbilical wound from tape Cardiovascular: RSR Respiratory: clear Abdomen: soft, non-tender, present bowel sounds, non-distended Extremities: no edema, no tenderness, no cyanosis Laboratory Tests Test 07/29/19 04:27 White Blood Count 14.0 K/UL (4.8-10.8) H Red Blood Count 3.59 M/UL (4.70-6.10) L Hemoglobin 11.7 G/DL (14.2-18.0) L Hematocrit 33.5 % (42.0-52.0) L Mean Corpuscular Volume 93 FL (80-99) Mean Corpuscular Hemoglobin 32.6 PG (27.0-31.0) H Mean Corpuscular Hemoglobin Concent 35.0 G/DL (32.0-36.0) Red Cell Distribution Width 11.3 % (11.6-14.8) L Platelet Count 277 K/UL (150-450) Mean Platelet Volume 5.1 FL (6.5-10.1) L Neutrophils (%) (Auto) 79.6 % (45.0-75.0) H Lymphocytes (%) (Auto) 10.7 % (20.0-45.0) L Monocytes (%) (Auto) 8.8 % (1.0-10.0) Eosinophils (%) (Auto) 0.2 % (0.0-3.0) Basophils (%) (Auto) 0.7 % (0.0-2.0) Sodium Level 138 MMOL/L (136-145) Potassium Level 3.6 MMOL/L (3.5-5.1) Chloride Level 103 MMOL/L (98-107) Carbon Dioxide Level 23 MMOL/L (21-32) Anion Gap 12 mmol/L (5-15) Blood Urea Nitrogen 12 mg/dL (7-18) Creatinine 0.9 MG/DL (0.55-1.30) Estimat Glomerular Filtration Rate > 60 mL/min (>60) Glucose Level 114 MG/DL (74-106) H Calcium Level 7.9 MG/DL (8.5-10.1) L Total Bilirubin 0.7 MG/DL (0.2-1.0) Aspartate Amino Transf (AST/SGOT) 37 U/L (15-37) Alanine Aminotransferase (ALT/SGPT) 37 U/L (12-78) Alkaline Phosphatase 82 U/L (46-116) Total Protein 6.4 G/DL (6.4-8.2) Albumin 2.0 G/DL (3.4-5.0) L Globulin 4.4 g/dL Albumin/Globulin Ratio 0.5 (1.0-2.7) L Amylase Level 156 U/L (25-115) H Lipase 934 U/L (73-393) H Plan Problems: (1) Abdominal pain Assessment & Plan: 54-year-old male with abdominal pain. Leukocytosis. CT scan with distended gallbladder, inguinal hernia, umbilical hernia, Diverticula Afebrile hemodynamic stable labs as above CT as below States the pain is improved since admission Currently tolerating clear liquids Abdominal ultrasound noted CT noted No acute surgical intervention at this time We will monitor for improvement. If no improvement will proceed with further imaging and potentially surgery if necessary HIDA scan noted + Antibiotics as per infectious disease We will follow with recommendations thank you for allowing participate patient' s care Status post lap appendectomy. Doing well. Path noting reviewed. Still having incisional pain as anticipated. Leukocytosis. Given path findings not ready for discharge. Recommend IV antibiotics for at least 24 hours more. Needs better pain control prior to discharge We will follow with Jonathan thank you (2) Cholecystitis Assessment & Plan: * Distended gallbladder with wall thickening and mild pericholecystic inflammatory changes concerning for acute cholecystitis. Correlate clinically. Consider further imaging of the gallbladder with ultrasound or HIDA. * Left inguinal hernia containing fat and loop of sigmoid colon. No evidence to suggest associated obstruction. There is some induration of the herniated contents however. Correlate with physical exam to assess for reducibility. * Colonic diverticulosis. Mild stranding noted in the left lower quadrant which may related to the above-described hernia. If there is left lower quadrant pain the possibility of mild diverticulitis cannot be excluded. * Small fat-containing right inguinal hernia and fat-containing umbilical hernia. * Small hemangioma in the right hepatic lobe. Additional findings as above. This corresponds with the preliminary report by [facility]. Shelton Farooq Jul 29, 2019 14:54
[2019-07-29 16:00] VITALS: BP 121/77
--- NOTE | 2019-07-29 19:30 | NUR ---
NURSE NOTES: Receive a report from DESMOND Bahena. Round is done. Pt is awake and alert. No acute distress noted. Op site pain decreased 2/10 after pain medication earlier. Op sites are clean and open to the air with steri-strips. Noted redness the sites that tegarderm removed. Dr. Farooq aware of it. Will continue to monitor. Call light within reach.
--- NOTE | 2019-07-29 19:35 | NUR ---
HAND-OFF: Report given to Julissa LOGAN.
[2019-07-29 20:00] VITALS: BP 142/90
--- NOTE | 2019-07-29 21:50 | NUR ---
NURSE NOTES: Noted rash and urticaria on upper back after test yesterday. Provide Benadryl as ordered with ice bags. No respiratory distress noted. Pt does well self expectoration with whitish sputum. Encourage oral hydration and explains the importance of lung care after surgery. Pt verbalizes understanding. Provide I/S as well. Will continue to monitor.
[2019-07-30] VITALS (7 sets, daily range): BP systolic 105–151; BP diastolic 68–88
[2019-07-30] MEDS: HYDROcodone/Acetamin 10/325 tab ORAL PRN ×4 (02:51→20:07)
[2019-07-30] MEDS: Piperacillin/Tazobactam 3.375 GM in NS 110 ML IVPB SCH ×3 (05:44→22:12)
--- NOTE | 2019-07-30 05:53 | NUR ---
NURSE NOTES: Pt feels comfortable on op sites but states that when he gets up and walks to bathroom, pt feels tingling and numbness on left foot and left ingunial hernia gets bigger. And relieved discomfort and size goes back during rest. Will endorse to AM shift to follow up and report to MD. Will continue to monitor. Back area rash persists but no itching noted.
[2019-07-30 06:32] LABS: BASOPHILS % (AUTO) 0.5 % (0.0-2.0); EOSINOPHILS % (AUTO) 1.1 % (0.0-3.0); HEMATOCRIT 34.5 % (42.0-52.0); LYMPHOCYTES % (AUTO) 14.2 % (20.0-45.0); MEAN CORPUSCULAR VOLUME 94 FL (80-99); MONOCYTES % (AUTO) 10.6 % (1.0-10.0); NEUTROPHILS % (AUTO) 73.6 % (45.0-75.0); PLATELET COUNT 377 K/UL (150-450); RED BLOOD COUNT 3.69 M/UL (4.70-6.10); RED CELL DISTRIBUTION WIDTH 11.3 % (11.6-14.8); WHITE BLOOD COUNT 14.6 K/UL (4.8-10.8)
[2019-07-30 07:06] LABS: ALANINE AMINOTRANSFERASE 39 U/L (12-78); ALBUMIN 2.1 G/DL (3.4-5.0); ALBUMIN/GLOBULIN RATIO 0.5 (1.0-2.7); ALKALINE PHOSPHATASE 103 U/L (46-116); AMYLASE 163 U/L (25-115); ANION GAP 10 mmol/L (5-15); ASPARTATE AMINO TRANSFERASE 28 U/L (15-37); BILIRUBIN,TOTAL 0.5 MG/DL (0.2-1.0); BLOOD UREA NITROGEN 10 mg/dL (7-18); CALCIUM 8.6 MG/DL (8.5-10.1); CARBON DIOXIDE 28 MMOL/L (21-32); CHLORIDE 104 MMOL/L (98-107); CREATININE 0.9 MG/DL (0.55-1.30); POTASSIUM 3.9 MMOL/L (3.5-5.1); SODIUM 142 MMOL/L (136-145)
--- NOTE | 2019-07-30 07:30 | NUR ---
HAND-OFF: Report given to DESMOND Alvarez.
[2019-07-30] MEDS ORDERED: Tubing IV Secondary IV ONE ×2 (07:36→14:49)
[2019-07-30] MEDS ORDERED: NS 275ml ONE (07:36)
--- NOTE | 2019-07-30 07:50 | NUR ---
NURSE NOTES: Pt is awake eating breakfast. States he only has pain when he coughs. Encouraged to place pillow on abdomen , while coughing. Call light is in reach.
[2019-07-30] MEDS: Docusate 100mg cap ORAL SCH ×2 (09:00→18:00)
[2019-07-30] MEDS: Pantoprazole Inj IV SCH ×2 (09:03→22:12)
[2019-07-30] MEDS: Sucralfate 1gm tab ORAL SCH ×4 (09:04→22:12)
[2019-07-30] MEDS: Heparin 5000 units/ml inj SUBQ SCH ×2 (09:05→22:13)
--- NOTE | 2019-07-30 10:41 | NUR ---
NURSE NOTES: Dr Hoang informed that pt has a large inguinal mass pt states it was previously in abdomen and has moved down to his inguinal area. Dr Farooq states he is aware ,
--- NOTE | 2019-07-30 11:00 | Infectious Diseases Prog Note ---
Assessment/Plan Assessment/Plan Assessment: Abdominal pain- 2ry to Acute cholecystitis Gallstone pancreatitis -07/28 SP Laparoscopic cholecystectomy --path: acute gangrenous cholecystitis, superimposed chronic cholecystitis, cholelithiasis, no malignancy -HIDA scan: Nonvisualization of the gallbladder. This is suspicious for acute cholecystitis. Patent common bile duct -Abd US: Cholelithiasis and positive sonographic Mendenhall's sign suggesting acute cholecystitis. 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 -CT abd/p: Distended gallbladder with wall thickening and mild pericholecystic inflammatory changes concerning for acute cholecystitis. Correlate clinically. Consider further imaging of the gallbladder with ultrasound or HIDA. Left inguinal hernia containing fat and loop of sigmoid colon. No evidence to suggest associated obstruction. There is some induration of the herniated contents however. Correlate with physical exam to assess for reducibility.Colonic diverticulosis. Mild stranding noted in the left lower quadrant which may related to the above-described hernia. If there is left lower quadrant pain the possibility of mild diverticulitis cannot be excluded. Small fat-containing right inguinal hernia and fat-containing umbilical hernia. Small hemangioma in the right hepatic lobe. Low grade fever; improvnig Leukocytosis; increased, now improving -CXR: no acute disease -u/a neg Plan: -Continue Zosyn #5/5-7 for acute cholecystitis -07/26 SP Ceftriaxone, Flagyl #3 -07/24 SP ZOsyn #1 -f/u cx -Monitor CBC/CMP, temperatures -Sx, GI f/u Thank you for this consultation. Will continue to follow along with you. Discussed with RN Subjective Allergies: Coded Allergies: No Known Allergies (Unverified , 07/24/19) Subjective afebrile in >36hrs wbc overall improved but remains ast 14 Objective Vital Signs Last 24 Hour Vital Signs Date Time Temp Pulse Resp B/P (MAP) Pulse Ox O2 Delivery O2 Flow Rate FiO2 07/30/19 09:00 Room Air 07/30/19 08:50 84 20 94 Room Air 21 07/30/19 08:00 98.0 81 22 145/86 (105) 07/30/19 04:00 97.9 74 18 134/79 (97) 96 07/30/19 00:00 99.0 84 18 132/82 (99) 93 07/29/19 21:00 Room Air 07/29/19 21:00 90 18 95 Room Air 21 07/29/19 20:00 98.7 89 18 142/90 (107) 95 07/29/19 16:00 97.1 72 16 121/77 (92) 97 07/29/19 12:00 99.0 83 16 139/86 (103) 97 Height (Feet): 6 Height (Inches): 1.00 Weight (Pounds): 158 Objective General Appearance: WD/WN, no apparent distress Lines, tubes and drains: peripheral HEENT: normocephalic, atraumatic, anicteric Neck: non-tender, normal alignment Respiratory/Chest: chest wall non-tender, lungs clear Cardiovascular/Chest: normal peripheral pulses Abdomen: normal bowel sounds Laboratory Tests Test 07/30/19 05:15 White Blood Count 14.6 K/UL (4.8-10.8) H Red Blood Count 3.69 M/UL (4.70-6.10) L Hemoglobin 12.0 G/DL (14.2-18.0) L Hematocrit 34.5 % (42.0-52.0) L Mean Corpuscular Volume 94 FL (80-99) Mean Corpuscular Hemoglobin 32.4 PG (27.0-31.0) H Mean Corpuscular Hemoglobin Concent 34.7 G/DL (32.0-36.0) Red Cell Distribution Width 11.3 % (11.6-14.8) L Platelet Count 377 K/UL (150-450) Mean Platelet Volume 5.4 FL (6.5-10.1) L Neutrophils (%) (Auto) 73.6 % (45.0-75.0) Lymphocytes (%) (Auto) 14.2 % (20.0-45.0) L Monocytes (%) (Auto) 10.6 % (1.0-10.0) H Eosinophils (%) (Auto) 1.1 % (0.0-3.0) Basophils (%) (Auto) 0.5 % (0.0-2.0) Sodium Level 142 MMOL/L (136-145) Potassium Level 3.9 MMOL/L (3.5-5.1) Chloride Level 104 MMOL/L (98-107) Carbon Dioxide Level 28 MMOL/L (21-32) Anion Gap 10 mmol/L (5-15) Blood Urea Nitrogen 10 mg/dL (7-18) Creatinine 0.9 MG/DL (0.55-1.30) Estimat Glomerular Filtration Rate > 60 mL/min (>60) Glucose Level 101 MG/DL (74-106) Calcium Level 8.6 MG/DL (8.5-10.1) Total Bilirubin 0.5 MG/DL (0.2-1.0) Aspartate Amino Transf (AST/SGOT) 28 U/L (15-37) Alanine Aminotransferase (ALT/SGPT) 39 U/L (12-78) Alkaline Phosphatase 103 U/L (46-116) Total Protein 6.7 G/DL (6.4-8.2) Albumin 2.1 G/DL (3.4-5.0) L Globulin 4.6 g/dL Albumin/Globulin Ratio 0.5 (1.0-2.7) L Amylase Level 163 U/L (25-115) H Lipase 1065 U/L (73-393) H Current Medications Medications (Trade) Dose Ordered Sig/Mckenzie Route PRN Reason Start Time Stop Time Status Last Admin Dose Admin Acetaminophen (Tylenol) 650 mg Q6H PRN ORAL Mild Pain (Pain Scale 1-3) 07/28/19 11:45 08/27/19 11:44 Acetaminophen/ Hydrocodone Bitart ([place] 10/325) 1 tab Q4H PRN ORAL Severe Pain (Pain Scale 7-10) 07/28/19 11:45 08/04/19 11:44 07/30/19 09:04 Acetaminophen/ Hydrocodone Bitart ([place] 5/325) 1 tab Q4H PRN ORAL Moderate Pain (Pain Scale 4-6) 07/28/19 11:45 08/04/19 11:44 Al Hydroxide/Mg Hydroxide (Mylanta) 15 ml Q6H PRN ORAL DYSPEPSIA 07/28/19 11:45 08/27/19 11:44 Albuterol/ Ipratropium (Albuterol/ Ipratropium) 3 ml Q4H PRN HHN Shortness of Breath 07/25/19 16:26 07/30/19 16:25 07/29/19 03:12 Clonidine HCl (Catapres Tab) 0.1 mg Q4H PRN ORAL SBP > 160 07/26/19 07:00 08/25/19 06:59 Diphenhydramine HCl (Benadryl) 25 mg Q8H PRN ORAL Itching/Pruritis 07/28/19 11:45 08/27/19 11:44 07/29/19 21:50 Docusate Sodium (Colace) 100 mg TWICE A DAY ORAL 07/28/19 18:00 08/27/19 17:59 07/29/19 18:28 Heparin Sodium (Porcine) (Heparin 5000 units/ml) 5,000 units EVERY 12 HOURS SUBQ 07/25/19 21:00 08/23/19 08:59 07/30/19 09:05 Magnesium Hydroxide (Mom) 30 ml BIDPRN PRN ORAL Constipation 07/28/19 11:45 08/27/19 11:44 Morphine Sulfate (Morphine Sulfate) 2 mg Q4H PRN IVP Severe Pain (Pain Scale 7-10) 07/25/19 16:45 07/31/19 08:44 07/29/19 07:56 Nitroglycerin (Ntg) 0.4 mg Q5MIN X 3 DOSES PRN SL Prn Chest Pain 07/25/19 16:30 08/23/19 08:44 Ondansetron HCl (Zofran) 4 mg Q6H PRN IVP Nausea & Vomiting 07/25/19 16:27 08/24/19 16:26 07/25/19 21:28 Ondansetron HCl (Zofran) 4 mg Q6H PRN IVP Nausea & Vomiting 07/28/19 11:45 08/27/19 11:44 Pantoprazole (Protonix) 40 mg Q12HR IV 07/25/19 21:00 08/23/19 08:59 07/30/19 09:03 Piperacillin Sod/ Tazobactam Sod 3.375 gm/Sodium Chloride 110 ml @ 27.5 mls/hr EVERY 8 HOURS IVPB 07/26/19 14:00 07/31/19 13:59 07/30/19 05:44 Polyethylene Glycol (Miralax) 17 gm DAILYPRN PRN ORAL Constipation 07/25/19 16:27 08/24/19 16:26 Sucralfate (Carafate) 1 gm FOUR TIMES A DAY ORAL 07/25/19 18:00 08/23/19 08:59 07/30/19 09:04 Temazepam (Restoril) 15 mg HSPRN PRN ORAL Insomnia 07/25/19 21:00 07/31/19 20:59 Georgina Fields M.D. Jul 30, 2019 11:00
--- NOTE | 2019-07-30 12:32 | GI Progress Note ---
Assessment/Plan Problems: (1) Abdominal pain ICD Codes: R10.9 - Unspecified abdominal pain SNOMED: 66203105 (2) Cholecystitis ICD Codes: K81.9 - Cholecystitis, unspecified SNOMED: 86977409 Status: stable, progressing Status Narrative Discussed with Dr. Sotelo. Assessment/Plan Assessment - RUQ pain - abnormal GB imaging, possible cholecystitis - diverticulosis, possible diverticulitis Recommendations POD #2 cholecystectomy fu surg recs pain control abx fu labs The patient was seen and examined at bedside and all new and available data was reviewed in the patients chart. I agree with the above findings, impression and plan. (Patient seen earlier today. Signature stamp does not reflect patient encounter time.). - Manish Sotelo MD Subjective Gastrointestinal/Abdominal: Reports: no symptoms Objective Last 24 Hour Vital Signs Date Time Temp Pulse Resp B/P (MAP) Pulse Ox O2 Delivery O2 Flow Rate FiO2 07/30/19 09:00 Room Air 07/30/19 08:50 84 20 94 Room Air 21 07/30/19 08:00 98.0 81 22 145/86 (105) 07/30/19 04:00 97.9 74 18 134/79 (97) 96 07/30/19 00:00 99.0 84 18 132/82 (99) 93 07/29/19 21:00 Room Air 07/29/19 21:00 90 18 95 Room Air 21 07/29/19 20:00 98.7 89 18 142/90 (107) 95 07/29/19 16:00 97.1 72 16 121/77 (92) 97 Intake and Output 07/29/19 07/30/19 18:59 06:59 Intake Total 1590 ml 450 ml Balance 1590 ml 450 ml Intake Oral 1180 ml 450 ml IV Total 410 ml # Voids 3 2 # Bowel Movements 1 Laboratory Tests Test 07/30/19 05:15 White Blood Count 14.6 K/UL (4.8-10.8) H Red Blood Count 3.69 M/UL (4.70-6.10) L Hemoglobin 12.0 G/DL (14.2-18.0) L Hematocrit 34.5 % (42.0-52.0) L Mean Corpuscular Volume 94 FL (80-99) Mean Corpuscular Hemoglobin 32.4 PG (27.0-31.0) H Mean Corpuscular Hemoglobin Concent 34.7 G/DL (32.0-36.0) Red Cell Distribution Width 11.3 % (11.6-14.8) L Platelet Count 377 K/UL (150-450) Mean Platelet Volume 5.4 FL (6.5-10.1) L Neutrophils (%) (Auto) 73.6 % (45.0-75.0) Lymphocytes (%) (Auto) 14.2 % (20.0-45.0) L Monocytes (%) (Auto) 10.6 % (1.0-10.0) H Eosinophils (%) (Auto) 1.1 % (0.0-3.0) Basophils (%) (Auto) 0.5 % (0.0-2.0) Sodium Level 142 MMOL/L (136-145) Potassium Level 3.9 MMOL/L (3.5-5.1) Chloride Level 104 MMOL/L (98-107) Carbon Dioxide Level 28 MMOL/L (21-32) Anion Gap 10 mmol/L (5-15) Blood Urea Nitrogen 10 mg/dL (7-18) Creatinine 0.9 MG/DL (0.55-1.30) Estimat Glomerular Filtration Rate > 60 mL/min (>60) Glucose Level 101 MG/DL (74-106) Calcium Level 8.6 MG/DL (8.5-10.1) Total Bilirubin 0.5 MG/DL (0.2-1.0) Aspartate Amino Transf (AST/SGOT) 28 U/L (15-37) Alanine Aminotransferase (ALT/SGPT) 39 U/L (12-78) Alkaline Phosphatase 103 U/L (46-116) Total Protein 6.7 G/DL (6.4-8.2) Albumin 2.1 G/DL (3.4-5.0) L Globulin 4.6 g/dL Albumin/Globulin Ratio 0.5 (1.0-2.7) L Amylase Level 163 U/L (25-115) H Lipase 1065 U/L (73-393) H Height (Feet): 6 Height (Inches): 1.00 Weight (Pounds): 158 General Appearance: WD/WN, no apparent distress, alert Cardiovascular: normal rate Respiratory/Chest: normal breath sounds, no respiratory distress Abdominal Exam: normal bowel sounds, non tender, soft Extremities: normal range of motion, non-tender Lindsey Montesinos NP Jul 30, 2019 12:32
--- NOTE | 2019-07-30 16:42 | Internal Med Progress Note ---
Subjective Date of Service: Jul 30, 2019 Physician Name Issa Singh Attending Physician Wan Triplett MD Current Medications Medications (Trade) Dose Ordered Sig/Mckenzie Route PRN Reason Start Time Stop Time Status Last Admin Dose Admin Acetaminophen (Tylenol) 650 mg Q6H PRN ORAL Mild Pain (Pain Scale 1-3) 07/28/19 11:45 08/27/19 11:44 07/30/19 11:19 Acetaminophen/ Hydrocodone Bitart ([place] 10/325) 1 tab Q4H PRN ORAL Severe Pain (Pain Scale 7-10) 07/28/19 11:45 08/04/19 11:44 07/30/19 14:35 Acetaminophen/ Hydrocodone Bitart ([place] 5/325) 1 tab Q4H PRN ORAL Moderate Pain (Pain Scale 4-6) 07/28/19 11:45 08/04/19 11:44 Al Hydroxide/Mg Hydroxide (Mylanta) 15 ml Q6H PRN ORAL DYSPEPSIA 07/28/19 11:45 08/27/19 11:44 Clonidine HCl (Catapres Tab) 0.1 mg Q4H PRN ORAL SBP > 160 07/26/19 07:00 08/25/19 06:59 Diphenhydramine HCl (Benadryl) 25 mg Q8H PRN ORAL Itching/Pruritis 07/28/19 11:45 08/27/19 11:44 07/30/19 11:20 Docusate Sodium (Colace) 100 mg TWICE A DAY ORAL 07/28/19 18:00 08/27/19 17:59 07/29/19 18:28 Heparin Sodium (Porcine) (Heparin 5000 units/ml) 5,000 units EVERY 12 HOURS SUBQ 07/25/19 21:00 08/23/19 08:59 07/30/19 09:05 Magnesium Hydroxide (Mom) 30 ml BIDPRN PRN ORAL Constipation 07/28/19 11:45 08/27/19 11:44 Morphine Sulfate (Morphine Sulfate) 2 mg Q4H PRN IVP Severe Pain (Pain Scale 7-10) 07/25/19 16:45 07/31/19 08:44 07/29/19 07:56 Nitroglycerin (Ntg) 0.4 mg Q5MIN X 3 DOSES PRN SL Prn Chest Pain 07/25/19 16:30 08/23/19 08:44 Ondansetron HCl (Zofran) 4 mg Q6H PRN IVP Nausea & Vomiting 07/28/19 11:45 08/27/19 11:44 Pantoprazole (Protonix) 40 mg Q12HR IV 07/25/19 21:00 08/23/19 08:59 07/30/19 09:03 Piperacillin Sod/ Tazobactam Sod 3.375 gm/Sodium Chloride 110 ml @ 27.5 mls/hr EVERY 8 HOURS IVPB 07/26/19 14:00 07/31/19 23:59 07/30/19 13:09 Polyethylene Glycol (Miralax) 17 gm DAILYPRN PRN ORAL Constipation 07/25/19 16:27 08/24/19 16:26 Sucralfate (Carafate) 1 gm FOUR TIMES A DAY ORAL 07/25/19 18:00 08/23/19 08:59 07/30/19 13:09 Temazepam (Restoril) 15 mg HSPRN PRN ORAL Insomnia 07/25/19 21:00 07/31/19 20:59 Allergies: Coded Allergies: No Known Allergies (Unverified , 07/24/19) ROS Limited/Unobtainable: No Constitutional: Reports: no symptoms HEENT: Reports: no symptoms Cardiovascular: Reports: no symptoms Respiratory: Reports: no symptoms Gastrointestinal/Abdominal: Reports: no symptoms Genitourinary: Reports: no symptoms Subjective 54 YO M admitted with epigastric pain. Now acute cholecystitis and cholelithiasis. Cover for Int Med-Dr Triplett. S/P laparoscopic cholecystectomy 07/28/19 Objective Last Vital Signs Date Time Temp Pulse Resp B/P (MAP) Pulse Ox O2 Delivery O2 Flow Rate FiO2 07/30/19 12:00 99.4 83 151/85 (107) 07/30/19 09:00 Room Air 07/30/19 08:50 20 94 21 07/28/19 11:55 3 Laboratory Tests Test 07/30/19 05:15 White Blood Count 14.6 K/UL (4.8-10.8) H Red Blood Count 3.69 M/UL (4.70-6.10) L Hemoglobin 12.0 G/DL (14.2-18.0) L Hematocrit 34.5 % (42.0-52.0) L Mean Corpuscular Volume 94 FL (80-99) Mean Corpuscular Hemoglobin 32.4 PG (27.0-31.0) H Mean Corpuscular Hemoglobin Concent 34.7 G/DL (32.0-36.0) Red Cell Distribution Width 11.3 % (11.6-14.8) L Platelet Count 377 K/UL (150-450) Mean Platelet Volume 5.4 FL (6.5-10.1) L Neutrophils (%) (Auto) 73.6 % (45.0-75.0) Lymphocytes (%) (Auto) 14.2 % (20.0-45.0) L Monocytes (%) (Auto) 10.6 % (1.0-10.0) H Eosinophils (%) (Auto) 1.1 % (0.0-3.0) Basophils (%) (Auto) 0.5 % (0.0-2.0) Sodium Level 142 MMOL/L (136-145) Potassium Level 3.9 MMOL/L (3.5-5.1) Chloride Level 104 MMOL/L (98-107) Carbon Dioxide Level 28 MMOL/L (21-32) Anion Gap 10 mmol/L (5-15) Blood Urea Nitrogen 10 mg/dL (7-18) Creatinine 0.9 MG/DL (0.55-1.30) Estimat Glomerular Filtration Rate > 60 mL/min (>60) Glucose Level 101 MG/DL (74-106) Calcium Level 8.6 MG/DL (8.5-10.1) Total Bilirubin 0.5 MG/DL (0.2-1.0) Aspartate Amino Transf (AST/SGOT) 28 U/L (15-37) Alanine Aminotransferase (ALT/SGPT) 39 U/L (12-78) Alkaline Phosphatase 103 U/L (46-116) Total Protein 6.7 G/DL (6.4-8.2) Albumin 2.1 G/DL (3.4-5.0) L Globulin 4.6 g/dL Albumin/Globulin Ratio 0.5 (1.0-2.7) L Amylase Level 163 U/L (25-115) H Lipase 1065 U/L (73-393) H Intake and Output 07/29/19 07/30/19 18:59 06:59 Intake Total 1590 ml 450 ml Balance 1590 ml 450 ml Intake Oral 1180 ml 450 ml IV Total 410 ml # Voids 3 2 # Bowel Movements 1 Objective PHYSICAL EXAMINATION: GENERAL: The patient is awake, responsive, no acute distress. HEENT: Head and neck examination, pupils are reactive to light. Extraocular movements intact. NECK: Supple. No JVD. LUNGS: Good air entry. No wheezing or rales. HEART: S1 and S2. Regular rhythm. No murmur or gallops. ABDOMEN: Soft. Tenderness in the epigastric area. No rebound tenderness. No fluid shift. The patient has a hernia on the left side, left groin inguinal area and umbilical hernia was noted. EXTREMITIES: No cyanosis, clubbing, edema NEUROLOGIC: Cranial nerves II through XII grossly normal. Motor is 5/5 in all extremities. Gait is intact. RECTAL: Refused and deferred. GENITOURINARY: Refused and deferred. PSYCHIATRIC: Mood and affect is intact Assessment/Plan Assessment/Plan ASSESSMENT: 1. Abdominal pain, 2. leukocytosis 3. acute cholecystitis and cholelithiasis. HIDA=C/W cholecystitis 4. Left inguinal hernia. 5. Umbilical hernia. 6. Gallstone pancreatitis PLAN: 1. Admit the patient to monitored floor. 2. tolerating clear liquid diet 3. antibiotics = zosyn 4. Code status is Full Code. 5. DVT prophylaxis=Heparin subcutaneous. 6. surgical consultation with Dr. Farooq; S/P laparoscopic cholecystectomy 07/28/19 7. GI consultation with 8. Infectious Disease consultation with Dr. Fields 9. Advance diet to regular Issa Singh MD Jul 30, 2019 16:42
--- NOTE | 2019-07-30 17:44 | Surgery Progress Note ---
Surgery Progress Note Subjective Procedure Performed lap maria del carmen Additional Comments leukocytosis lab pancreatitis but clinically tolerating diet and comfortable no n/v/fc left inguinal hernia today required to be reduced manually as it was noted to be somewhat incarcerated by patient Objective Last 24 Hour Vital Signs Date Time Temp Pulse Resp B/P (MAP) Pulse Ox O2 Delivery O2 Flow Rate FiO2 07/30/19 16:00 98.1 82 105/68 (80) 07/30/19 12:00 99.4 83 151/85 (107) 07/30/19 09:00 Room Air 07/30/19 08:50 84 20 94 Room Air 21 07/30/19 08:00 98.0 81 22 145/86 (105) 07/30/19 04:00 97.9 74 18 134/79 (97) 96 07/30/19 00:00 99.0 84 18 132/82 (99) 93 07/29/19 21:00 Room Air 07/29/19 21:00 90 18 95 Room Air 21 07/29/19 20:00 98.7 89 18 142/90 (107) 95 I&O Intake and Output 07/29/19 07/30/19 18:59 06:59 Intake Total 1590 ml 450 ml Balance 1590 ml 450 ml Intake Oral 1180 ml 450 ml IV Total 410 ml # Voids 3 2 # Bowel Movements 1 Dressing: dry Wound: clean Cardiovascular: RSR Respiratory: clear Abdomen: soft, flat, non-tender, present bowel sounds Extremities: no tenderness, no cyanosis Laboratory Tests Test 07/30/19 05:15 White Blood Count 14.6 K/UL (4.8-10.8) H Red Blood Count 3.69 M/UL (4.70-6.10) L Hemoglobin 12.0 G/DL (14.2-18.0) L Hematocrit 34.5 % (42.0-52.0) L Mean Corpuscular Volume 94 FL (80-99) Mean Corpuscular Hemoglobin 32.4 PG (27.0-31.0) H Mean Corpuscular Hemoglobin Concent 34.7 G/DL (32.0-36.0) Red Cell Distribution Width 11.3 % (11.6-14.8) L Platelet Count 377 K/UL (150-450) Mean Platelet Volume 5.4 FL (6.5-10.1) L Neutrophils (%) (Auto) 73.6 % (45.0-75.0) Lymphocytes (%) (Auto) 14.2 % (20.0-45.0) L Monocytes (%) (Auto) 10.6 % (1.0-10.0) H Eosinophils (%) (Auto) 1.1 % (0.0-3.0) Basophils (%) (Auto) 0.5 % (0.0-2.0) Sodium Level 142 MMOL/L (136-145) Potassium Level 3.9 MMOL/L (3.5-5.1) Chloride Level 104 MMOL/L (98-107) Carbon Dioxide Level 28 MMOL/L (21-32) Anion Gap 10 mmol/L (5-15) Blood Urea Nitrogen 10 mg/dL (7-18) Creatinine 0.9 MG/DL (0.55-1.30) Estimat Glomerular Filtration Rate > 60 mL/min (>60) Glucose Level 101 MG/DL (74-106) Calcium Level 8.6 MG/DL (8.5-10.1) Total Bilirubin 0.5 MG/DL (0.2-1.0) Aspartate Amino Transf (AST/SGOT) 28 U/L (15-37) Alanine Aminotransferase (ALT/SGPT) 39 U/L (12-78) Alkaline Phosphatase 103 U/L (46-116) Total Protein 6.7 G/DL (6.4-8.2) Albumin 2.1 G/DL (3.4-5.0) L Globulin 4.6 g/dL Albumin/Globulin Ratio 0.5 (1.0-2.7) L Amylase Level 163 U/L (25-115) H Lipase 1065 U/L (73-393) H Plan Problems: (1) Abdominal pain Assessment & Plan: 54-year-old male with abdominal pain. Leukocytosis. CT scan with distended gallbladder, inguinal hernia, umbilical hernia, Diverticula Afebrile hemodynamic stable labs as above CT as below States the pain is improved since admission Currently tolerating clear liquids Abdominal ultrasound noted CT noted No acute surgical intervention at this time We will monitor for improvement. If no improvement will proceed with further imaging and potentially surgery if necessary HIDA scan noted + Antibiotics as per infectious disease We will follow with recommendations thank you for allowing participate patient' s care Status post lap maria del carmen. Doing well. Path noting reviewed. Still having incisional pain as anticipated. Leukocytosis. Given path findings not ready for discharge. Recommend IV antibiotics . Needs better pain control prior to discharge AM labs Hold on left inguinal hernia repair given able to reduce. if becomes incarcerated and cannot reduce will need repair but not optimal while recovering from acute infectious process. patient expressed understanding. warning signs given to patient. instructions given to patient. he will f/u with pcp upon d/c for surgical outpatient referral to have hernia repaired once recovered from this acute process. We will follow with Recs thank you (2) Cholecystitis Assessment & Plan: * Distended gallbladder with wall thickening and mild pericholecystic inflammatory changes concerning for acute cholecystitis. Correlate clinically. Consider further imaging of the gallbladder with ultrasound or HIDA. * Left inguinal hernia containing fat and loop of sigmoid colon. No evidence to suggest associated obstruction. There is some induration of the herniated contents however. Correlate with physical exam to assess for reducibility. * Colonic diverticulosis. Mild stranding noted in the left lower quadrant which may related to the above-described hernia. If there is left lower quadrant pain the possibility of mild diverticulitis cannot be excluded. * Small fat-containing right inguinal hernia and fat-containing umbilical hernia. * Small hemangioma in the right hepatic lobe. Additional findings as above. This corresponds with the preliminary report by [facility]. Shelton Farooq Jul 30, 2019 17:44
--- NOTE | 2019-07-30 19:38 | NUR ---
NURSE NOTES: Dr Hoang seen pt earlier in shift , seen pt hernia. Dr Carrasquillo informed pt that due to his recent surgery he is reluctant to operate pt should follow up with primary. Dr Hoang pushed hernia into place. Pain medication afterwards, .. Pt is cooperative with care., overall appearance has improved. Denies possible effects related to antibiotic use
--- NOTE | 2019-07-30 19:42 | NUR ---
HAND-OFF: Report given to Sis LOGAN.
--- NOTE | 2019-07-30 23:36 | NUR ---
NURSE NOTE: Pt is A/OX4 with stable VS. Orders reviewed and physical assessment completed. Call burgess is within reach, will continue to monitor.
[2019-07-31] MEDS: HYDROcodone/Acetamin 10/325 tab ORAL PRN ×3 (00:14→14:48)
[2019-07-31 04:30] VITALS: BP 140/85
[2019-07-31] MEDS: Piperacillin/Tazobactam 3.375 GM in NS 110 ML IVPB SCH ×2 (05:52→14:00)
[2019-07-31 06:49] LABS: BASOPHILS % (AUTO) 0.5 % (0.0-2.0); EOSINOPHILS % (AUTO) 2.2 % (0.0-3.0); HEMATOCRIT 36.2 % (42.0-52.0); HEMOGLOBIN 12.5 G/DL (14.2-18.0); LYMPHOCYTES % (AUTO) 16.6 % (20.0-45.0); MEAN CORPUSCULAR VOLUME 94 FL (80-99); NEUTROPHILS % (AUTO) 72.8 % (45.0-75.0); PLATELET COUNT 473 K/UL (150-450); RED BLOOD COUNT 3.86 M/UL (4.70-6.10); RED CELL DISTRIBUTION WIDTH 11.1 % (11.6-14.8); WHITE BLOOD COUNT 15.9 K/UL (4.8-10.8)
--- NOTE | 2019-07-31 07:08 | NUR ---
HAND-OFF: Report given to Ever.
--- NOTE | 2019-07-31 07:10 | NUR ---
NURSE NOTES: Patient lying in bed awake. Complain of pain 5/10 on abdomen area and pain medication given by vinyl top installer nurse. Will continue to monitor. Surgical dressing intact and dry. IV dressing intact and dry. Bed lowest position. Call light within reach. Will continue to monitor.
[2019-07-31 07:22] LABS: AMYLASE 132 U/L (25-115)
[2019-07-31 07:24] LABS: ANION GAP 9 mmol/L (5-15); BLOOD UREA NITROGEN 10 mg/dL (7-18); CALCIUM 8.6 MG/DL (8.5-10.1); CARBON DIOXIDE 30 MMOL/L (21-32); CHLORIDE 101 MMOL/L (98-107); PHOSPHORUS 3.1 MG/DL (2.5-4.9); POTASSIUM 3.5 MMOL/L (3.5-5.1); SODIUM 139 MMOL/L (136-145)
[2019-07-31 08:00] VITALS: BP 128/85
[2019-07-31] MEDS: Pantoprazole Inj IV SCH (09:35)
[2019-07-31] MEDS: Docusate 100mg cap ORAL SCH (09:35)
[2019-07-31] MEDS: Sucralfate 1gm tab ORAL SCH ×2 (09:35→13:51)
[2019-07-31] MEDS: Heparin 5000 units/ml inj SUBQ SCH (09:38)
--- NOTE | 2019-07-31 11:40 | NUR ---
NURSE NOTES: Spoke to regarding patient. Per : Patient cleared to discharge surgical standpoint. Order noted and carried out.
[2019-07-31 12:00] VITALS: BP 133/87
[2019-07-31] MEDS ORDERED: ACETAMINOPHEN-1 EAC1 ORAL (12:17)
--- NOTE | 2019-07-31 12:29 | Pulmonology Progress Note ---
Assessment/Plan Problems: (1) Diverticulitis (2) Cholecystitis (3) No pertinent past medical history Assessment/Plan doing better eating well surgery cleared for dc prescription for Tylenol 3 given Subjective ROS Limited/Unobtainable: No Constitutional: Reports: no symptoms HEENT: Repors: no symptoms Respiratory: Reports: no symptoms Allergies: Coded Allergies: No Known Allergies (Unverified , 07/24/19) Objective Last 24 Hour Vital Signs Date Time Temp Pulse Resp B/P (MAP) Pulse Ox O2 Delivery O2 Flow Rate FiO2 07/31/19 08:00 97.9 75 18 128/85 (99) 96 07/31/19 04:30 98.5 83 18 140/85 (103) 94 07/30/19 23:50 98.5 73 18 131/86 (101) 94 07/30/19 21:00 Room Air 07/30/19 20:08 97.9 80 18 151/88 (109) 94 07/30/19 20:08 87 20 96 Room Air 21 07/30/19 16:00 98.1 82 105/68 (80) Intake and Output 07/30/19 07/31/19 19:00 07:00 Intake Total 1510.0 ml Balance 1510.0 ml Intake Oral 1400 ml IV Total 110.0 ml # Voids 2 # Bowel Movements 1 General Appearance: WD/WN HEENT: normocephalic, atraumatic Respiratory/Chest: chest wall non-tender, normal breath sounds Cardiovascular: normal peripheral pulses, normal rate Abdomen: normal bowel sounds, soft, non tender Genitourinary: normal external genitalia Extremities: no clubbing Laboratory Tests 07/31/19 05:30: White Blood Count 15.9H, Red Blood Count 3.86L, Hemoglobin 12.5L, Hematocrit 36.2L, Mean Corpuscular Volume 94, Mean Corpuscular Hemoglobin 32.4H, Mean Corpuscular Hemoglobin Concent 34.5, Red Cell Distribution Width 11.1L, Platelet Count 473H, Mean Platelet Volume 5.4L, Neutrophils (%) (Auto) 72.8, Lymphocytes (%) (Auto) 16.6L, Monocytes (%) (Auto) 8.0, Eosinophils (%) (Auto) 2.2, Basophils (%) (Auto) 0.5, Sodium Level 139, Potassium Level 3.5, Chloride Level 101, Carbon Dioxide Level 30, Anion Gap 9, Blood Urea Nitrogen 10, Creatinine 1.0, Estimat Glomerular Filtration Rate > 60, Glucose Level 99, Calcium Level 8.6, Phosphorus Level 3.1, Magnesium Level 1.9, Amylase Level 132H , Lipase 888H Current Medications Medications (Trade) Dose Ordered Sig/Mckenzie Route PRN Reason Start Time Stop Time Status Last Admin Dose Admin Acetaminophen (Tylenol) 650 mg Q6H PRN ORAL Mild Pain (Pain Scale 1-3) 07/28/19 11:45 08/27/19 11:44 07/30/19 11:19 Acetaminophen/ Hydrocodone Bitart ([place] 10/325) 1 tab Q4H PRN ORAL Severe Pain (Pain Scale 7-10) 07/28/19 11:45 08/04/19 11:44 07/31/19 05:52 Acetaminophen/ Hydrocodone Bitart ([place] 5/325) 1 tab Q4H PRN ORAL Moderate Pain (Pain Scale 4-6) 07/28/19 11:45 08/04/19 11:44 Al Hydroxide/Mg Hydroxide (Mylanta) 15 ml Q6H PRN ORAL DYSPEPSIA 07/28/19 11:45 08/27/19 11:44 Clonidine HCl (Catapres Tab) 0.1 mg Q4H PRN ORAL SBP > 160 07/26/19 07:00 08/25/19 06:59 Diphenhydramine HCl (Benadryl) 25 mg Q8H PRN ORAL Itching/Pruritis 07/28/19 11:45 08/27/19 11:44 07/30/19 22:12 Docusate Sodium (Colace) 100 mg TWICE A DAY ORAL 07/28/19 18:00 08/27/19 17:59 07/31/19 09:35 Heparin Sodium (Porcine) (Heparin 5000 units/ml) 5,000 units EVERY 12 HOURS SUBQ 07/25/19 21:00 08/23/19 08:59 07/31/19 09:38 Magnesium Hydroxide (Mom) 30 ml BIDPRN PRN ORAL Constipation 07/28/19 11:45 08/27/19 11:44 Nitroglycerin (Ntg) 0.4 mg Q5MIN X 3 DOSES PRN SL Prn Chest Pain 07/25/19 16:30 08/23/19 08:44 Ondansetron HCl (Zofran) 4 mg Q6H PRN IVP Nausea & Vomiting 07/28/19 11:45 08/27/19 11:44 Pantoprazole (Protonix) 40 mg Q12HR IV 07/25/19 21:00 08/23/19 08:59 07/31/19 09:35 Piperacillin Sod/ Tazobactam Sod 3.375 gm/Sodium Chloride 110 ml @ 27.5 mls/hr EVERY 8 HOURS IVPB 07/26/19 14:00 07/31/19 23:59 07/31/19 05:52 Polyethylene Glycol (Miralax) 17 gm DAILYPRN PRN ORAL Constipation 07/25/19 16:27 08/24/19 16:26 Sucralfate (Carafate) 1 gm FOUR TIMES A DAY ORAL 07/25/19 18:00 08/23/19 08:59 07/31/19 09:35 Temazepam (Restoril) 15 mg HSPRN PRN ORAL Insomnia 07/25/19 21:00 07/31/19 20:59 Braxton Johnson MD Jul 31, 2019 12:29
--- NOTE | 2019-07-31 13:02 | GI Progress Note ---
Assessment/Plan Problems: (1) Abdominal pain ICD Codes: R10.9 - Unspecified abdominal pain SNOMED: 25944785 (2) Cholecystitis ICD Codes: K81.9 - Cholecystitis, unspecified SNOMED: 71625549 Status: progressing Status Narrative Discussed with Dr. Sotelo. Assessment/Plan Assessment - RUQ pain - abnormal GB imaging, possible cholecystitis - diverticulosis, possible diverticulitis s/p cholecystectomy Recommendations symptomatic treatment zofran prn fu surg recs pain control abx fu labs The patient was seen and examined at bedside and all new and available data was reviewed in the patients chart. I agree with the above findings, impression and plan. (Patient seen earlier today. Signature stamp does not reflect patient encounter time.). - Manish Sotelo MD Subjective Gastrointestinal/Abdominal: Reports: abdominal pain Objective Last 24 Hour Vital Signs Date Time Temp Pulse Resp B/P (MAP) Pulse Ox O2 Delivery O2 Flow Rate FiO2 07/31/19 08:00 97.9 75 18 128/85 (99) 96 07/31/19 04:30 98.5 83 18 140/85 (103) 94 07/30/19 23:50 98.5 73 18 131/86 (101) 94 07/30/19 21:00 Room Air 07/30/19 20:08 97.9 80 18 151/88 (109) 94 07/30/19 20:08 87 20 96 Room Air 21 07/30/19 16:00 98.1 82 105/68 (80) Intake and Output 07/30/19 07/31/19 19:00 07:00 Intake Total 1510.0 ml Balance 1510.0 ml Intake Oral 1400 ml IV Total 110.0 ml # Voids 2 # Bowel Movements 1 Laboratory Tests Test 07/31/19 05:30 White Blood Count 15.9 K/UL (4.8-10.8) H Red Blood Count 3.86 M/UL (4.70-6.10) L Hemoglobin 12.5 G/DL (14.2-18.0) L Hematocrit 36.2 % (42.0-52.0) L Mean Corpuscular Volume 94 FL (80-99) Mean Corpuscular Hemoglobin 32.4 PG (27.0-31.0) H Mean Corpuscular Hemoglobin Concent 34.5 G/DL (32.0-36.0) Red Cell Distribution Width 11.1 % (11.6-14.8) L Platelet Count 473 K/UL (150-450) H Mean Platelet Volume 5.4 FL (6.5-10.1) L Neutrophils (%) (Auto) 72.8 % (45.0-75.0) Lymphocytes (%) (Auto) 16.6 % (20.0-45.0) L Monocytes (%) (Auto) 8.0 % (1.0-10.0) Eosinophils (%) (Auto) 2.2 % (0.0-3.0) Basophils (%) (Auto) 0.5 % (0.0-2.0) Sodium Level 139 MMOL/L (136-145) Potassium Level 3.5 MMOL/L (3.5-5.1) Chloride Level 101 MMOL/L (98-107) Carbon Dioxide Level 30 MMOL/L (21-32) Anion Gap 9 mmol/L (5-15) Blood Urea Nitrogen 10 mg/dL (7-18) Creatinine 1.0 MG/DL (0.55-1.30) Estimat Glomerular Filtration Rate > 60 mL/min (>60) Glucose Level 99 MG/DL (74-106) Calcium Level 8.6 MG/DL (8.5-10.1) Phosphorus Level 3.1 MG/DL (2.5-4.9) Magnesium Level 1.9 MG/DL (1.8-2.4) Amylase Level 132 U/L (25-115) H Lipase 888 U/L (73-393) H Height (Feet): 6 Height (Inches): 1.00 Weight (Pounds): 158 General Appearance: WD/WN, no apparent distress, alert Cardiovascular: normal rate Respiratory/Chest: normal breath sounds, no respiratory distress Abdominal Exam: normal bowel sounds, non tender, soft Extremities: normal range of motion, non-tender Lindsey Montesinos NP Jul 31, 2019 13:02
--- NOTE | 2019-07-31 13:20 | NUR ---
RD ASSESSMENT & RECOMMENDATIONS SEE CARE ACTIVITY FOR COMPLETE ASSESSMENT DAILY ESTIMATED NEEDS: Needs based on Surgery/ 72kg 25-30 kcals/kg 9764-8059 total kcals 1-2 g protein/kg 72-144 g total protein 25-30 mL/kg 1413-8837 total fluid mLs NUTRITION DIAGNOSIS: Altered nutrition related lab values R/T cholecystitis, gallbladder pancreatitis as evidenced by elev amylase (132), elev lipase (888) CURRENT DIET:REGULAR PO DIET RECOMMENDATIONS: LOW FAT ADDITIONAL RECOMMENDATIONS: * Standing wt for accurate CBW * Monitor PO tolerance and acceptance * Monitor lipase and amylase trend
--- NOTE | 2019-07-31 16:03 | Surgery Progress Note ---
Surgery Progress Note Subjective Procedure Performed lap maria del carmen Symptoms: improved, tolerating diet, voiding well, passing flatus, BM, pain decreased Additional Comments left inguinal hernia remains reduced today no n/v/f/c wounds c/d/i labs noted discussed with ID and agree stable and transition to oral abx for d/c Objective Last 24 Hour Vital Signs Date Time Temp Pulse Resp B/P (MAP) Pulse Ox O2 Delivery O2 Flow Rate FiO2 07/31/19 12:00 97.3 80 20 133/87 (102) 95 07/31/19 09:00 Room Air 07/31/19 08:00 97.9 75 18 128/85 (99) 96 07/31/19 04:30 98.5 83 18 140/85 (103) 94 07/30/19 23:50 98.5 73 18 131/86 (101) 94 07/30/19 21:00 Room Air 07/30/19 20:08 97.9 80 18 151/88 (109) 94 07/30/19 20:08 87 20 96 Room Air 21 I&O Intake and Output 07/30/19 07/31/19 19:00 07:00 Intake Total 1510.0 ml Balance 1510.0 ml Intake Oral 1400 ml IV Total 110.0 ml # Voids 2 # Bowel Movements 1 Cardiovascular: RSR Respiratory: clear Abdomen: soft, flat, non-tender, present bowel sounds, non-distended Extremities: no edema, no tenderness, no cyanosis Laboratory Tests Test 07/31/19 05:30 White Blood Count 15.9 K/UL (4.8-10.8) H Red Blood Count 3.86 M/UL (4.70-6.10) L Hemoglobin 12.5 G/DL (14.2-18.0) L Hematocrit 36.2 % (42.0-52.0) L Mean Corpuscular Volume 94 FL (80-99) Mean Corpuscular Hemoglobin 32.4 PG (27.0-31.0) H Mean Corpuscular Hemoglobin Concent 34.5 G/DL (32.0-36.0) Red Cell Distribution Width 11.1 % (11.6-14.8) L Platelet Count 473 K/UL (150-450) H Mean Platelet Volume 5.4 FL (6.5-10.1) L Neutrophils (%) (Auto) 72.8 % (45.0-75.0) Lymphocytes (%) (Auto) 16.6 % (20.0-45.0) L Monocytes (%) (Auto) 8.0 % (1.0-10.0) Eosinophils (%) (Auto) 2.2 % (0.0-3.0) Basophils (%) (Auto) 0.5 % (0.0-2.0) Sodium Level 139 MMOL/L (136-145) Potassium Level 3.5 MMOL/L (3.5-5.1) Chloride Level 101 MMOL/L (98-107) Carbon Dioxide Level 30 MMOL/L (21-32) Anion Gap 9 mmol/L (5-15) Blood Urea Nitrogen 10 mg/dL (7-18) Creatinine 1.0 MG/DL (0.55-1.30) Estimat Glomerular Filtration Rate > 60 mL/min (>60) Glucose Level 99 MG/DL (74-106) Calcium Level 8.6 MG/DL (8.5-10.1) Phosphorus Level 3.1 MG/DL (2.5-4.9) Magnesium Level 1.9 MG/DL (1.8-2.4) Amylase Level 132 U/L (25-115) H Lipase 888 U/L (73-393) H Plan Problems: (1) Abdominal pain Assessment & Plan: 54-year-old male with abdominal pain. Leukocytosis. CT scan with distended gallbladder, inguinal hernia, umbilical hernia, Diverticula Afebrile hemodynamic stable labs as above CT as below States the pain is improved since admission Currently tolerating clear liquids Abdominal ultrasound noted CT noted No acute surgical intervention at this time We will monitor for improvement. If no improvement will proceed with further imaging and potentially surgery if necessary HIDA scan noted + Antibiotics as per infectious disease We will follow with recommendations thank you for allowing participate patient' s care Status post lap maria del carmen. Doing well. Path noting reviewed. Still having incisional pain as anticipated. Leukocytosis. Given path findings not ready for discharge. Recommend IV antibiotics . Needs better pain control prior to discharge AM labs Hold on left inguinal hernia repair given able to reduce. if becomes incarcerated and cannot reduce will need repair but not optimal while recovering from acute infectious process. patient expressed understanding. warning signs given to patient. instructions given to patient. he will f/u with pcp upon d/c for surgical outpatient referral to have hernia repaired once recovered from this acute process. We will follow with Recs thank you (2) Cholecystitis Assessment & Plan: * Distended gallbladder with wall thickening and mild pericholecystic inflammatory changes concerning for acute cholecystitis. Correlate clinically. Consider further imaging of the gallbladder with ultrasound or HIDA. * Left inguinal hernia containing fat and loop of sigmoid colon. No evidence to suggest associated obstruction. There is some induration of the herniated contents however. Correlate with physical exam to assess for reducibility. * Colonic diverticulosis. Mild stranding noted in the left lower quadrant which may related to the above-described hernia. If there is left lower quadrant pain the possibility of mild diverticulitis cannot be excluded. * Small fat-containing right inguinal hernia and fat-containing umbilical hernia. * Small hemangioma in the right hepatic lobe. Additional findings as above. This corresponds with the preliminary report by [facility]. Shelton Farooq Jul 31, 2019 16:03
--- NOTE | 2019-07-31 16:15 | NUR ---
NURSE NOTES: Patient discharged with family member in stable condition. Discharge instruction given to patient and verbalized understanding. Pain medication and belonging given to patient. Instructed to follow up with MD and verbalized understanding. IV and ID removed. Brought down to private car by wheelchair.
--- NOTE | 2019-07-31 16:15 | Internal Med Progress Note ---
Subjective Physician Name Wan Triplett Attending Physician Wan Triplett MD Current Medications Medications (Trade) Dose Ordered Sig/Mckenzie Route PRN Reason Start Time Stop Time Status Last Admin Dose Admin Acetaminophen (Tylenol) 650 mg Q6H PRN ORAL Mild Pain (Pain Scale 1-3) 07/28/19 11:45 08/27/19 11:44 07/30/19 11:19 Acetaminophen/ Hydrocodone Bitart ([place] 10/325) 1 tab Q4H PRN ORAL Severe Pain (Pain Scale 7-10) 07/28/19 11:45 08/04/19 11:44 07/31/19 14:48 Acetaminophen/ Hydrocodone Bitart ([place] 5/325) 1 tab Q4H PRN ORAL Moderate Pain (Pain Scale 4-6) 07/28/19 11:45 08/04/19 11:44 Al Hydroxide/Mg Hydroxide (Mylanta) 15 ml Q6H PRN ORAL DYSPEPSIA 07/28/19 11:45 08/27/19 11:44 Clonidine HCl (Catapres Tab) 0.1 mg Q4H PRN ORAL SBP > 160 07/26/19 07:00 08/25/19 06:59 Diphenhydramine HCl (Benadryl) 25 mg Q8H PRN ORAL Itching/Pruritis 07/28/19 11:45 08/27/19 11:44 07/30/19 22:12 Docusate Sodium (Colace) 100 mg TWICE A DAY ORAL 07/28/19 18:00 08/27/19 17:59 07/31/19 09:35 Heparin Sodium (Porcine) (Heparin 5000 units/ml) 5,000 units EVERY 12 HOURS SUBQ 07/25/19 21:00 08/23/19 08:59 07/31/19 09:38 Magnesium Hydroxide (Mom) 30 ml BIDPRN PRN ORAL Constipation 07/28/19 11:45 08/27/19 11:44 Nitroglycerin (Ntg) 0.4 mg Q5MIN X 3 DOSES PRN SL Prn Chest Pain 07/25/19 16:30 08/23/19 08:44 Ondansetron HCl (Zofran) 4 mg Q6H PRN IVP Nausea & Vomiting 07/28/19 11:45 08/27/19 11:44 Pantoprazole (Protonix) 40 mg Q12HR IV 07/25/19 21:00 08/23/19 08:59 07/31/19 09:35 Piperacillin Sod/ Tazobactam Sod 3.375 gm/Sodium Chloride 110 ml @ 27.5 mls/hr EVERY 8 HOURS IVPB 07/26/19 14:00 07/31/19 23:59 07/31/19 05:52 Polyethylene Glycol (Miralax) 17 gm DAILYPRN PRN ORAL Constipation 07/25/19 16:27 08/24/19 16:26 Sucralfate (Carafate) 1 gm FOUR TIMES A DAY ORAL 07/25/19 18:00 08/23/19 08:59 07/31/19 13:51 Temazepam (Restoril) 15 mg HSPRN PRN ORAL Insomnia 07/25/19 21:00 07/31/19 20:59 Allergies: Coded Allergies: No Known Allergies (Unverified , 07/24/19) Subjective awake, alert, responsive, less abdominal pain Objective Last Vital Signs Date Time Temp Pulse Resp B/P (MAP) Pulse Ox O2 Delivery O2 Flow Rate FiO2 07/31/19 12:00 97.3 80 20 133/87 (102) 95 07/31/19 09:00 Room Air 07/30/19 20:08 21 07/28/19 11:55 3 Laboratory Tests Test 07/31/19 05:30 White Blood Count 15.9 K/UL (4.8-10.8) H Red Blood Count 3.86 M/UL (4.70-6.10) L Hemoglobin 12.5 G/DL (14.2-18.0) L Hematocrit 36.2 % (42.0-52.0) L Mean Corpuscular Volume 94 FL (80-99) Mean Corpuscular Hemoglobin 32.4 PG (27.0-31.0) H Mean Corpuscular Hemoglobin Concent 34.5 G/DL (32.0-36.0) Red Cell Distribution Width 11.1 % (11.6-14.8) L Platelet Count 473 K/UL (150-450) H Mean Platelet Volume 5.4 FL (6.5-10.1) L Neutrophils (%) (Auto) 72.8 % (45.0-75.0) Lymphocytes (%) (Auto) 16.6 % (20.0-45.0) L Monocytes (%) (Auto) 8.0 % (1.0-10.0) Eosinophils (%) (Auto) 2.2 % (0.0-3.0) Basophils (%) (Auto) 0.5 % (0.0-2.0) Sodium Level 139 MMOL/L (136-145) Potassium Level 3.5 MMOL/L (3.5-5.1) Chloride Level 101 MMOL/L (98-107) Carbon Dioxide Level 30 MMOL/L (21-32) Anion Gap 9 mmol/L (5-15) Blood Urea Nitrogen 10 mg/dL (7-18) Creatinine 1.0 MG/DL (0.55-1.30) Estimat Glomerular Filtration Rate > 60 mL/min (>60) Glucose Level 99 MG/DL (74-106) Calcium Level 8.6 MG/DL (8.5-10.1) Phosphorus Level 3.1 MG/DL (2.5-4.9) Magnesium Level 1.9 MG/DL (1.8-2.4) Amylase Level 132 U/L (25-115) H Lipase 888 U/L (73-393) H Intake and Output 07/30/19 07/31/19 18:59 06:59 Intake Total 1510.0 ml Balance 1510.0 ml Intake Oral 1400 ml IV Total 110.0 ml # Voids 2 # Bowel Movements 1 Objective General: No acute distress, awake and alert HEENT: NCAT, sclera anicteric, PERRL, EOMI. Neck: Supple, no significant jugular venous distention, Lungs: Good inspiratory effort, clear to auscultation bilaterally, no Wheeze or Rales. Heart: Regular rate and rhythm, normal S1/S2, no murmurs Abdomen: soft, less tender, nondistended. Normoactive bowel sounds, surgical incision intact. / Rectal: Refused and deferred. Extremities: No Cyanosis , clubbing or edema. Neuro: A&O x 3, Able to move all extremities Skin: warm, no rashes or lesions Psych: Normal mood and affect Assessment/Plan Assessment/Plan 1. Abdominal pain, 2. leukocytosis 3. acute cholecystitis and cholelithiasis. HIDA=C/W cholecystitis 4. Left inguinal hernia. 5. Umbilical hernia. 6. Gallstone pancreatitis PLAN: 1. Admit the patient to monitored floor. 2. tolerating clear liquid diet 3. antibiotics = zosyn 4. Code status is Full Code. 5. DVT prophylaxis=Heparin subcutaneous. 6. surgical consultation with Dr. Farooq; S/P laparoscopic cholecystectomy 07/28/19 7. GI consultation with 8. Infectious Disease consultation with Dr. Fields 9. Advance diet to regular DC home today. Wan Triplett MD Jul 31, 2019 16:15
--- NOTE | 2019-07-31 16:50 | Infectious Diseases Prog Note ---
Assessment/Plan Assessment/Plan Assessment: Abdominal pain- 2ry to Acute cholecystitis Gallstone pancreatitis -07/28 SP Laparoscopic cholecystectomy --path: acute gangrenous cholecystitis, superimposed chronic cholecystitis, cholelithiasis, no malignancy -HIDA scan: Nonvisualization of the gallbladder. This is suspicious for acute cholecystitis. Patent common bile duct -Abd US: Cholelithiasis and positive sonographic Mendenhall's sign suggesting acute cholecystitis. 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 -CT abd/p: Distended gallbladder with wall thickening and mild pericholecystic inflammatory changes concerning for acute cholecystitis. Correlate clinically. Consider further imaging of the gallbladder with ultrasound or HIDA. Left inguinal hernia containing fat and loop of sigmoid colon. No evidence to suggest associated obstruction. There is some induration of the herniated contents however. Correlate with physical exam to assess for reducibility.Colonic diverticulosis. Mild stranding noted in the left lower quadrant which may related to the above-described hernia. If there is left lower quadrant pain the possibility of mild diverticulitis cannot be excluded. Small fat-containing right inguinal hernia and fat-containing umbilical hernia. Small hemangioma in the right hepatic lobe. Low grade fever; improvnig Leukocytosis; increased, now improving -CXR: no acute disease -u/a neg Plan: -Continue Zosyn #6/10 for acute cholecystitis -ok to discharge on PO Cipro 500mg bid and Flagyl 500mg tid for 5 more days -07/26 SP Ceftriaxone, Flagyl #3 -07/24 SP ZOsyn #1 -f/u cx -Monitor CBC/CMP, temperatures -Sx, GI f/u Thank you for this consultation. Will continue to follow along with you. Discussed with RN and Dr Farooq Subjective Allergies: Coded Allergies: No Known Allergies (Unverified , 07/24/19) Subjective late entry wbc remains 14-15 afebrile >48hrs clinically much improved tolerating full diet discharge planning Objective Vital Signs Last 24 Hour Vital Signs Date Time Temp Pulse Resp B/P (MAP) Pulse Ox O2 Delivery O2 Flow Rate FiO2 07/31/19 12:00 97.3 80 20 133/87 (102) 95 07/31/19 09:00 Room Air 07/31/19 08:00 97.9 75 18 128/85 (99) 96 07/31/19 04:30 98.5 83 18 140/85 (103) 94 07/30/19 23:50 98.5 73 18 131/86 (101) 94 07/30/19 21:00 Room Air 07/30/19 20:08 97.9 80 18 151/88 (109) 94 07/30/19 20:08 87 20 96 Room Air 21 Height (Feet): 6 Height (Inches): 1.00 Weight (Pounds): 158 Objective General Appearance: WD/WN, no apparent distress Lines, tubes and drains: peripheral HEENT: normocephalic, atraumatic, anicteric Neck: non-tender, normal alignment Respiratory/Chest: chest wall non-tender, lungs clear Cardiovascular/Chest: normal peripheral pulses Abdomen: normal bowel sounds Laboratory Tests Test 07/31/19 05:30 White Blood Count 15.9 K/UL (4.8-10.8) H Red Blood Count 3.86 M/UL (4.70-6.10) L Hemoglobin 12.5 G/DL (14.2-18.0) L Hematocrit 36.2 % (42.0-52.0) L Mean Corpuscular Volume 94 FL (80-99) Mean Corpuscular Hemoglobin 32.4 PG (27.0-31.0) H Mean Corpuscular Hemoglobin Concent 34.5 G/DL (32.0-36.0) Red Cell Distribution Width 11.1 % (11.6-14.8) L Platelet Count 473 K/UL (150-450) H Mean Platelet Volume 5.4 FL (6.5-10.1) L Neutrophils (%) (Auto) 72.8 % (45.0-75.0) Lymphocytes (%) (Auto) 16.6 % (20.0-45.0) L Monocytes (%) (Auto) 8.0 % (1.0-10.0) Eosinophils (%) (Auto) 2.2 % (0.0-3.0) Basophils (%) (Auto) 0.5 % (0.0-2.0) Sodium Level 139 MMOL/L (136-145) Potassium Level 3.5 MMOL/L (3.5-5.1) Chloride Level 101 MMOL/L (98-107) Carbon Dioxide Level 30 MMOL/L (21-32) Anion Gap 9 mmol/L (5-15) Blood Urea Nitrogen 10 mg/dL (7-18) Creatinine 1.0 MG/DL (0.55-1.30) Estimat Glomerular Filtration Rate > 60 mL/min (>60) Glucose Level 99 MG/DL (74-106) Calcium Level 8.6 MG/DL (8.5-10.1) Phosphorus Level 3.1 MG/DL (2.5-4.9) Magnesium Level 1.9 MG/DL (1.8-2.4) Amylase Level 132 U/L (25-115) H Lipase 888 U/L (73-393) H Georgina Fields M.D. Jul 31, 2019 16:50
--- NOTE | 2019-07-31 17:09 | NUR ---
NURSE NOTES: Flagyl and Cipro prescription faxed to [facility] pharmacy [facility] Aleena Wynne notified stated she will roll picker the medication. pharmacy phone number [phone], FAx: [phone].
--- NOTE | 2019-07-31 18:26 | NUR ---
NURSE NOTES: CN verified if prescription is ready and notified next of Kin to picker and packer.
--- NOTE | 2019-08-02 15:59 | Discharge Summary ---
Discharge Summary Discharge Summary _ DATE OF ADMISSION: 07/24/2019 DATE OF DISCHARGE: 07/31/2019 ADMITTING MD: Dr. Wan Triplett DISCHARGED BY: Dr. Braxton Johnson CONSULTANTS: Dr. Braxton Sotelo [facility] COURSE: Patient is a 54-year-old gentleman, who denies any medical history and surgical history, who presented to the emergency room complaining of abdominal pain, mostly epigastric area, sharp in nature, associated with nausea and vomiting. He denies any diarrhea. He reported that the left arm started to feel tingling as well. He initially presented to the emergency room at [facility], he left and went to the hospital. He denies shortness of breath. On evaluation at ED, blood work showed WBC of 19, hemoglobin 16, hematocrit 48, platelets is 325. Sodium 137, potassium 4.1, chloride 102, bicarbonate 22, BUN 22, creatinine 1.1, glucose is 153. First and second troponin is all negative. Lipase is 270. UA is +1 protein, +3 ketone, +1 blood, many amorphous. Urine drug screen positive for marijuana. 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 CT scan of the abdomen confirmed that the patient have distended gallbladder with wall thickening with mild pericolonic inflammation changes concern about acute cholecystitis, left inguinal hernia containing fat and loops of the sigmoid colon, no evidence to suggest associated obstruction. There is some induration of the hernia contents, colonic diverticulosis, mild stranding noted in the left lower quadrant, which may be related to the above described hernia, small fat containing right inguinal hernia and a fat containing umbilical hernia, small hemangioma in the right hepatic lobe. He was then admitted for evaluation of abdominal pain with leukocytosis, most likely secondary to acute cholecystitis. He was placed on n.p.o. He was given IV hydration. He was started on IV Zosyn. ID was consulted. Zosyn was changed to ceftriaxone and Flagyl. Surgery was consulted. Patient was afebrile and hemodynamically stable. Patient was monitored for for improvement. Diet was eventually advanced to clear liquids. Abdominal ultrasound showed cholelithiasis and positive Mendenhall' s suggestive of acute cholecystitis. Patient had worsening leukocytosis and elevated amylase and lipase. Patient was placed on n.p.o. HIDA scan showed nonvisualization of the gallbladder. Suspicious for acute cholecystitis. Ceftriaxone and Flagyl was discontinued. He was given Zosyn. On 07/28/2019, he underwent laparoscopic cholecystectomy. He tolerated procedure well. Diet was advanced. First day post op, he was tolerating diet well. Patietn still with incisional pain as anticipated. He was given pain control. left inguinal hernial was noticed to be incarated. It was manually reduced by suregeon at bedside. The patient was tolerating diet. There was no nausea, vomiting, fever or chills. Wound was clean, dry and intact. He was cleared for discharge home. FINAL DIAGNOSES: Abdominal pain due to acute gallstone pancreatitis and cholelithiasis Left inguinal hernia s/p manual reduction Umbilical hernia DISPOSITION: DC home. DISCHARGE MEDICATIONS: Refer to Discharge Medication List. Cont flagyl and cipro for 5 more days DISCHARGE INSTRUCTIONS: Follow-up in a week. I have been assigned to complete a discharge summary on this account, I was not involved with the patient's management.--LORY Sutherland Jacqueline Robles NP Aug 02, 2019 15:59
== END 2019-07-31 16:19 | disposition home or self-care (01) | DRG 263 ==
LOC: EMR 04:57 → 2E 06:50 → EDBEDREQ 06:58 → 3E 07-25 15:30
PROC: 0WQF0ZZ Repair Abdominal Wall, Open Approach (ICD-10-PCS; 2019-07-28)
PROC: 0FT44ZZ Resection of Gallbladder, Percutaneous Endoscopic Approach (ICD-10-PCS; principal; 2019-07-28 09:30)
DX: K85.10 Biliary acute pancreatitis without necrosis or infection (principal); K80.00 Calculus of gallbladder with acute cholecystitis without obstruction; K57.92 Diverticulitis of intestine, part unspecified, without perforation or abscess without bleeding; K43.9 Ventral hernia without obstruction or gangrene; D18.03 Hemangioma of intra-abdominal structures; K42.9 Umbilical hernia without obstruction or gangrene; F17.200 Nicotine dependence, unspecified, uncomplicated; K40.90 Unilateral inguinal hernia, without obstruction or gangrene, not specified as recurrent
CPT/HCPCS: 36415; 71045; 74177; 76700; 78266; 80048; 80053; 80061; 80307; 81003; 82150; 82550; 82553; 83690; 83735; 84100; 84443; 84484; 85007; 85025; 85610; 85651; 85730; 86140; 87040; 93005; 93306; 94003; 94150; 94640; 94664; 96361; 96365; 99285; J2250; J2405; J7030; J7620

== ENCOUNTER 2019-08-13 08:12 | Inpatient (IN) | payer MEDICAID ==
[2019-08-13] VITALS (15 sets, daily range): BP systolic 86–176; BP diastolic 70–98
[~2019-08-13] VITALS: Ht 180.3 cm; Wt 70.3 kg
[~2019-08-13 08:12] MED LIST: ACETAMINOPHEN-1 EAC1 ORAL
--- NOTE | 2019-08-13 08:28 | NUR ---
ED Nurse Note: PT WALKED IN DUE TO LLQ ABD PAIN AND NON RADIATING FOR A COUPLE OF DAYS. DENIES N/V AND NO DIARRHEA. HX OF HERNIA. PT ALSO STATES THAT HE WAS ADMITTED HERE AT [facility] LAST WEEK FOR GALLBLADDER REMOVAL. AAO X4, AMBULATORY WITH NON LABORED BREATHING.
[2019-08-13] MEDS ORDERED: Morphine Sulfate 4mg/ml Inj (IV USE ONLY) IVP ONE ×2 (08:45→09:30)
[2019-08-13 09:00] LABS: HEMATOCRIT 40.7 % (42.0-52.0); HEMOGLOBIN 13.7 G/DL (14.2-18.0); MEAN CORPUSCULAR VOLUME 93 FL (80-99); PLATELET COUNT 590 K/UL (150-450); RED CELL DISTRIBUTION WIDTH 10.9 % (11.6-14.8); WHITE BLOOD COUNT 9.2 K/UL (4.8-10.8)
[2019-08-13 09:16] LABS: ANION GAP 9 mmol/L (5-15); BLOOD UREA NITROGEN 24 mg/dL (7-18); CALCIUM 9.5 MG/DL (8.5-10.1); CARBON DIOXIDE 30 MMOL/L (21-32); CHLORIDE 104 MMOL/L (98-107); CREATININE 1.4 MG/DL (0.55-1.30); POTASSIUM 4.6 MMOL/L (3.5-5.1); SODIUM 143 MMOL/L (136-145)
[2019-08-13 09:20] LABS: ALANINE AMINOTRANSFERASE 103 U/L (12-78); ALBUMIN 3.3 G/DL (3.4-5.0); ALBUMIN/GLOBULIN RATIO 0.7 (1.0-2.7); ALKALINE PHOSPHATASE 86 U/L (46-116); ASPARTATE AMINO TRANSFERASE 48 U/L (15-37); BILIRUBIN,TOTAL 0.4 MG/DL (0.2-1.0)
--- NOTE | 2019-08-13 09:28 | Emergency Room Report ---
History of Present Illness General Chief Complaint: Abdominal Pain Source: Patient, Medical Record Present Illness HPI Patient presents with painful left inguinal hernia for 2 days. When he was admitted for cholecystitis the hernia was noted at that time. The surgeon was unable to attend to it. The patient has been moving his bowels but does feel generalized abdominal pain. He also has some tenderness in the area where the laparoscopic cholecystectomy was performed in the right upper quadrant. He rates the pain 8/10 and mostly constant however occasionally colicky. The pain does not radiate. Patient was recently admitted and had a cholecystectomy. He was discharged August 03. Discharge diagnoses: Abdominal pain due to acute gallstone pancreatitis and cholelithiasis Left inguinal hernia s/p manual reduction Umbilical hernia No fevers, chills, sore throat, chest pain, palpitations, nausea, vomiting, diarrhea, dysuria, shortness of breath, joint pain, depression, anxiety, visual changes, dizziness, headache. The patient recently stopped smoking and drink alcohol. Allergies: Uncoded Allergies: CONTRAST (Allergy, Intermediate, rash, 08/13/19) TAPE (Allergy, Unknown, 08/13/19) Patient History Past Medical History: see triage record, old chart reviewed Past Surgical History: maria del carmen Social History: Denies: smoking, alcohol use Social History Narrative Auto detail Reviewed Nursing Documentation: PMH: Agreed; PSxH: Agreed Nursing Documentation-PMH Past Medical History: No History, Except For Hx Cardiac Problems: No Hx Cancer: No Hx Neurological Problems: No Review of Systems All Other Systems: negative except mentioned in HPI Physical Exam Vital Signs Date Time Temp Pulse Resp B/P (MAP) Pulse Ox O2 Delivery O2 Flow Rate FiO2 08/13/19 08:18 97.9 85 18 118/86 (97) 97 Room Air Sp02 EP Interpretation: reviewed, normal General Appearance: well appearing, no apparent distress, GCS 15 Head: normocephalic Eyes: bilateral eye normal inspection, bilateral eye PERRL, bilateral eye EOMI ENT: moist mucus membranes Neck: supple Respiratory: lungs clear, normal breath sounds Cardiovascular #1: regular rate, rhythm Cardiovascular #2: 2+ radial (R) Gastrointestinal: no rebound, tenderness - Mid abdomen, hernia - Left inguinal descending anterior scrotal sac, other - Bowel sounds and hernia, scaphoid Genitourinary: other - Hernia and left scrotal sac Musculoskeletal: back normal, gait/station normal, normal range of motion Neurologic: alert, oriented x3, grossly normal Psychiatric: mood/affect normal Skin: other - Post cholecystectomy scars abdomen Procedures Additional Procedure Procedure Narrative Left inguinal hernia reduction: After receiving analgesia the left inguinal hernia was partially reduced, approximately 80% with direct pressure. Unable to fully reduce the inguinal hernia Medical Decision Making Diagnostic Impression: Primary Impression: Left inguinal hernia Additional Impression: Renal insufficiency ER Course Patient presents with a left inguinal hernia. Differential includes strangulation, incarceration, unreduced left inguinal hernia amongst others. Concern about possibility of small bowel obstruction. Labs are indicated. In addition patient will receive analgesia. Attempts to reduce the hernia will be performed. Labs with normal white count. Renal insufficiency. Minimally elevated lipase. Attempt reduce hernia - 80% reduced. Repeat morphine. Patient able to reduce his own hernia. However at this time he complained about mid abdominal pain. Whenever he would stand up the hernia would slide out again. Discussed with Dr. Farooq who will take the patient to the operating room. Laboratory Tests Test 08/13/19 08:40 08/13/19 10:00 08/14/19 05:30 White Blood Count 9.2 K/UL (4.8-10.8) 16.7 K/UL (4.8-10.8) #H Red Blood Count 4.40 M/UL (4.70-6.10) L 3.93 M/UL (4.70-6.10) L Hemoglobin 13.7 G/DL (14.2-18.0) L 12.7 G/DL (14.2-18.0) L Hematocrit 40.7 % (42.0-52.0) L 36.6 % (42.0-52.0) L Mean Corpuscular Volume 93 FL (80-99) 93 FL (80-99) Mean Corpuscular Hemoglobin 31.2 PG (27.0-31.0) H 32.2 PG (27.0-31.0) H Mean Corpuscular Hemoglobin Concent 33.8 G/DL (32.0-36.0) 34.6 G/DL (32.0-36.0) Red Cell Distribution Width 10.9 % (11.6-14.8) L 11.0 % (11.6-14.8) L Platelet Count 590 K/UL (150-450) H 504 K/UL (150-450) H Mean Platelet Volume 5.7 FL (6.5-10.1) L 5.8 FL (6.5-10.1) L Neutrophils (%) (Auto) 62.0 % (45.0-75.0) % (45.0-75.0) Lymphocytes (%) (Auto) 27.0 % (20.0-45.0) % (20.0-45.0) Monocytes (%) (Auto) 8.0 % (1.0-10.0) % (1.0-10.0) Eosinophils (%) (Auto) 2.0 % (0.0-3.0) % (0.0-3.0) Basophils (%) (Auto) 1.0 % (0.0-2.0) % (0.0-2.0) Sodium Level 143 MMOL/L (136-145) 137 MMOL/L (136-145) Potassium Level 4.6 MMOL/L (3.5-5.1) 4.8 MMOL/L (3.5-5.1) Chloride Level 104 MMOL/L (98-107) 102 MMOL/L (98-107) Carbon Dioxide Level 30 MMOL/L (21-32) 28 MMOL/L (21-32) Anion Gap 9 mmol/L (5-15) 7 mmol/L (5-15) Blood Urea Nitrogen 24 mg/dL (7-18) H 21 mg/dL (7-18) H Creatinine 1.4 MG/DL (0.55-1.30) H 1.4 MG/DL (0.55-1.30) H Estimate Glomerular Filtration Rate 52.4 mL/min (>60) 52.4 mL/min (>60) Glucose Level 109 MG/DL (74-106) H 139 MG/DL (74-106) H Calcium Level 9.5 MG/DL (8.5-10.1) 9.0 MG/DL (8.5-10.1) Total Bilirubin 0.4 MG/DL (0.2-1.0) Aspartate Amino Transferase (AST) 48 U/L (15-37) H Alanine Aminotransferase (ALT) 103 U/L (12-78) H Alkaline Phosphatase 86 U/L (46-116) Total Protein 8.1 G/DL (6.4-8.2) Albumin 3.3 G/DL (3.4-5.0) L Globulin 4.8 g/dL Albumin/Globulin Ratio 0.7 (1.0-2.7) L Lipase 409 U/L (73-393) H Urine Color Pale yellow Urine Appearance Clear Urine pH 7 (4.5-8.0) Urine Specific [place] 1.005 (1.005-1.035) Urine Protein Negative (NEGATIVE) Urine Glucose (UA) Negative (NEGATIVE) Urine Ketones Negative (NEGATIVE) Urine Blood Negative (NEGATIVE) Urine Nitrite Negative (NEGATIVE) Urine Bilirubin Negative (NEGATIVE) Urine Urobilinogen Normal MG/DL (0.0-1.0) Urine Leukocyte Esterase 1+ (NEGATIVE) H Urine RBC 0-2 /HPF (0 - 0) H Urine WBC 2-4 /HPF (0 - 0) Urine Squamous Epithelial Cells Occasional /LPF Urine Bacteria Occasional /HPF (NONE) Differential Total Cells Counted 100 Neutrophils % (Manual) 83 % (45-75) H Lymphocytes % (Manual) 8 % (20-45) L Monocytes % (Manual) 7 % (1-10) Eosinophils % (Manual) 1 % (0-3) Basophils % (Manual) 1 % (0-2) Band Neutrophils 0 % (0-8) Platelet Estimate Adequate Platelet Morphology Normal Red Blood Cell Morphology Normal Rhythm Strip Diag. Results EP Interpretation: yes Rhythm: NSR, no PVC's, no ectopy Last Vital Signs Date Time Temp Pulse Resp B/P (MAP) Pulse Ox O2 Delivery O2 Flow Rate FiO2 08/13/19 08:40 97.9 82 19 138/81 100 Room Air Status: improved Disposition: ADMITTED INPATIENT Condition: Serious Referrals: Wan Triplett MD (PCP) Gato Doss MD Aug 13, 2019 09:28
--- NOTE | 2019-08-13 09:50 | NUR ---
ED Nurse Note: INFORMED PT THAT HE NEEDS TO BE ON BED REST PER ERMD ORDER. PT VERBALIZED UNDERSTANDING OF TEACHING.
--- NOTE | 2019-08-13 10:04 | NUR ---
ED Nurse Note: COLLECTED URINE THEN SENT.
[2019-08-13 10:30] LABS: APPEARANCE,URINE CLEAR; BILIRUBIN, URINE NEGATIVE (NEGATIVE); COLOR,URINE PALE YELLOW; GLUCOSE, URINE (UA) NEGATIVE (NEGATIVE); KETONES,URINE NEGATIVE (NEGATIVE); LEUKOCYTE ESTERASE ,URINE 1+ (NEGATIVE); NITRITE,URINE NEGATIVE (NEGATIVE); PH,URINE 7 (4.5-8.0); PROTEIN,URINE NEGATIVE (NEGATIVE); UROBILINOGEN,URINE NORMAL MG/DL (0.0-1.0)
--- NOTE | 2019-08-13 11:03 | NUR ---
ED Nurse Note: PT STATES THAT HIS PAIN AT THIS TIME IN IN HIS UPPER STOMACH. DR BARRERA NOTIFIED WITH NO NEW ORDERS.
[2019-08-13] MEDS ORDERED: Mylanta II UD 30ml ORAL ONE (11:30)
[2019-08-13] MEDS ORDERED: Bacitracin 50000 Units Vial ONE (13:18)
--- NOTE | 2019-08-13 13:23 | NUR ---
ED Nurse Note: REPORT GIVEN OF SURGERY DEPARTMENT.
[2019-08-13] MEDS ORDERED: Dexamethasone 4mg/ml vial ONE (13:26)
[2019-08-13] MEDS ORDERED: Propofol 200mg/20ml IV ONE (13:26)
[2019-08-13] MEDS ORDERED: fentaNYL 100 mcg/2 mL IV ONE (13:27)
[2019-08-13] MEDS ORDERED: Midazolam 2mg/2ml Inj ONE (13:27)
[2019-08-13] MEDS ORDERED: LR 1000ml 1,000 ML IVLG SCH (13:38)
--- NOTE | 2019-08-13 13:39 | Anethesia Preoperative Eval ---
Anesthesia Pre-op PMH/ROS General Date of Evaluation: Aug 13, 2019 Time of Evaluation: 13:41 Anesthesiologist: Jose Alejandro ASA Score: ASA 2 Mallampati Score Class I : Soft palate, uvula, fauces, pillars visible Class II: Soft palate, uvula, fauces visible Class III: Soft palate, base of uvula visible Class IV: Only hard plate visible Mallampati Classification: Class II Surgeon: Capri Diagnosis: Abd Pain Surgical Procedure: Inguinal Hernia Repair Anesthesia History: none Family History: no anesthesia problems Allergies: Uncoded Allergies: CONTRAST (Allergy, Intermediate, rash, 08/13/19) TAPE (Allergy, Unknown, 08/13/19) Medications: see eMAR Patient NPO?: Yes Past Medical History Pulmonary: Reports: COPD Gastrointestinal/Genitourinary: Reports: GERD PSxH Narrative: Elke Tyra Anesthesia Pre-op Phys. Exam Physician Exam Last Vital Signs Date Time Temp Pulse Resp B/P (MAP) Pulse Ox O2 Delivery O2 Flow Rate FiO2 08/13/19 13:23 98.5 82 17 135/72 100 Room Air Constitutional: NAD Neurologic: CN 2-12 intact Cardiovascular: RRR Respiratory: CTA Gastrointestinal: S/NT/ND Airway Exam Mallampati Score: Class II MO: full ROM: full Teeth: missing, intact Anesthesia Pre-op A/P Labs Hematology Test 08/13/19 08:40 White Blood Count 9.2 K/UL (4.8-10.8) Red Blood Count 4.40 M/UL (4.70-6.10) L Hemoglobin 13.7 G/DL (14.2-18.0) L Hematocrit 40.7 % (42.0-52.0) L Mean Corpuscular Volume 93 FL (80-99) Mean Corpuscular Hemoglobin 31.2 PG (27.0-31.0) H Mean Corpuscular Hemoglobin Concent 33.8 G/DL (32.0-36.0) Red Cell Distribution Width 10.9 % (11.6-14.8) L Platelet Count 590 K/UL (150-450) H Mean Platelet Volume 5.7 FL (6.5-10.1) L Neutrophils (%) (Auto) 62.0 % (45.0-75.0) Lymphocytes (%) (Auto) 27.0 % (20.0-45.0) Monocytes (%) (Auto) 8.0 % (1.0-10.0) Eosinophils (%) (Auto) 2.0 % (0.0-3.0) Basophils (%) (Auto) 1.0 % (0.0-2.0) Chemistry Test 08/13/19 08:40 Sodium Level 143 MMOL/L (136-145) Potassium Level 4.6 MMOL/L (3.5-5.1) Chloride Level 104 MMOL/L (98-107) Carbon Dioxide Level 30 MMOL/L (21-32) Anion Gap 9 mmol/L (5-15) Blood Urea Nitrogen 24 mg/dL (7-18) H Creatinine 1.4 MG/DL (0.55-1.30) H Estimat Glomerular Filtration Rate 52.4 mL/min (>60) Glucose Level 109 MG/DL (74-106) H Calcium Level 9.5 MG/DL (8.5-10.1) Total Bilirubin 0.4 MG/DL (0.2-1.0) Aspartate Amino Transf (AST/SGOT) 48 U/L (15-37) H Alanine Aminotransferase (ALT/SGPT) 103 U/L (12-78) H Alkaline Phosphatase 86 U/L (46-116) Total Protein 8.1 G/DL (6.4-8.2) Albumin 3.3 G/DL (3.4-5.0) L Globulin 4.8 g/dL Albumin/Globulin Ratio 0.7 (1.0-2.7) L Lipase 409 U/L (73-393) H Pre-Antibiotics Dru gram Ancef IV Given Within 1 Hr of Incision: Yes Time Given: 13:56 Mirza Scott MD Aug 13, 2019 13:39
[2019-08-13] MEDS ORDERED: Midazolam 2mg/2ml Inj IVP PRN (13:45)
[2019-08-13] MEDS ORDERED: Metoclopramide 10mg/2ml Inj IVP PRN (13:45)
[2019-08-13] MEDS ORDERED: Hydromorphone 0.5mg/0.5ml inj IVP PRN (13:45)
[2019-08-13] MEDS ORDERED: HYDROcodone/Acetamin 7.5/325 tab ORAL PRN (13:45)
[2019-08-13] MEDS ORDERED: Atropine Sulfate 0.4mg/ml inj IVP PRN (13:45)
[2019-08-13] MEDS ORDERED: Labetalol 5mg/ml 20ml vial IV PRN (13:45)
[2019-08-13] MEDS ORDERED: fentaNYL 100 mcg/2 mL IV PRN (13:45)
[2019-08-13] MEDS ORDERED: DiphenhydrAMINE 50mg/ml Inj IVP PRN (13:45)
[2019-08-13] MEDS ORDERED: Meperidine 50mg/ml Inj(FOR RIGORS ONLY) IVP PRN (13:45)
[2019-08-13] MEDS ORDERED: LORazepam Inj 2mg/ml 1ml IV PRN (13:45)
[2019-08-13] MEDS ORDERED: Acetaminophen (Non formulary) 100 ML IV ONE (13:45)
[2019-08-13] MEDS ORDERED: HYDROcodone/Acetamin 5/325 tab ORAL PRN ×2 (13:45→16:15)
[2019-08-13] MEDS ORDERED: oxyCODONE HCL/Acetaminophen 5/325mg ORAL PRN (13:45)
[2019-08-13] MEDS ORDERED: Ketorolac 30mg Inj IV PRN ×2 (13:45)
--- NOTE | 2019-08-13 13:57 | Consultation ---
History of Present Illness General Date patient seen: Aug 13, 2019 Reason for Hospitalization: Abdominal Pain Present Illness HPI 54M well known to me from prior admission and surgery. Patient prior presented with acute maria del carmen not improving with medical care requiring lap maria del carmen on urgent basis in patient hospital stay. recovered well but on POD#1 had incarcerated left inguinal hernia down to scrotal sac. was fortunately able to reduce at the time and given size, extent, recommended repair once recovered from surgery. patient discharged safely and instructed to return if worsening condition. came to ED today with acute incarceration of hernia. states since last episode has been aware of it and is "always" recurring but he has been able to reduce it. today was unable to reduce and came to ED. was partially reduced by ED physician and I was called to evaluate. I was able to notice partial reduction but with minimal core movement was recurred and into scrotal sac with bowel. no complete resolution safe for d/c and recommend admit and OR repair as this is becoming more of an acute issue. Allergies: Uncoded Allergies: CONTRAST (Allergy, Intermediate, rash, 08/13/19) TAPE (Allergy, Unknown, 08/13/19) Medication History Scheduled PRN Acetaminophen With Codeine (T#3) (Tylenol #3 Tab*), 1 TAB ORAL Q4H PRN Patient History History Provided By: Patient, Medical Record, PMD Healthcare decision maker Resuscitation status Advanced Directive on File Past Medical/Surgical History Past Medical/Surgical History: (1) Diverticulitis (2) No pertinent past medical history (3) Abdominal pain (4) Left inguinal hernia Review of Systems Review of Symptoms General ROS: no weight loss or fever Psychological ROS: no depression or mood changes, no memory loss Ophthalmic ROS: no visual changes or eye irritation ENT ROS: no nasal congestion, hearing loss, dizziness Allergy and Immunology ROS: no allergic symptoms or urticaria Hematological and Lymphatic ROS: no swollen glands, unusual bleeding or bruising Endocrine ROS: no polyuria, polydipsia, weight changes, temperature intolerance Respiratory ROS: no cough, shortness of breath, or wheezing Cardiovascular ROS: no chest pain or dyspnea on exertion Gastrointestinal ROS: denies abdominal pain, bright red blood in stool. Musculoskeletal ROS: no myalgias or arthralgias Neurological ROS: no TIA or stroke symptoms Dermatological ROS: no new or changing skin lesions, rashes or pruritis Physical Exam Physical Exam General appearance: alert, cooperative, no distress, appears stated age Head: Normocephalic, without obvious abnormality, atraumatic Eyes: conjunctivae/corneas clear. PERRL, EOM's intact. Fundi benign Throat: Lips, mucosa, and tongue normal. Teeth and gums normal Neck: supple, symmetrical, trachea midline, no adenopathy, thyroid: not enlarged, symmetric, no tenderness/mass/nodules, no carotid bruit and no JVD Lungs: clear to auscultation bilaterally Heart: regular rate and rhythm, S1, S2 normal, no murmur, click, rub or gallop Abdomen: soft, non-tender. Bowel sounds normal. No masses, no organomegaly, partially incarcerated left inguinal hernia Extremities: extremities normal, atraumatic, no cyanosis or edema Pulses: 2+ and symmetric Skin: Skin color, texture, turgor normal. No rashes or lesions Neurologic: Grossly normal Last 24 Hour Vital Signs Date Time Temp Pulse Resp B/P (MAP) Pulse Ox O2 Delivery O2 Flow Rate FiO2 08/13/19 13:23 98.5 82 17 135/72 100 Room Air 08/13/19 10:46 98.1 74 15 128/77 99 Room Air 08/13/19 10:31 98.1 08/13/19 09:13 97.8 08/13/19 08:40 97.9 82 19 138/81 100 Room Air 08/13/19 08:28 79 15 Room Air 08/13/19 08:18 97.9 85 18 118/86 (97) 97 Room Air Laboratory Tests Test 08/13/19 08:40 08/13/19 10:00 White Blood Count 9.2 K/UL (4.8-10.8) Red Blood Count 4.40 M/UL (4.70-6.10) L Hemoglobin 13.7 G/DL (14.2-18.0) L Hematocrit 40.7 % (42.0-52.0) L Mean Corpuscular Volume 93 FL (80-99) Mean Corpuscular Hemoglobin 31.2 PG (27.0-31.0) H Mean Corpuscular Hemoglobin Concent 33.8 G/DL (32.0-36.0) Red Cell Distribution Width 10.9 % (11.6-14.8) L Platelet Count 590 K/UL (150-450) H Mean Platelet Volume 5.7 FL (6.5-10.1) L Neutrophils (%) (Auto) 62.0 % (45.0-75.0) Lymphocytes (%) (Auto) 27.0 % (20.0-45.0) Monocytes (%) (Auto) 8.0 % (1.0-10.0) Eosinophils (%) (Auto) 2.0 % (0.0-3.0) Basophils (%) (Auto) 1.0 % (0.0-2.0) Sodium Level 143 MMOL/L (136-145) Potassium Level 4.6 MMOL/L (3.5-5.1) Chloride Level 104 MMOL/L (98-107) Carbon Dioxide Level 30 MMOL/L (21-32) Anion Gap 9 mmol/L (5-15) Blood Urea Nitrogen 24 mg/dL (7-18) H Creatinine 1.4 MG/DL (0.55-1.30) H Estimat Glomerular Filtration Rate 52.4 mL/min (>60) Glucose Level 109 MG/DL (74-106) H Calcium Level 9.5 MG/DL (8.5-10.1) Total Bilirubin 0.4 MG/DL (0.2-1.0) Aspartate Amino Transf (AST/SGOT) 48 U/L (15-37) H Alanine Aminotransferase (ALT/SGPT) 103 U/L (12-78) H Alkaline Phosphatase 86 U/L (46-116) Total Protein 8.1 G/DL (6.4-8.2) Albumin 3.3 G/DL (3.4-5.0) L Globulin 4.8 g/dL Albumin/Globulin Ratio 0.7 (1.0-2.7) L Lipase 409 U/L (73-393) H Urine Color Pale yellow Urine Appearance Clear Urine pH 7 (4.5-8.0) Urine Specific [place] 1.005 (1.005-1.035) Urine Protein Negative (NEGATIVE) Urine Glucose (UA) Negative (NEGATIVE) Urine Ketones Negative (NEGATIVE) Urine Blood Negative (NEGATIVE) Urine Nitrite Negative (NEGATIVE) Urine Bilirubin Negative (NEGATIVE) Urine Urobilinogen Normal MG/DL (0.0-1.0) Urine Leukocyte Esterase 1+ (NEGATIVE) H Urine RBC 0-2 /HPF (0 - 0) H Urine WBC 2-4 /HPF (0 - 0) Urine Squamous Epithelial Cells Occasional /LPF Urine Bacteria Occasional /HPF (NONE) Microbiology Date/Time Source Procedure Growth Status 08/13/19 13:00 Rectum Received Height (Feet): 5 Height (Inches): 11.00 Weight (Pounds): 155 Medications Current Medications Medications (Trade) Dose Ordered Sig/Mckenzie Route PRN Reason Start Time Stop Time Status Last Admin Dose Admin Acetaminophen 100 ml @ 400 mls/hr NOW ONCE IV 08/13/19 13:45 08/13/19 13:59 Acetaminophen/ Hydrocodone Bitart ([place] 5/325) 1 tab Q1H PRN ORAL Mild Pain (Pain Scale 1-3) 08/13/19 13:45 08/13/19 21:00 Acetaminophen/ Hydrocodone Bitart ([place] 7.5/325) 1 tab Q1H PRN ORAL Moderate Pain (Pain Scale 4-6) 08/13/19 13:45 08/13/19 21:00 Al Hydroxide/Mg Hydroxide (Mylanta) 15 ml Q1H PRN ORAL gi upset 08/13/19 13:45 08/13/19 21:00 Atropine Sulfate (Atropine 0.4mg/ ml) 0.5 mg Q5M PRN IVP HR<40 08/13/19 13:45 08/13/19 21:00 Diphenhydramine HCl (Benadryl) 25 mg Q15M PRN IVP Itching 08/13/19 13:45 08/13/19 21:00 Fentanyl Citrate (Sublimaze 100 mcg/2 mL) 25 mcg Q10M PRN IV Moderate Pain (Pain Scale 4-6) 08/13/19 13:45 08/13/19 21:00 Hydralazine HCl (Apresoline) 5 mg Q30M PRN IV SBP>160 / DBP>90 08/13/19 13:45 08/13/19 21:00 Hydromorphone HCl (Dilaudid) 0.5 mg Q15M PRN IVP Severe Pain (Pain Scale 7-10) 08/13/19 13:45 08/13/19 21:00 Ketorolac Tromethamine (Toradol 30mg) 15 mg Q1H PRN IV Moderate Breakthru Pain (5-7) 08/13/19 13:45 08/13/19 21:00 Ketorolac Tromethamine (Toradol 30mg) 30 mg Q1H PRN IV Severe Breakthru Pain (>7) 08/13/19 13:45 08/13/19 21:00 Labetalol HCl (Normodyne) 5 mg Q10M PRN IV SBP>160 / DBP>90 08/13/19 13:45 08/13/19 21:00 Lactated Ringer's 1,000 ml @ 10 mls/hr Q24H IVLG 08/13/19 13:38 08/13/19 15:37 Lorazepam (Ativan 2mg/ml 1ml) 1 mg Q15M PRN IV For Anxiety 08/13/19 13:45 08/13/19 21:00 Meperidine HCl (Demerol) 25 mg Q5M PRN IVP Shivering.May repeat x 1 08/13/19 13:45 08/13/19 21:00 Metoclopramide HCl (Reglan) 10 mg Q1H PRN IVP Nausea & Vomiting 08/13/19 13:45 08/13/19 21:00 Midazolam HCl (Versed 2mg/2ml vial) 1 mg Q15M PRN IVP For Anxiety 08/13/19 13:45 08/13/19 21:00 Ondansetron HCl (Zofran) 4 mg Q1H PRN IVP Nausea & Vomiting 08/13/19 13:45 08/13/19 21:00 Oxycodone/ Acetaminophen (Percocet 5-325) 1 tab Q1H PRN ORAL Severe Pain (Pain Scale 7-10) 08/13/19 13:45 08/13/19 21:00 Assessment/Plan Problem List: (1) Incarcerated left inguinal hernia Assessment & Plan: was partially reduced by ED physician and I was called to evaluate. I was able to notice partial reduction but with minimal core movement was recurred and into scrotal sac with bowel. no complete resolution safe for d/c and recommend admit and OR repair as this is becoming more of an acute issue. required narcotic pain meds for partial reduction unfortunately given size, history, condition, exam, needs repair as not safe to wait for elective outpatient repair in this condition npo iv fluids iv abx to OR for left inguinal hernia repair with mesh thank you ICD Codes: K40.30 - Unilateral inguinal hernia, with obstruction, without gangrene, not specified as recurrent SNOMED: 416050585 (2) Left inguinal hernia ICD Codes: K40.90 - Unilateral inguinal hernia, without obstruction or gangrene , not specified as recurrent SNOMED: 033235222 Shelton Farooq Aug 13, 2019 13:57
--- NOTE | 2019-08-13 13:57 | Pre-Procedure Note/Attestation ---
Pre-Procedure Note/Attestation Complete Prior to Procedure Planned Procedure: left Procedure Narrative: left inguinal hernia repair with mesh Indications for Procedure Pre-Operative Diagnosis: incarcerated left inguinal hernia Attestation I attest that I discussed the nature of the procedure; its benefits; risks and complications; and alternatives (and the risks and benefits of such alternatives ), prior to the procedure, with the patient (or the patient's legal loss control representative). I attest that, if there was a reasonable possibility of needing a blood transfusion, the patient (or the patient's legal loss control representative) was given the [facility] standardized written summary, pursuant to the [place] Prema Blood Safety Act ([place] Health and Safety Code # 1645, as amended). I attest that I re-evaluated the patient just prior to the surgery and that there has been no change in the patient's H&P, except as documented below: Shelton Farooq Aug 13, 2019 13:57
[2019-08-13] MEDS ORDERED: Rocuronium Bromide 50mg/5ml Inj IV ONE (14:00)
[2019-08-13] MEDS ORDERED: Sterile Water Irrig 1000ml IRRIG ONE (14:00)
[2019-08-13] MEDS ORDERED: NS Irrig 1000ml ONE (14:00)
[2019-08-13] MEDS ORDERED: LR 1000ml ONE (14:00)
--- NOTE | 2019-08-13 14:17 | Immediate Post-Op Evaluation ---
Immediate Post-Op Evalulation Immediate Post-Op Evalulation Procedure: L Inguinal Hernia Repair Date of Evaluation: Aug 13, 2019 Time of Evaluation: 15:17 IV Fluids: 300 LR Blood Products: 0 Estimated Blood Loss: 10 Urinary Output: 0 Blood Pressure Systolic: 155 Blood Pressure Diastolic: 93 Pulse Rate: 78 Respiratory Rate: 16 O2 Sat by Pulse Oximetry: 100 Temperature (Fahrenheit): 97.6 Pain Score (1-10): 2 Nausea: No Vomiting: No Complications 0 Patient Status: awake, reacts, patent, extubated, none Hydration Status: adequate Dru Gram Ancef IV Given Within 1 Hr of Incision: Yes Time Given: 13:56 Mirza Scott MD Aug 13, 2019 14:17
[2019-08-13] MEDS ORDERED: Neostigmine 1mg/ml 10ml Inj ONE (14:21)
[2019-08-13] MEDS ORDERED: Glycopyrrolate 0.2mg/ml 1ml Vial ONE (14:21)
[2019-08-13] MEDS ORDERED: HYDROcodone/Acetamin 10/325 tab ORAL PRN (16:15)
[2019-08-13] MEDS ORDERED: Morphine Sulfate 2mg/ml Inj(IV/IM USE ONLY) IVP PRN (16:15)
[2019-08-13] MEDS ORDERED: Milk of Magnesia 30ml Ud ORAL PRN (16:15)
--- NOTE | 2019-08-13 16:25 | Brief Operative Note ---
Immediate Post Operative Note Operative Note Pre-op Diagnosis: incarcerated left inguinal hernia Procedure: left inguinal hernia repair with mesh Post-op Diagnosis: same as pre-op Surgeon: fabrizio Anesthesiologist: chaka Anesthesia: general, local Specimen: yes Complications: none Condition: stable Fluids: see record Estimated Blood Loss: minimal Drains: none Implant(s) used?: Yes Shelton Farooq Aug 13, 2019 16:25
--- NOTE | 2019-08-13 16:30 | NUR ---
NURSE NOTES: Patient arrived to unit at 1610 via bed, report received from Macey RN, no acute distress noted, patient is reporting mild pain at surgical site, ice pack placed. Patient is on room air. Surgical site clean, dry, intact. IV intact, patent, SCD's in place. VS assessed and stable. Belongings checked and verified with second RN. Patient oriented to room, provided with urinal, needs met at this time. Side rails upx3, bed low and locked, call light within reach.
[2019-08-13] MEDS: D5 1/2NS w/KCl 20mEq 1,000 ML IV SCH (18:17)
[2019-08-13] MEDS: Docusate 100mg cap ORAL SCH (18:17)
--- NOTE | 2019-08-13 19:30 | NUR ---
HAND-OFF: Report given to Nell LOGAN.
--- NOTE | 2019-08-13 19:45 | NUR ---
NURSE NOTES: Received report from DESMOND Bahena. Patient alert, oriented x4. Naresh PO well, has not voided yet. IV in R AC on IVF, patent. Bed in low position, locked, side rails up x2, call light within reach. Will continue to monitor.
--- NOTE | 2019-08-13 21:02 | Operative Note - Dictated ---
DATE OF OPERATION: 08/13/2019 PREOPERATIVE DIAGNOSIS: Left incarcerated inguinal hernia. POSTOPERATIVE DIAGNOSIS: Left incarcerated sliding sigmoid colon inguinal hernia, indirect. OPERATION PERFORMED: 1. Left inguinal hernia repair with mesh. 2. Implantation of mesh. ATTENDING SURGEON: Shelton Farooq M.D. GLAZE WIPER: None. ANESTHESIOLOGIST: Mirza Scott M.D. ANESTHESIA: General GETA plus local. ESTIMATED BLOOD LOSS: Minimal. IV FLUIDS: Please see anesthesia records. COMPLICATIONS: None. DRAINS: None. COUNTS: Sponge and needle count correct x2. WOUND CONSULTATION: Class 1. ANTIBIOTICS: A 2 g Ancef IV given 1 hour prior to cut time. IMPLANTS: Bard mesh PerFix plug XL, reference [id number], lot [id number], expiration 04/03/2024. INDICATIONS FOR PROCEDURE: This is a 54-year-old male well known to me from prior admission and surgery. The patient few weeks ago presented with acute cholecystitis, which was refractory to medical treatment and required surgical intervention, laparoscopic cholecystectomy. Postop day #1, the patient identified to have incarcerated left inguinal hernia that was symptomatic and tender. Fortunately it was able to be reduced and after reduction strongly recommended to follow up with primary care physician via outpatient care for this. I expressed the patient in the event that it becomes incarcerated, strangulated, tender, or if significantly symptomatic return to emergency department as soon as possible. The patient has been recovering since and presented to the emergency department at [facility] today complaining of acute pain in the left groin. He states that since last discharge, he has had hernia and it has been reducible and he has made ensure to keep it reduced as much as possible, but it was unreducible today and causing more discomfort. On evaluation in emergency department, it was partially reduced by the emergency room physician, but remained and noted to be easily sliding. Same with my examination; therefore, it was strongly recommended to go to the operating room for surgical intervention. Risks, benefits, and alternatives were discussed with the patient in detail who expressed understanding and consented to the surgery. The patient was taken directly from the emergency department to the operating room. OPERATIVE NOTE: The patient taken to the operating room and placed on the operating room table in supine position with bilateral arms out. All bony prominences well padded. SCDs were placed. Preoperative time-out was taken identifying the patient, procedure, operative staff, and surgical staff. General anesthesia was induced and the patient was intubated. The left groin was clipped, prepped and draped in standard surgical fashion. Anatomic landmarks were identified. Local anesthetic was infiltrated in the proposed skin incision. A skin incision was made and carried down through the subcutaneous tissue to the external oblique aponeurosis which was incised and opened using Metzenbaum scissors in direction of fibers. Flaps were made toward the inguinal ligament and the conjoined tendon. The spermatic cord was carefully dissected out and a Saumya drain placed around it and protected throughout the entire procedure. The nerve was identified and protected through the entire procedure. The cord structures were identified and protected through the entire procedure. A inguinal hernia sac was clearly identified and dissected out. The sac contained sigmoid colon which was easily found extending down into the scrotum through a large hernia sac. The majority of the colon was densely adhesed to the sac that was reducible and sliding. At this time, the sac was divided and a portion sent to pathology for review. The sac contents were evaluated and noted to be healthy and sac closed and reduced into the abdomen. A Bard extra-large plug was placed into large canal defect and sutured in place using 2-0 Prolene sutures. Following this, a pre-cut Bard mesh was placed and sutured to the shelving edge of inguinal ligament with running 2-0 Prolene, followed by interrupted to the conjoined tendon. A good tension-free mesh hernia repair was identified around the procedure, it was satisfactory and complete. The external oblique fascia was reapproximated using a 3-0 Vicryl running suture followed by 3-0 interrupted sutures to reapproximate Bennie's fascia. Skin incision was reapproximated using 4-0 Monocryl running suture. Skin glue and Steri-Strips were applied. The patient tolerated the procedure well, was extubated and taken to postanesthetic care unit in stable condition. It was clearly identified the patient had both testicles in the appropriate position at end of the procedure. Shelton Farooq M.D. DR: Lorelei JOB#: [id number] CC:
[2019-08-13] MEDS: ceFAZolin sod 2 GM in D5W 110 ML IV SCH (22:24)
[2019-08-13] MEDS: Morphine Sulfate 2mg/ml Inj(IV/IM USE ONLY) IVP PRN (22:24)
--- NOTE | 2019-08-13 22:30 | NUR ---
NURSE NOTES: Patient ambulated to bathroom without difficulty and voided. States it was small amount, not measured. Bladder palpated, soft. Encouraged to drink fluids. Will continue to monitor.
[2019-08-14] VITALS: BP 122/74
--- NOTE | 2019-08-14 03:50 | NUR ---
NURSE NOTES: Patient voided 150 cc, clear yellow urine. Checked PVR: 971 cc. Consulted with charge nurse and called Dr Triplett (primary) obtained order for straight cath.
[2019-08-14 04:00] VITALS: BP 117/70
[2019-08-14] MEDS: Morphine Sulfate 2mg/ml Inj(IV/IM USE ONLY) IVP PRN ×3 (04:06→13:03)
--- NOTE | 2019-08-14 04:30 | NUR ---
NURSE NOTES: Straight cath was done by DESMOND Quintana. Patient tolerated very well, obtained 1150 cc of clear yellow urine.
[2019-08-14] MEDS: ceFAZolin sod 2 GM in D5W 110 ML IV SCH (06:27)
[2019-08-14 06:42] LABS: HEMATOCRIT 36.6 % (42.0-52.0); HEMOGLOBIN 12.7 G/DL (14.2-18.0); MEAN CORPUSCULAR VOLUME 93 FL (80-99); PLATELET COUNT 504 K/UL (150-450); RED BLOOD COUNT 3.93 M/UL (4.70-6.10); WHITE BLOOD COUNT 16.7 K/UL (4.8-10.8)
[2019-08-14 06:48] LABS: ANION GAP 7 mmol/L (5-15); BLOOD UREA NITROGEN 21 mg/dL (7-18); CARBON DIOXIDE 28 MMOL/L (21-32); CHLORIDE 102 MMOL/L (98-107); CREATININE 1.4 MG/DL (0.55-1.30); POTASSIUM 4.8 MMOL/L (3.5-5.1); SODIUM 137 MMOL/L (136-145)
[2019-08-14] MEDS: Tamsulosin 0.4mg cap ORAL SCH (07:07)
--- NOTE | 2019-08-14 07:45 | NUR ---
HAND-OFF: Report given to DESMOND Wharton. Rounds done
[2019-08-14 08:00] VITALS: BP 124/78
--- NOTE | 2019-08-14 08:08 | NUR ---
NURSE NOTES: received report from DESMOND Camejo. Patient in bed. alert, oriented. verbally responsive. no respiratory distress noted. mild discomfort on surgery site. c/o headache 06/16.patient wants try hot pack first and if not work, he will ask medication for headache. IV on RFA running d51/2ns 20meq@75/hr. no discomfort urination at this time. no urgency noted. bed in the lowest position. call light within reach. will continue to provide plan of care.
[2019-08-14] MEDS: Docusate 100mg cap ORAL SCH ×2 (08:22→17:50)
[2019-08-14] MEDS: D5 1/2NS w/KCl 20mEq 1,000 ML IV SCH (08:22)
--- NOTE | 2019-08-14 09:30 | NUR ---
NURSE NOTES: patient walked hallway with PT. tolerated well. RN ordered ABD binder for comfort.
--- NOTE | 2019-08-14 09:45 | NUR ---
PT EVALUATION NOTE Patient seen for initial evaluation, see complete evaluation for details. Patient presents with impaired functional mobility s/p hernia repair. Patient requires min assist for bed mobility and for transfers, no assistive device needed. Patient able to ambulate 175 ft with CGA, no AD. Patient slightly unsteady during ambulation however no loss of balance. Recommend discharge home once medically cleared by MD. No DME needs identified at this time. Addendum: 08/14/19 at 1303 by SULMA JOHNSTON PT Amended: Links added.
--- NOTE | 2019-08-14 10:29 | NUR ---
NURSE NOTES: patient WBC16.7 this morning. post op inguinal hernia repair on 08/13/19. no fever. notified Dr. Farooq. is aware. no new order at this time.
--- NOTE | 2019-08-14 10:36 | NUR ---
NURSE NOTES: RN encouraged the patient to use IS as tolerated.
--- NOTE | 2019-08-14 11:54 | NUR ---
NURSE NOTES: Patient tolerates well more than 500ml by mouth. RN DCed IV fluid and converted to hep lock as Dr. Farooq ordered. order noted and carried out.
[2019-08-14 12:00] VITALS: BP 137/81
--- NOTE | 2019-08-14 12:52 | 48 Hour Post Anesthesia Eval ---
Post Anesthesia Evaluation Procedure: L Inguinal Hernia Repair Date of Evaluation: Aug 14, 2019 Time of Evaluation: 12:51 Blood Pressure Systolic: 134 0: 72 Pulse Rate: 68 Respiratory Rate: 20 Temperature (Fahrenheit): 97.6 O2 Sat by Pulse Oximetry: 98 Airway: patent Nausea: No Vomiting: No Pain Intensity: 2 Hydration Status: adequate Cardiopulmonary Status: stable Mental Status/LOC: patient returned to baseline Follow-up Care/Observations: n/a Post-Anesthesia Complications: none Follow-up care needed: N/A Pawel Cuenca MD Aug 14, 2019 12:52
--- NOTE | 2019-08-14 15:19 | NUR ---
CASE MANAGEMENT: INITIAL REVIEW 54YR OLD MALE FROM HOME CC: ABD PAIN SI: LEFT INGUINAL HERNIA; RENAL INSUFFICIENCY 97.8 85 18 118/86 97% ON RA BUN 24; CREAT 1.4; AST 48; ALT 103 IS: IVF NS BOLUS X1 IV ZOFRAN X1 IV MORPHINE SULFATE X2 IV DEMEROL X2 TORADOL X1 MYLANTA PO X1 BACITRACIN X1 BUPIVACAINE X1 : 3E TELE UNIT PLAN: SURGERY-INGUINAL HERNIA REPAIR WITH MESH
[2019-08-14 16:00] VITALS: BP 131/77
--- NOTE | 2019-08-14 16:30 | NUR ---
NURSE NOTES: patient admitted unit on 08/13/19 as observation. it has been 24hrs at 1610. Notified Capri Rees for the patient's status. waiting for the further order..
--- NOTE | 2019-08-14 18:31 | NUR ---
NURSE NOTES: RN received order from Dr. Farooq. DC observation. change to inpatient. Discharge patient to home on 08/15/19 in the morning. Patient is aware.
--- NOTE | 2019-08-14 18:50 | History & Physical ---
History and Physical History & Physicial Wan Triplett MD Aug 14, 2019 18:50
--- NOTE | 2019-08-14 19:34 | NUR ---
HAND-OFF: Report given to DESMOND Stein.
--- NOTE | 2019-08-14 19:49 | NUR ---
NURSE NOTES: RECEIVED PT FROM DESMOND SANABRIA. PT IS ASLEEP, ON ROOM AIR, NO ACUTE DISTRESS NOTED. STERIL STRIPS ON LEFT ABDOMEN IS INTACT AND DRY. IV ON RIGHT AC 22G IS INTACT AND PATENT. BED IS LOCKED AND LOW, BED ALARMS ACTIVE, SIDE RAILS UP X2 AND CALL LIGHT IS WITHIN REACH. WILL CONTINUE TO MONITOR.
[2019-08-14 20:00] VITALS: BP 125/80
--- NOTE | 2019-08-14 20:30 | History and Physical Report ---
DATE OF ADMISSION: 08/13/2019 CHIEF COMPLAINT: Left lower quadrant abdominal pain. HISTORY OF PRESENT ILLNESS: This is a 54-year-old gentleman with past medical history significant for recent gallstones, status post cholecystectomy who has presented to the emergency room complaining about the left lower quadrant abdominal pain. The patient shortly after initial evaluation was noted to have incarcerated left inguinal hernia down to the scrotum sac and was fortunately able to reduce and subsequently the patient was admitted to the hospital for possible surgical intervention. Shortly after initial evaluation in the ER, the patient was admitted to the hospital with acute left inguinal incarcerated hernia. PAST MEDICAL HISTORY/PAST SURGICAL HISTORY: Significant for acute cholecystitis, status post cholecystectomy. MEDICATIONS AT HOME: Significant for Tylenol No. 3. ALLERGIES: To contrast as well as tape. SOCIAL HISTORY: The patient denies any smoking, alcohol, or drugs. FAMILY HISTORY: Noncontributory. REVIEW OF SYSTEMS: Mostly as above. Denies any dysuria, frequency, hematuria. Complained of left lower quadrant pain. Denies any hemoptysis or hematochezia. Denies any suicidal or homicidal ideation. PHYSICAL EXAMINATION: VITAL SIGNS: On admission is significant for temperature 97.9, pulse of 85, respirations 18, blood pressure 118/86. GENERAL: The patient is awake, responsive, no acute distress. HEAD AND NECK: Pupils are equal and reactive to light. Extraocular movements intact. Neck was supple. No JVD. LUNGS: Good air entry with no wheeze or rales. HEART: S1, S2. Regular rhythm. No gallops. ABDOMEN: Soft, nondistended, nontender. Positive bowel sounds. EXTREMITIES: No cyanosis, clubbing, or edema. PELVIC: Pelvic area has a left inguinal hernia descending anterior to scrotum sac. Has been reduced and surgically repaired already. EXTREMITIES: No cyanosis, clubbing, edema NEUROLOGIC: Cranial nerves II through XII grossly intact. Motor is 5/5 in all extremities. RECTAL: Refused and deferred. GENITOURINARY: Refused and deferred. PSYCHIATRIC: Mood and affect is intact. LABORATORY DATA: On admission from the ER, WBC of 9.2, hemoglobin 13, hematocrit 40, platelets 590. Sodium 143, potassium 4.3, chloride 104, bicarbonate 30, BUN 24, creatinine 1.4. AST of 48, ALT of 103. Lipase is 409. Urinalysis, +1 leukocytes, otherwise insignificant. ASSESSMENT: 1. Acute left inguinal hernia, status post reduction with repair. 2. Acute renal failure. 3. Dehydration. 4. Abnormal liver function. PLAN: Admit the patient to medical floor. The patient has been seen by Dr. Shelton Farooq and has underwent left inguinal hernia repair with mesh implanted. The patient tolerated the procedure well and subsequently the patient most likely is going to be discharged home tomorrow. Continue IV hydration. Monitor laboratory. Wan Triplett M.D. DR: SHIVANI JOB#: [id number] CC:
[2019-08-14] MEDS: Morphine Sulfate 4mg/ml Inj (IV USE ONLY) IVP PRN (21:03)
--- NOTE | 2019-08-14 22:25 | Surgery Progress Note ---
Surgery Progress Note Subjective Procedure Performed left inguinal hernia repair with mesh Symptoms: improved Additional Comments leukocytosis not ready for d/c Objective Last 24 Hour Vital Signs Date Time Temp Pulse Resp B/P (MAP) Pulse Ox O2 Delivery O2 Flow Rate FiO2 08/14/19 20:00 97.5 79 19 125/80 (95) 99 08/14/19 16:00 97.8 68 19 131/77 (95) 99 08/14/19 12:52 68 20 98 08/14/19 12:00 97.7 69 20 137/81 (99) 99 08/14/19 09:00 Room Air 08/14/19 08:00 97.5 78 19 124/78 (93) 99 08/14/19 04:00 97.1 86 19 117/70 (86) 98 08/14/19 00:00 97.3 61 19 122/74 (90) 98 I&O Intake and Output 08/13/19 08/14/19 19:00 07:00 Intake Total 1800 ml 1600 ml Output Total 1300 ml Balance 1800 ml 300 ml Intake Oral 650 ml 700 ml IV Total 1150 ml 900 ml Output Urine Total 1300 ml # Voids 1 2 Dressing: dry Wound: clean Cardiovascular: RSR Respiratory: clear Abdomen: soft, non-tender, present bowel sounds Extremities: edema Laboratory Tests Test 08/14/19 05:30 White Blood Count 16.7 K/UL (4.8-10.8) #H Red Blood Count 3.93 M/UL (4.70-6.10) L Hemoglobin 12.7 G/DL (14.2-18.0) L Hematocrit 36.6 % (42.0-52.0) L Mean Corpuscular Volume 93 FL (80-99) Mean Corpuscular Hemoglobin 32.2 PG (27.0-31.0) H Mean Corpuscular Hemoglobin Concent 34.6 G/DL (32.0-36.0) Red Cell Distribution Width 11.0 % (11.6-14.8) L Platelet Count 504 K/UL (150-450) H Mean Platelet Volume 5.8 FL (6.5-10.1) L Neutrophils (%) (Auto) % (45.0-75.0) Lymphocytes (%) (Auto) % (20.0-45.0) Monocytes (%) (Auto) % (1.0-10.0) Eosinophils (%) (Auto) % (0.0-3.0) Basophils (%) (Auto) % (0.0-2.0) Differential Total Cells Counted 100 Neutrophils % (Manual) 83 % (45-75) H Lymphocytes % (Manual) 8 % (20-45) L Monocytes % (Manual) 7 % (1-10) Eosinophils % (Manual) 1 % (0-3) Basophils % (Manual) 1 % (0-2) Band Neutrophils 0 % (0-8) Platelet Estimate Adequate Platelet Morphology Normal Red Blood Cell Morphology Normal Sodium Level 137 MMOL/L (136-145) Potassium Level 4.8 MMOL/L (3.5-5.1) Chloride Level 102 MMOL/L (98-107) Carbon Dioxide Level 28 MMOL/L (21-32) Anion Gap 7 mmol/L (5-15) Blood Urea Nitrogen 21 mg/dL (7-18) H Creatinine 1.4 MG/DL (0.55-1.30) H Estimat Glomerular Filtration Rate 52.4 mL/min (>60) Glucose Level 139 MG/DL (74-106) H Calcium Level 9.0 MG/DL (8.5-10.1) Plan Problems: (1) Incarcerated left inguinal hernia Assessment & Plan: s/p LIHR w/ mesh leukocytosis tender monitor cont abx d/c planning tomorrow if labs okay (2) Left inguinal hernia Shelton Farooq Aug 14, 2019 22:25
[2019-08-15] VITALS: BP 123/81
[2019-08-15 04:00] VITALS: BP 110/75
[2019-08-15] MEDS: Morphine Sulfate 4mg/ml Inj (IV USE ONLY) IVP PRN ×2 (04:29→08:58)
[2019-08-15 06:12] LABS: BASOPHILS % (AUTO) 0.7 % (0.0-2.0); EOSINOPHILS % (AUTO) 3.2 % (0.0-3.0); HEMATOCRIT 36.9 % (42.0-52.0); HEMOGLOBIN 12.4 G/DL (14.2-18.0); LYMPHOCYTES % (AUTO) 28.9 % (20.0-45.0); MEAN CORPUSCULAR VOLUME 94 FL (80-99); MONOCYTES % (AUTO) 7.6 % (1.0-10.0); NEUTROPHILS % (AUTO) 59.6 % (45.0-75.0); PLATELET COUNT 381 K/UL (150-450); RED BLOOD COUNT 3.93 M/UL (4.70-6.10); RED CELL DISTRIBUTION WIDTH 10.9 % (11.6-14.8); WHITE BLOOD COUNT 11.1 K/UL (4.8-10.8)
[2019-08-15 06:19] LABS: ANION GAP 8 mmol/L (5-15); BLOOD UREA NITROGEN 22 mg/dL (7-18); CALCIUM 8.9 MG/DL (8.5-10.1); CARBON DIOXIDE 28 MMOL/L (21-32); CHLORIDE 104 MMOL/L (98-107); CREATININE 1.4 MG/DL (0.55-1.30); POTASSIUM 4.7 MMOL/L (3.5-5.1); SODIUM 140 MMOL/L (136-145)
--- NOTE | 2019-08-15 07:34 | NUR ---
HAND-OFF: Report given to DESMOND LOOMIS.
--- NOTE | 2019-08-15 07:40 | NUR ---
NURSE NOTES: Received pt from Sarita, RN, pt was eating no c/o pain, no acute distress, call light w/in reach, D/c Plan.
[2019-08-15 08:00] VITALS: BP 124/78
--- NOTE | 2019-08-15 08:00 | NUR ---
NURSE NOTES: notified [place] for patient have VRE rectal positive
[2019-08-15] MEDS: Tamsulosin 0.4mg cap ORAL SCH (08:58)
[2019-08-15] MEDS: Docusate 100mg cap ORAL SCH (08:58)
[2019-08-15 12:00] VITALS: BP 135/78
--- NOTE | 2019-08-15 14:37 | Surgery Progress Note ---
Surgery Progress Note Subjective Procedure Performed left inguinal hernia repair with mesh Symptoms: improved, tolerating diet, voiding well, passing flatus, pain decreased Objective Last 24 Hour Vital Signs Date Time Temp Pulse Resp B/P (MAP) Pulse Ox O2 Delivery O2 Flow Rate FiO2 08/15/19 08:01 Room Air 08/15/19 08:00 97.2 84 18 124/78 (93) 98 08/15/19 04:00 97.4 72 18 110/75 (87) 96 08/15/19 00:00 97.5 81 19 123/81 (95) 99 08/14/19 21:00 Room Air 08/14/19 20:00 97.5 79 19 125/80 (95) 99 08/14/19 16:00 97.8 68 19 131/77 (95) 99 I&O Intake and Output 08/14/19 08/15/19 18:59 06:59 Intake Total 1775 ml Balance 1775 ml Intake Oral 1400 ml IV Total 375 ml # Voids 3 3 Dressing: dry Wound: clean Cardiovascular: RSR Respiratory: clear Abdomen: soft, flat, non-tender, present bowel sounds Extremities: no edema, no tenderness, no cyanosis Laboratory Tests Test 08/15/19 05:30 White Blood Count 11.1 K/UL (4.8-10.8) H Red Blood Count 3.93 M/UL (4.70-6.10) L Hemoglobin 12.4 G/DL (14.2-18.0) L Hematocrit 36.9 % (42.0-52.0) L Mean Corpuscular Volume 94 FL (80-99) Mean Corpuscular Hemoglobin 31.5 PG (27.0-31.0) H Mean Corpuscular Hemoglobin Concent 33.6 G/DL (32.0-36.0) Red Cell Distribution Width 10.9 % (11.6-14.8) L Platelet Count 381 K/UL (150-450) Mean Platelet Volume 5.8 FL (6.5-10.1) L Neutrophils (%) (Auto) 59.6 % (45.0-75.0) Lymphocytes (%) (Auto) 28.9 % (20.0-45.0) Monocytes (%) (Auto) 7.6 % (1.0-10.0) Eosinophils (%) (Auto) 3.2 % (0.0-3.0) H Basophils (%) (Auto) 0.7 % (0.0-2.0) Sodium Level 140 MMOL/L (136-145) Potassium Level 4.7 MMOL/L (3.5-5.1) Chloride Level 104 MMOL/L (98-107) Carbon Dioxide Level 28 MMOL/L (21-32) Anion Gap 8 mmol/L (5-15) Blood Urea Nitrogen 22 mg/dL (7-18) H Creatinine 1.4 MG/DL (0.55-1.30) H Estimat Glomerular Filtration Rate 52.4 mL/min (>60) Glucose Level 122 MG/DL (74-106) H Calcium Level 8.9 MG/DL (8.5-10.1) Plan Problems: (1) Incarcerated left inguinal hernia Assessment & Plan: s/p LIHR w/ mesh leukocytosis tender monitor cont abx d/c tj rx written f/u given (2) Left inguinal hernia Shelton Farooq Aug 15, 2019 14:37
[2019-08-15] MEDS ORDERED: Tubing IV Secondary IV ONE (14:51)
[2019-08-15] MEDS ORDERED: NORCO 5-325 TA1 EACH ORAL (15:02)
[2019-08-15] MEDS ORDERED: COLACE100 MG ORAL (15:03)
--- NOTE | 2019-08-15 16:18 | Internal Med Progress Note ---
Subjective Date of Service: Aug 15, 2019 Physician Name Singh,Issa Attending Physician Shelton Farooq Current Medications Medications (Trade) Dose Ordered Sig/Mckenzie Route PRN Reason Start Time Stop Time Status Last Admin Dose Admin Acetaminophen (Tylenol) 650 mg Q4H PRN ORAL FEVER 08/13/19 16:15 09/12/19 16:14 Acetaminophen (Tylenol) 650 mg Q6H PRN ORAL Mild Pain (Pain Scale 1-3) 08/13/19 16:15 09/12/19 16:14 08/15/19 14:43 Acetaminophen/ Hydrocodone Bitart ([place] 10/325) 1 tab Q4H PRN ORAL Severe Pain (Pain Scale 7-10) 08/13/19 16:15 08/20/19 16:14 08/14/19 00:41 Acetaminophen/ Hydrocodone Bitart ([place] 5/325) 1 tab Q4H PRN ORAL Moderate Pain (Pain Scale 4-6) 08/13/19 16:15 08/20/19 16:14 08/13/19 20:15 Al Hydroxide/Mg Hydroxide (Mylanta) 15 ml Q6H PRN ORAL DYSPEPSIA 08/13/19 16:15 09/12/19 16:14 Diphenhydramine HCl (Benadryl) 25 mg Q8H PRN ORAL Itching/Pruritis 08/13/19 16:15 09/12/19 16:14 Docusate Sodium (Colace) 100 mg TWICE A DAY ORAL 08/13/19 18:00 09/12/19 17:59 08/15/19 08:58 Magnesium Hydroxide (Mom) 30 ml BIDPRN PRN ORAL Constipation 08/13/19 16:15 09/12/19 16:14 Morphine Sulfate (Morphine Sulfate) 1 mg Q4H PRN IVP pain scale 1-3 08/13/19 16:15 08/20/19 16:14 Morphine Sulfate (Morphine Sulfate) 2 mg Q4H PRN IVP pain scale 4-6 08/13/19 16:15 08/20/19 16:14 08/14/19 13:03 Morphine Sulfate (Morphine Sulfate) 4 mg Q4H PRN IVP pain score 7-10 08/13/19 16:15 08/20/19 16:14 08/15/19 08:58 Ondansetron HCl (Zofran) 4 mg Q6H PRN IVP Nausea & Vomiting 08/13/19 16:15 09/12/19 16:14 Tamsulosin HCl (Flomax) 0.4 mg DAILY ORAL 08/14/19 06:30 09/13/19 06:29 08/15/19 08:58 Temazepam (Restoril) 7.5 mg DAILYPRN PRN ORAL Insomnia 08/13/19 16:15 08/20/19 16:14 Allergies: Uncoded Allergies: CONTRAST (Allergy, Intermediate, rash, 08/13/19) TAPE (Allergy, Unknown, 08/13/19) ROS Limited/Unobtainable: No Constitutional: Reports: no symptoms HEENT: Reports: no symptoms Cardiovascular: Reports: no symptoms Respiratory: Reports: no symptoms Gastrointestinal/Abdominal: Reports: abdominal pain Genitourinary: Reports: no symptoms Neurologic/Psychiatric: Reports: no symptoms Subjective 54 YO M admitted with incarcerated left inguinal hernia. Now S/P left inguinal hernia repair with mesh 08/13/19. Cover for Int Steven-Dr Triplett Objective Last Vital Signs Date Time Temp Pulse Resp B/P (MAP) Pulse Ox O2 Delivery O2 Flow Rate FiO2 08/15/19 12:00 97.8 78 18 135/78 (97) 98 08/15/19 08:01 Room Air 08/13/19 15:10 6 Laboratory Tests Test 08/15/19 05:30 White Blood Count 11.1 K/UL (4.8-10.8) H Red Blood Count 3.93 M/UL (4.70-6.10) L Hemoglobin 12.4 G/DL (14.2-18.0) L Hematocrit 36.9 % (42.0-52.0) L Mean Corpuscular Volume 94 FL (80-99) Mean Corpuscular Hemoglobin 31.5 PG (27.0-31.0) H Mean Corpuscular Hemoglobin Concent 33.6 G/DL (32.0-36.0) Red Cell Distribution Width 10.9 % (11.6-14.8) L Platelet Count 381 K/UL (150-450) Mean Platelet Volume 5.8 FL (6.5-10.1) L Neutrophils (%) (Auto) 59.6 % (45.0-75.0) Lymphocytes (%) (Auto) 28.9 % (20.0-45.0) Monocytes (%) (Auto) 7.6 % (1.0-10.0) Eosinophils (%) (Auto) 3.2 % (0.0-3.0) H Basophils (%) (Auto) 0.7 % (0.0-2.0) Sodium Level 140 MMOL/L (136-145) Potassium Level 4.7 MMOL/L (3.5-5.1) Chloride Level 104 MMOL/L (98-107) Carbon Dioxide Level 28 MMOL/L (21-32) Anion Gap 8 mmol/L (5-15) Blood Urea Nitrogen 22 mg/dL (7-18) H Creatinine 1.4 MG/DL (0.55-1.30) H Estimat Glomerular Filtration Rate 52.4 mL/min (>60) Glucose Level 122 MG/DL (74-106) H Calcium Level 8.9 MG/DL (8.5-10.1) Microbiology Date/Time Source Procedure Growth Status 08/13/19 13:00 Nasal Nares MRSA Culture - Final NO METHICILLIN RESISTANT STAPH AUREUS... Complete 08/13/19 13:00 Rectum VRE Culture - Final Enterococcus Faecalis - Vre Complete 08/13/19 13:00 Rectum Received Intake and Output 08/14/19 08/15/19 18:59 06:59 Intake Total 1775 ml Balance 1775 ml Intake Oral 1400 ml IV Total 375 ml # Voids 3 3 Objective PHYSICAL EXAMINATION: GENERAL: The patient is awake, responsive, no acute distress. HEAD AND NECK: Pupils are equal and reactive to light. Extraocular movements intact. Neck was supple. No JVD. LUNGS: Good air entry with no wheeze or rales. HEART: S1, S2. Regular rhythm. No gallops. ABDOMEN: Soft, nondistended, nontender. Positive bowel sounds. EXTREMITIES: No cyanosis, clubbing, or edema. PELVIC: Pelvic area has a left inguinal hernia descending anterior to scrotum sac. Has been reduced and surgically repaired already. EXTREMITIES: No cyanosis, clubbing, edema NEUROLOGIC: Cranial nerves II through XII grossly intact. Motor is 5/5 in all extremities. RECTAL: Refused and deferred. GENITOURINARY: Refused and deferred. PSYCHIATRIC: Mood and affect is intact. Assessment/Plan Assessment/Plan ASSESSMENT: 1. Acute left inguinal hernia, status post reduction with repair 08/13/19. 2. Acute renal failure. 3. Dehydration. 4. Abnormal liver function. PLAN: Admit the patient to medical floor. Surgery=Dr. Shelton Farooq. S/P left inguinal hernia repair with mesh implanted 08/13/19. discharge home today per surgery Issa Singh MD Aug 15, 2019 16:18
--- NOTE | 2019-08-15 18:00 | NUR ---
NURSE NOTES: discharged pt in stable condition. incision site was clean and dry. headache was much better. discharge instruction was given.
--- NOTE | 2019-08-16 19:04 | Discharge Summary ---
Discharge Summary Discharge Summary _ DATE OF ADMISSION: 08/13/2019 DATE OF DISCHARGE: 08/15/1990 DISCHARGED BY: Dr. Triplett REASON FOR ADMISSION: 54 years old male with past medical history of recent gallstones, status post cholecystectomy, presented to emergency department complaining of left lower quadrant abdominal pain. Shortly after initial evaluation patient was found to have incarcerated left inguinal hernia down to the scrotum. In emergency department patient undergone reduction of left inguinal hernia , which was partially reduced , approximately 80% with direct pressure. Emergency room physician was unable to fully reduce the inguinal hernia. Laboratory work-up revealed no leukocytosis , stable hemoglobin and hematocrit. Platelet count 590. BUN 20, creatinine 1.4. Glucose 109. AST 48, ALT 103. Total bilirubin 0.4. Lipase 409. Urinalysis revealed no evidence of UTI. Patient subsequently admitted for further management and possible surgical intervention CONSULTANTS: surgery Dr. Farooq [facility] COURSE: Patient admitted to medical surgical floor. Surgeon consulted. Despite r partial reduction in emergency department, hernia recurred with minimal cord movement into the scrotal sac with bowel. Surgeon recommended admission and surgical repair. Patient was kept n.p.o. and started on the IV fluids . Patient started on empiric antibiotic. Patient subsequently undergone on 08/13 left inguinal hernia repair with mesh. Pain management was addressed. The next day patient developed leukocytosis with WBC 16.7. Antibiotics continued. Symptomatic care provided. Incentive spirometry was encouraged while in the bed. The next day WBC down to 11.1. Patient remained afebrile. Patient started on diet and was able to tolerate diet. Patient voided without difficulty. Renal parameters and electrolytes were closely monitored. Electrolytes remained stable. Creatinine remained at baseline. Patient clinically stabilized and was ready for discharge home. Outpatient follow-up with surgeon. FINAL DIAGNOSES: Acute left inguinal hernia, Status post left inguinal hernia repair with mesh Acute renal failure Dehydration Abnormal liver function test DISCHARGE MEDICATIONS: See Medication Reconciliation list. DISCHARGE INSTRUCTIONS: Patient was discharged home . Follow up with primary care provider in one week. I have been assigned to dictate discharge summary for this account. I was not involved in the patient's management. Hailey Washingotn NP Aug 16, 2019 19:04
== END 2019-08-15 18:11 | disposition home or self-care (01) | DRG 228 ==
LOC: EMR 08:29 → EDBEDREQSVC 13:15 → EDBEDREQ 13:15 → SUR 13:21 → INTOOBSV 15:51 → 3E 15:51 → OBSVTOIN 18:28
PROC: 0YU60JZ Supplement Left Inguinal Region with Synthetic Substitute, Open Approach (ICD-10-PCS; principal; 2019-08-13 13:30)
DX: K40.30 Unilateral inguinal hernia, with obstruction, without gangrene, not specified as recurrent (principal); N17.9 Acute kidney failure, unspecified; E86.0 Dehydration; R94.5 Abnormal results of liver function studies
CPT/HCPCS: 36415; 51702; 51798; 80048; 80053; 81003; 83690; 85007; 85025; 86900; 86901; 87081; 94003; 94150; 96360; 96361; 96374; 96375; 96376; 99284; J2250; J2405; J2710; J7030